=== PATIENT | male | born 1970 | race Two or more races ===

== ENCOUNTER 2018-01-30 04:41 | Inpatient (IN) | payer OTHER ==
[~2018-01-30] VITALS: Ht 170.2 cm; Wt 77.1 kg
[~2018-01-30 04:41] MED LIST: AMLO5TAB7 PO; ATOR20TA PO; CARV12.52 PO; CYAN100T3 PO; DARB100V IJ; INSU100I19 SQ; LACT10SO PO; LANC-346 MC; LEVO500C3 PO; LISI-603 PO; METR500T PO; PANT40TA2 PO; SEVE800T7 PO; SUB--70 MC
[2018-01-30 05:35] LABS: EOSINOPHILS % (AUTO) 0.1 % (0.0-6.0); HEMATOCRIT 28 % (39-51); HEMOGLOBIN 9.5 g/dL (13.5-17.5); LYMPHOCYTES # (AUTO) 1.5 /CMM (0.8-4.8); LYMPHOCYTES % (AUTO) 8.2 % (20.0-44.0); MEAN CORPUSCULAR HGB CONC 34 g/dl (31.0-36.0); MEAN CORPUSCULAR VOLUME 91 fL (80-96); MONOCYTES # (AUTO) 2.1 /CMM (0.1-1.30); MONOCYTES % (AUTO) 11.5 % (2.0-12.0); NEUTROPHILS # (AUTO) 14.9 /CMM (1.8-8.9); NEUTROPHILS % (AUTO) 80.2 % (43.0-81.0); PLATELET COUNT (AUTO) 232 /CMM (150-450); RDW COEFFICIENT OF VARIATION 16.3 (11.5-15.0); RED BLOOD CELL COUNT(AUTO) 3.06 MIL/uL (4.5-6.0); WHITE BLOOD COUNT (AUTO) 18.6 K/uL (4.3-11.0)
[2018-01-30] MEDS ORDERED: CEPH-570 PO (05:36)
[2018-01-30] MEDS ORDERED: HYDR-552 PO (05:36)
[2018-01-30] MEDS ORDERED: CARV25TA2 PO (05:36)
[2018-01-30] MEDS ORDERED: AMLO10TA6 PO (05:36)
[2018-01-30] MEDS ORDERED: CHOL100040 PO (05:36)
[2018-01-30] MEDS ORDERED: HYDR-4075 PO (05:36)
[2018-01-30 05:46] LABS: INR 1.3 (0.87-1.13)
[2018-01-30 05:49] LABS: TROPONIN I 0.033 ng/mL (0.00-0.056)
[2018-01-30 05:53] LABS: ALANINE AMINOTRANSFERASE 27 U/L (12-78); ALBUMIN 2.8 g/dL (3.4-5.0); ALKALINE PHOSPHATASE 205 U/L (46-116); ASPARTATE AMINOTRANSFERASE 35 U/L (15-37); BILIRUBIN,DIRECT 0.6 mg/dL (0.0-0.2); BILIRUBIN,TOTAL 1.6 mg/dL (0.2-1.0); CALCIUM, SERUM 8.8 mg/dL (8.5-10.1); CARBON DIOXIDE 24 mmol/L (21-32); CHLORIDE 92 mmol/L (98-107); GLUCOSE 146 mg/dL (74-106); POTASSIUM 5.3 mmol/L (3.5-5.1); SODIUM SERUM 133 mmol/L (136-145); TOTAL PROTEIN, SERUM 8.4 g/dL (6.4-8.2)
[2018-01-30 05:56] LABS: CREATININE 10.6 mg/dL (0.6-1.3); UREA NITROGEN, BLOOD 92 mg/dL (7-18)
[2018-01-30 05:57] LABS: MAGNESIUM 2.3 mg/dL (1.8-2.4); PHOSPHORUS 4.7 mg/dL (2.5-4.9)
[2018-01-30] MEDS ORDERED: VANCOMYCIN 1 GM VIAL ONE (05:59)
[2018-01-30] MEDS ORDERED: VANCOMYCIN 1 GM in IV D5W 250 ML IV ONE (06:00)
[2018-01-30] MEDS ORDERED: PIPERACILLIN /TAZOBACTAM 2.25 G in IV D5W 50 ML IV ONE (06:00)
[2018-01-30] MEDS ORDERED: SODIUM POLYSTYRENE SULFONATE 15 G/60 ML BOTTLE PO ONE (06:00)
[2018-01-30] MEDS ORDERED: PIPERACILLIN /TAZOBACTAM 2.25 G VIAL IV ONE (06:05)
[2018-01-30] MEDS ORDERED: SODIUM POLYSTYRENE SULFONATE 15 G/60 ML BOTTLE ONE (06:14)
[2018-01-30] MEDS ORDERED: MAGNESIUM HYDROXIDE 30 ML UDC PO PRN (06:30)
[2018-01-30] MEDS ORDERED: ZOLPIDEM TARTRATE 5 MG TABLET PO PRN (06:30)
[2018-01-30] MEDS ORDERED: ONDANSETRON HCL/PF 4 MG/2 ML VIAL IVP PRN (06:30)
[2018-01-30] MEDS ORDERED: MAG HYDROX/AL HYDROX/SIMETH 30 ML UDC PO PRN (06:30)
[2018-01-30] MEDS ORDERED: Z GUARD REMEDY 2 OZ OINT TP PRN (06:30)
[2018-01-30 07:48] LABS: CHOLESTEROL 84 mg/dL (<200); HDL CHOLESTEROL 19 mg/dL (40-60); LDL 21 mg/dL (0-99); TRIGLYCERIDES 167 mg/dL (30-150)
[2018-01-30] MEDS ORDERED: FEE PK DOSING 1 MIN EA MC ONE (07:55)
[2018-01-30 08:00] VITALS: BP 131/84
[2018-01-30] MEDS ORDERED: VANCOMYCIN 500 MG in IV D5W 100 ML IV PRN (08:00)
[2018-01-30] MEDS: PANTOPRAZOLE 40 MG TABLET.DR PO SCH (08:11)
[2018-01-30] MEDS ORDERED: ATOR40TA PO (08:13)
[2018-01-30] MEDS ORDERED: ERGO500014 PO (08:13)
[2018-01-30] MEDS ORDERED: FOLI0.8T23 PO (08:13)
[2018-01-30] MEDS: ACETAMINOPHEN 325 MG TABLET PO PRN ×2 (08:23→20:23)
[2018-01-30] MEDS ORDERED: DEXTROSE 50%-WATER 50 ML DISP.SYRIN IV PRN (10:30)
[2018-01-30 12:00] VITALS: BP 123/68
[2018-01-30] MEDS: BLOOD SUGAR DIAGNOSTIC 1 EACH STRIP IN SCH ×3 (12:16→21:06)
[2018-01-30] MEDS: PIPERACILLIN /TAZOBACTAM 2.25 G in IV D5W 50 ML IV SCH ×2 (12:24→20:22)
[2018-01-30] MEDS: INSULIN REGULAR, HUMAN 100 UNIT/ML 3 ML VIAL SQ PRN ×4 (12:41→21:09)
[2018-01-30] MEDS ORDERED: HYDROCODONE/APAP 5/325MG 1 EACH TABLET PO PRN (14:00)
[2018-01-30] MEDS: ERGOCALCIFEROL (VITAMIN D 2) 50,000 UNIT CAPSULE PO SCH (14:37)
[2018-01-30 16:00] VITALS: BP 138/74
[2018-01-30] MEDS: SEVELAMER CARBONATE 800 MG TABLET PO SCH (18:17)
[2018-01-30 20:00] VITALS: BP 108/63
[2018-01-30] MEDS: HYDROCODONE/APAP 5/325MG 1 EACH TABLET PO PRN (20:23)
[2018-01-30] MEDS: CARVEDILOL 12.5 MG TABLET PO SCH (20:23)
[2018-01-30 21:00] VITALS: BP 108/63
[2018-01-31] VITALS: BP_SYST 108; BP_SYST 115; BP_DIAS 51; BP_DIAS 63
[2018-01-31] MEDS: ACETAMINOPHEN 325 MG TABLET PO PRN ×4 (02:44→20:07)
[2018-01-31 04:00] VITALS: BP 119/59
[2018-01-31] MEDS: PIPERACILLIN /TAZOBACTAM 2.25 G in IV D5W 50 ML IV SCH ×3 (04:15→21:46)
[2018-01-31 06:41] LABS: CALCIUM, SERUM 8.1 mg/dL (8.5-10.1); MAGNESIUM 2.1 mg/dL (1.8-2.4); PHOSPHORUS 4.5 mg/dL (2.5-4.9); POTASSIUM 4.4 mmol/L (3.5-5.1)
[2018-01-31 06:45] LABS: CREATININE 8.2 mg/dL (0.6-1.3); EOSINOPHILS % (AUTO) 0.3 % (0.0-6.0); HEMATOCRIT 24 % (39-51); HEMOGLOBIN 7.9 g/dL (13.5-17.5); LYMPHOCYTES # (AUTO) 1.5 /CMM (0.8-4.8); MEAN CORPUSCULAR HGB CONC 34 g/dl (31.0-36.0); MEAN CORPUSCULAR VOLUME 92 fL (80-96); MONOCYTES # (AUTO) 1.5 /CMM (0.1-1.30); MONOCYTES % (AUTO) 11.2 % (2.0-12.0); NEUTROPHILS # (AUTO) 10.4 /CMM (1.8-8.9); NEUTROPHILS % (AUTO) 77.5 % (43.0-81.0); PLATELET COUNT (AUTO) 184 /CMM (150-450); RED BLOOD CELL COUNT(AUTO) 2.59 MIL/uL (4.5-6.0); WHITE BLOOD COUNT (AUTO) 13.4 K/uL (4.3-11.0)
[2018-01-31] MEDS ORDERED: PANTOPRAZOLE 40 MG TABLET.DR PO SCH (07:30)
[2018-01-31 08:00] VITALS: BP 115/61
[2018-01-31] MEDS: BLOOD SUGAR DIAGNOSTIC 1 EACH STRIP IN SCH ×4 (08:05→21:54)
[2018-01-31] MEDS: INSULIN REGULAR, HUMAN 100 UNIT/ML 3 ML VIAL SQ PRN ×3 (08:37→21:55)
[2018-01-31] MEDS: FOLIC ACID 1 MG TABLET PO SCH (08:48)
[2018-01-31] MEDS: VITAMIN B COMP W-C 1 TAB TABLET PO SCH (08:48)
[2018-01-31] MEDS: SEVELAMER CARBONATE 800 MG TABLET PO SCH ×3 (08:49→17:08)
[2018-01-31] MEDS: PANTOPRAZOLE 40 MG TABLET.DR PO SCH (08:49)
[2018-01-31] MEDS: ATORVASTATIN 40 MG TABLET PO SCH (08:49)
[2018-01-31] MEDS: AMLODIPINE BESYLATE 10 MG TABLET PO SCH (08:50)
[2018-01-31] MEDS: CARVEDILOL 12.5 MG TABLET PO SCH ×2 (08:50→21:47)
[2018-01-31] MEDS: hydrALAZINE HCL 10 MG TABLET PO SCH (08:51)
[2018-01-31] MEDS: LISINOPRIL (20MG) 20 MG TABLET PO SCH (08:51)
[2018-01-31 12:00] VITALS: BP 104/50
[2018-01-31] MEDS: HYDROCODONE/APAP 5/325MG 1 EACH TABLET PO PRN (14:45)
[2018-01-31 16:00] VITALS: BP_SYST 104; BP_SYST 109; BP_DIAS 50; BP_DIAS 54
[2018-01-31] MEDS: LACTOBACILLUS RHAMNOSUS GG 1 EACH CAP.SPRINK PO SCH (17:08)
[2018-01-31 20:00] VITALS: BP 119/57
[2018-02-01] VITALS (7 sets, daily range): BP systolic 77–108; BP diastolic 37–55
[2018-02-01] MEDS ORDERED: DEXAMETHASONE SOD PHOSPHATE 10 MG/ML VIAL ONE (04:29)
[2018-02-01] MEDS: PIPERACILLIN /TAZOBACTAM 2.25 G in IV D5W 50 ML IV SCH ×2 (04:57→14:11)
[2018-02-01] MEDS: ACETAMINOPHEN 325 MG TABLET PO PRN ×3 (05:37→20:13)
[2018-02-01] MEDS: PANTOPRAZOLE 40 MG TABLET.DR PO SCH (07:30)
[2018-02-01 07:45] LABS: EOSINOPHILS % (AUTO) 0.4 % (0.0-6.0); LYMPHOCYTES # (AUTO) 0.9 /CMM (0.8-4.8); LYMPHOCYTES % (AUTO) 5.6 % (20.0-44.0); MEAN CORPUSCULAR HGB CONC 34 g/dl (31.0-36.0); MEAN CORPUSCULAR VOLUME 91 fL (80-96); MONOCYTES # (AUTO) 1.5 /CMM (0.1-1.30); NEUTROPHILS # (AUTO) 13.9 /CMM (1.8-8.9); PLATELET COUNT (AUTO) 196 /CMM (150-450); RDW COEFFICIENT OF VARIATION 16.4 (11.5-15.0); RED BLOOD CELL COUNT(AUTO) 2.22 MIL/uL (4.5-6.0); WHITE BLOOD COUNT (AUTO) 16.4 K/uL (4.3-11.0)
[2018-02-01 07:47] LABS: CALCIUM, SERUM 7.9 mg/dL (8.5-10.1); MAGNESIUM 2.3 mg/dL (1.8-2.4); PHOSPHORUS 4.5 mg/dL (2.5-4.9); POTASSIUM 4.3 mmol/L (3.5-5.1)
[2018-02-01 07:48] LABS: HEMOGLOBIN 6.8 g/dL (13.5-17.5)
[2018-02-01 07:49] LABS: HEMATOCRIT 20 % (39-51)
[2018-02-01] MEDS: AMLODIPINE BESYLATE 10 MG TABLET PO SCH (09:00)
[2018-02-01] MEDS: hydrALAZINE HCL 10 MG TABLET PO SCH (09:00)
[2018-02-01] MEDS ORDERED: LIDOCAINE 1% INJ 50 ML MDV IJ ONE (09:00)
[2018-02-01] MEDS: LISINOPRIL (20MG) 20 MG TABLET PO SCH (09:00)
[2018-02-01] MEDS: CARVEDILOL 12.5 MG TABLET PO SCH ×2 (09:00→20:59)
[2018-02-01] MEDS: BLOOD SUGAR DIAGNOSTIC 1 EACH STRIP IN SCH ×4 (09:02→22:35)
[2018-02-01] MEDS: SEVELAMER CARBONATE 800 MG TABLET PO SCH ×3 (09:11→17:25)
[2018-02-01] MEDS: LACTOBACILLUS RHAMNOSUS GG 1 EACH CAP.SPRINK PO SCH ×2 (09:11→17:25)
[2018-02-01] MEDS: VITAMIN B COMP W-C 1 TAB TABLET PO SCH (09:11)
[2018-02-01] MEDS: FOLIC ACID 1 MG TABLET PO SCH (09:11)
[2018-02-01] MEDS: ATORVASTATIN 40 MG TABLET PO SCH (09:12)
[2018-02-01 09:49] LABS: BAND % (MANUAL) 1 % (0.0-5.0); EOSINOPHILS % (MANUAL) 1 % (0-4); LYMPHOCYTES % (MANUAL) 8 % (16-48); MONOCYTES % (MANUAL) 8 % (0-11.0); NEUTROPHILS % (MANUAL) 82 (42-76)
[2018-02-01] MEDS ORDERED: VANCOMYCIN 1 GM in IV D5W 250 ML IV ONE (15:00)
[2018-02-01] MEDS: RIFAMPIN 300 MG CAPSULE PO SCH (17:38)
[2018-02-01] MEDS: INSULIN REGULAR, HUMAN 100 UNIT/ML 3 ML VIAL SQ PRN (17:48)
[2018-02-02 04:00] VITALS: BP 102/49
[2018-02-02 06:33] LABS: BASOPHILS % (AUTO) 0.2 % (0.0-2.0); EOSINOPHILS % (AUTO) 0.4 % (0.0-6.0); HEMATOCRIT 23 % (39-51); HEMOGLOBIN 7.7 g/dL (13.5-17.5); LYMPHOCYTES # (AUTO) 1.3 /CMM (0.8-4.8); LYMPHOCYTES % (AUTO) 8.9 % (20.0-44.0); MEAN CORPUSCULAR HGB CONC 34 g/dl (31.0-36.0); MEAN CORPUSCULAR VOLUME 91 fL (80-96); MONOCYTES # (AUTO) 1.2 /CMM (0.1-1.30); MONOCYTES % (AUTO) 8.1 % (2.0-12.0); NEUTROPHILS # (AUTO) 12.3 /CMM (1.8-8.9); NEUTROPHILS % (AUTO) 82.4 % (43.0-81.0); PLATELET COUNT (AUTO) 235 /CMM (150-450); RED BLOOD CELL COUNT(AUTO) 2.51 MIL/uL (4.5-6.0)
[2018-02-02 06:53] LABS: CALCIUM, SERUM 8.3 mg/dL (8.5-10.1); POTASSIUM 4.5 mmol/L (3.5-5.1)
[2018-02-02 07:09] LABS: CREATININE 7.9 mg/dL (0.6-1.3)
[2018-02-02 08:00] VITALS: BP 125/47
[2018-02-02] MEDS: ACETAMINOPHEN 325 MG TABLET PO PRN ×3 (08:09→22:56)
[2018-02-02] MEDS: ATORVASTATIN 40 MG TABLET PO SCH (08:10)
[2018-02-02] MEDS: FOLIC ACID 1 MG TABLET PO SCH (08:11)
[2018-02-02] MEDS: LACTOBACILLUS RHAMNOSUS GG 1 EACH CAP.SPRINK PO SCH ×2 (08:14→16:57)
[2018-02-02] MEDS: VITAMIN B COMP W-C 1 TAB TABLET PO SCH (08:14)
[2018-02-02] MEDS: PANTOPRAZOLE 40 MG TABLET.DR PO SCH (08:17)
[2018-02-02] MEDS: RIFAMPIN 300 MG CAPSULE PO SCH (08:18)
[2018-02-02] MEDS: SEVELAMER CARBONATE 800 MG TABLET PO SCH ×3 (08:18→17:00)
[2018-02-02] MEDS: BLOOD SUGAR DIAGNOSTIC 1 EACH STRIP IN SCH ×4 (08:33→21:35)
[2018-02-02] MEDS: hydrALAZINE HCL 10 MG TABLET PO SCH (08:33)
[2018-02-02] MEDS: AMLODIPINE BESYLATE 10 MG TABLET PO SCH (08:34)
[2018-02-02] MEDS: LISINOPRIL (20MG) 20 MG TABLET PO SCH (08:34)
[2018-02-02] MEDS: CARVEDILOL 12.5 MG TABLET PO SCH ×2 (08:34→20:28)
[2018-02-02] MEDS: INSULIN REGULAR, HUMAN 100 UNIT/ML 3 ML VIAL SQ PRN ×3 (13:20→21:36)
[2018-02-02 16:00] VITALS: BP 122/45
[2018-02-02 20:15] VITALS: BP 97/67
[2018-02-03 04:00] VITALS: BP 136/56
[2018-02-03 07:00] LABS: BASOPHILS # (AUTO) 0.2 /CMM (0.0-0.2); BASOPHILS % (AUTO) 1.6 % (0.0-2.0); EOSINOPHILS % (AUTO) 0.4 % (0.0-6.0); HEMATOCRIT 23 % (39-51); LYMPHOCYTES # (AUTO) 1.2 /CMM (0.8-4.8); LYMPHOCYTES % (AUTO) 8.3 % (20.0-44.0); MEAN CORPUSCULAR HGB CONC 34 g/dl (31.0-36.0); MEAN CORPUSCULAR VOLUME 91 fL (80-96); MONOCYTES # (AUTO) 1.1 /CMM (0.1-1.30); MONOCYTES % (AUTO) 7.7 % (2.0-12.0); NEUTROPHILS # (AUTO) 11.5 /CMM (1.8-8.9); PLATELET COUNT (AUTO) 298 /CMM (150-450); RDW COEFFICIENT OF VARIATION 16.6 (11.5-15.0); RED BLOOD CELL COUNT(AUTO) 2.59 MIL/uL (4.5-6.0)
[2018-02-03] MEDS: PANTOPRAZOLE 40 MG TABLET.DR PO SCH (07:30)
[2018-02-03 07:40] LABS: CALCIUM, SERUM 8.4 mg/dL (8.5-10.1); POTASSIUM 4.9 mmol/L (3.5-5.1)
[2018-02-03 07:41] LABS: CREATININE 9.8 mg/dL (0.6-1.3)
[2018-02-03 08:00] VITALS: BP 126/58
[2018-02-03] MEDS: SEVELAMER CARBONATE 800 MG TABLET PO SCH ×3 (08:00→17:03)
[2018-02-03] MEDS: hydrALAZINE HCL 10 MG TABLET PO SCH (09:00)
[2018-02-03] MEDS: RIFAMPIN 300 MG CAPSULE PO SCH (09:00)
[2018-02-03] MEDS: LISINOPRIL (20MG) 20 MG TABLET PO SCH (09:00)
[2018-02-03] MEDS: CARVEDILOL 12.5 MG TABLET PO SCH ×2 (09:00→21:00)
[2018-02-03] MEDS: AMLODIPINE BESYLATE 10 MG TABLET PO SCH (09:00)
[2018-02-03] MEDS: LACTOBACILLUS RHAMNOSUS GG 1 EACH CAP.SPRINK PO SCH ×2 (09:00→17:03)
[2018-02-03] MEDS: VITAMIN B COMP W-C 1 TAB TABLET PO SCH (09:00)
[2018-02-03] MEDS: FOLIC ACID 1 MG TABLET PO SCH (09:00)
[2018-02-03] MEDS: ATORVASTATIN 40 MG TABLET PO SCH (09:00)
[2018-02-03] MEDS ORDERED: EPOETIN ALFA (10,000 UNIT) 10,000 UNIT/ML VIAL SQ ONE (09:00)
[2018-02-03] MEDS: BLOOD SUGAR DIAGNOSTIC 1 EACH STRIP IN SCH ×4 (10:05→21:35)
[2018-02-03] MEDS ORDERED: BUPIVACAINE 0.25% 75 MG/30 ML VIAL ONE (12:02)
[2018-02-03] MEDS ORDERED: MIDAZOLAM HCL 2 MG/2ML VIAL ONE (12:03)
[2018-02-03] MEDS ORDERED: FENTANYL PF 100MCG/2ML AMPUL ONE (12:03)
[2018-02-03 12:05] VITALS: BP 139/64
[2018-02-03] MEDS: INSULIN REGULAR, HUMAN 100 UNIT/ML 3 ML VIAL SQ PRN ×3 (14:16→21:53)
[2018-02-03 16:00] VITALS: BP 146/68
[2018-02-03] MEDS: ACETAMINOPHEN 325 MG TABLET PO PRN (19:50)
[2018-02-03 20:00] VITALS: BP 119/54
[2018-02-04] VITALS: BP_SYST 110; BP_SYST 119; BP_DIAS 54; BP_DIAS 62
[2018-02-04 04:00] VITALS: BP 123/59
[2018-02-04 07:18] LABS: CALCIUM, SERUM 8.4 mg/dL (8.5-10.1); POTASSIUM 4.8 mmol/L (3.5-5.1)
[2018-02-04 07:33] LABS: CREATININE 9.7 mg/dL (0.6-1.3)
[2018-02-04 08:00] VITALS: BP 127/61
[2018-02-04] MEDS: SEVELAMER CARBONATE 800 MG TABLET PO SCH ×3 (08:29→17:23)
[2018-02-04] MEDS: PANTOPRAZOLE 40 MG TABLET.DR PO SCH (08:29)
[2018-02-04] MEDS: BLOOD SUGAR DIAGNOSTIC 1 EACH STRIP IN SCH ×4 (08:29→21:41)
[2018-02-04] MEDS: INSULIN REGULAR, HUMAN 100 UNIT/ML 3 ML VIAL SQ PRN ×3 (08:52→17:32)
[2018-02-04] MEDS: ATORVASTATIN 40 MG TABLET PO SCH (08:53)
[2018-02-04] MEDS: RIFAMPIN 300 MG CAPSULE PO SCH (08:53)
[2018-02-04] MEDS: LACTOBACILLUS RHAMNOSUS GG 1 EACH CAP.SPRINK PO SCH ×2 (08:53→17:23)
[2018-02-04] MEDS: VITAMIN B COMP W-C 1 TAB TABLET PO SCH (08:53)
[2018-02-04] MEDS: FOLIC ACID 1 MG TABLET PO SCH (08:53)
[2018-02-04] MEDS: CARVEDILOL 12.5 MG TABLET PO SCH ×2 (08:53→21:40)
[2018-02-04] MEDS: AMLODIPINE BESYLATE 10 MG TABLET PO SCH (08:54)
[2018-02-04] MEDS: hydrALAZINE HCL 10 MG TABLET PO SCH (08:54)
[2018-02-04] MEDS: LISINOPRIL (20MG) 20 MG TABLET PO SCH (08:54)
[2018-02-04] MEDS: DOCUSATE SODIUM 100 MG CAPSULE PO SCH ×3 (11:21→17:23)
[2018-02-04 13:31] LABS: BASOPHILS % (AUTO) 0.2 % (0.0-2.0); EOSINOPHILS % (AUTO) 1.3 % (0.0-6.0); HEMATOCRIT 23 % (39-51); HEMOGLOBIN 7.7 g/dL (13.5-17.5); LYMPHOCYTES # (AUTO) 1.6 /CMM (0.8-4.8); LYMPHOCYTES % (AUTO) 12.3 % (20.0-44.0); MEAN CORPUSCULAR HGB CONC 34 g/dl (31.0-36.0); MEAN CORPUSCULAR VOLUME 90 fL (80-96); MONOCYTES # (AUTO) 1.6 /CMM (0.1-1.30); NEUTROPHILS # (AUTO) 9.8 /CMM (1.8-8.9); NEUTROPHILS % (AUTO) 74.2 % (43.0-81.0); PLATELET COUNT (AUTO) 331 /CMM (150-450); RDW COEFFICIENT OF VARIATION 16.9 (11.5-15.0); RED BLOOD CELL COUNT(AUTO) 2.49 MIL/uL (4.5-6.0); WHITE BLOOD COUNT (AUTO) 13.3 K/uL (4.3-11.0)
[2018-02-04 16:00] VITALS: BP 140/65
[2018-02-04 20:00] VITALS: BP 145/68
[2018-02-04] MEDS: SENNOSIDES 8.6 MG TABLET PO SCH (21:39)
[2018-02-05 04:00] VITALS: BP 144/69
[2018-02-05 06:48] LABS: CALCIUM, SERUM 8.2 mg/dL (8.5-10.1); POTASSIUM 4.8 mmol/L (3.5-5.1)
[2018-02-05 07:37] LABS: CREATININE 11.2 mg/dL (0.6-1.3)
[2018-02-05 08:00] VITALS: BP 134/65
[2018-02-05 08:12] VITALS: BP 134/65
[2018-02-05] MEDS: BLOOD SUGAR DIAGNOSTIC 1 EACH STRIP IN SCH ×4 (08:29→21:44)
[2018-02-05] MEDS: PANTOPRAZOLE 40 MG TABLET.DR PO SCH (08:29)
[2018-02-05] MEDS: SEVELAMER CARBONATE 800 MG TABLET PO SCH ×3 (08:29→17:39)
[2018-02-05] MEDS: RIFAMPIN 300 MG CAPSULE PO SCH (08:34)
[2018-02-05] MEDS: DOCUSATE SODIUM 100 MG CAPSULE PO SCH ×3 (08:34→17:39)
[2018-02-05] MEDS: VITAMIN B COMP W-C 1 TAB TABLET PO SCH (08:35)
[2018-02-05] MEDS: hydrALAZINE HCL 10 MG TABLET PO SCH (08:35)
[2018-02-05] MEDS: LACTOBACILLUS RHAMNOSUS GG 1 EACH CAP.SPRINK PO SCH ×2 (08:35→17:39)
[2018-02-05] MEDS: FOLIC ACID 1 MG TABLET PO SCH (08:35)
[2018-02-05] MEDS: CARVEDILOL 12.5 MG TABLET PO SCH ×2 (08:36→21:00)
[2018-02-05] MEDS: LISINOPRIL (20MG) 20 MG TABLET PO SCH (08:37)
[2018-02-05] MEDS: ATORVASTATIN 40 MG TABLET PO SCH (08:37)
[2018-02-05] MEDS: AMLODIPINE BESYLATE 10 MG TABLET PO SCH (08:37)
[2018-02-05] MEDS: INSULIN REGULAR, HUMAN 100 UNIT/ML 3 ML VIAL SQ PRN ×2 (11:29→17:53)
[2018-02-05 16:00] VITALS: BP 167/85
[2018-02-05] MEDS ORDERED: TRAMADOL HCL 50 MG TABLET PO PRN (16:00)
[2018-02-05 20:00] VITALS: BP 138/72
[2018-02-05 20:03] VITALS: BP 138/72
[2018-02-05] MEDS: SENNOSIDES 8.6 MG TABLET PO SCH (21:39)
[2018-02-05] MEDS: HYDROCODONE/APAP 5/325MG 1 EACH TABLET PO PRN (21:49)
[2018-02-06 04:00] VITALS: BP 138/72
[2018-02-06 07:50] LABS: BASOPHILS % (AUTO) 0.1 % (0.0-2.0); EOSINOPHILS % (AUTO) 2.4 % (0.0-6.0); HEMATOCRIT 23 % (39-51); HEMOGLOBIN 7.9 g/dL (13.5-17.5); LYMPHOCYTES # (AUTO) 1.3 /CMM (0.8-4.8); LYMPHOCYTES % (AUTO) 11.6 % (20.0-44.0); MEAN CORPUSCULAR HGB CONC 34 g/dl (31.0-36.0); MEAN CORPUSCULAR VOLUME 90 fL (80-96); MONOCYTES # (AUTO) 1.5 /CMM (0.1-1.30); MONOCYTES % (AUTO) 13.5 % (2.0-12.0); NEUTROPHILS # (AUTO) 7.9 /CMM (1.8-8.9); NEUTROPHILS % (AUTO) 72.4 % (43.0-81.0); PLATELET COUNT (AUTO) 419 /CMM (150-450); RDW COEFFICIENT OF VARIATION 16.2 (11.5-15.0); RED BLOOD CELL COUNT(AUTO) 2.59 MIL/uL (4.5-6.0); WHITE BLOOD COUNT (AUTO) 10.9 K/uL (4.3-11.0)
[2018-02-06 08:00] VITALS: BP 150/70
[2018-02-06 08:01] LABS: CALCIUM, SERUM 8.3 mg/dL (8.5-10.1); POTASSIUM 4.5 mmol/L (3.5-5.1)
[2018-02-06 08:02] LABS: CREATININE 8.6 mg/dL (0.6-1.3)
[2018-02-06] MEDS: BLOOD SUGAR DIAGNOSTIC 1 EACH STRIP IN SCH ×4 (08:24→21:05)
[2018-02-06] MEDS: FOLIC ACID 1 MG TABLET PO SCH (08:25)
[2018-02-06] MEDS: DOCUSATE SODIUM 100 MG CAPSULE PO SCH ×3 (08:25→16:58)
[2018-02-06] MEDS: LACTOBACILLUS RHAMNOSUS GG 1 EACH CAP.SPRINK PO SCH ×2 (08:25→16:58)
[2018-02-06] MEDS: SEVELAMER CARBONATE 800 MG TABLET PO SCH ×3 (08:26→17:00)
[2018-02-06] MEDS: RIFAMPIN 300 MG CAPSULE PO SCH (08:26)
[2018-02-06] MEDS: VITAMIN B COMP W-C 1 TAB TABLET PO SCH (08:27)
[2018-02-06] MEDS: ATORVASTATIN 40 MG TABLET PO SCH (08:27)
[2018-02-06] MEDS: PANTOPRAZOLE 40 MG TABLET.DR PO SCH (08:27)
[2018-02-06] MEDS: LISINOPRIL (20MG) 20 MG TABLET PO SCH (08:29)
[2018-02-06] MEDS: hydrALAZINE HCL 10 MG TABLET PO SCH (08:35)
[2018-02-06] MEDS: CARVEDILOL 12.5 MG TABLET PO SCH ×2 (08:35→20:09)
[2018-02-06] MEDS: AMLODIPINE BESYLATE 10 MG TABLET PO SCH (08:36)
[2018-02-06] MEDS: LIDOCAINE 5% (PATCH) 1 EA PATCH TP SCH (08:41)
[2018-02-06] MEDS: INSULIN REGULAR, HUMAN 100 UNIT/ML 3 ML VIAL SQ PRN ×4 (08:42→21:07)
[2018-02-06] MEDS ORDERED: KEY,NONCONTROL,TO KEEP IN PYXI 1 EA MC ONE (11:56)
[2018-02-06 13:00] VITALS: BP 133/75
[2018-02-06] MEDS: ERGOCALCIFEROL (VITAMIN D 2) 50,000 UNIT CAPSULE PO SCH (13:06)
[2018-02-06] MEDS ORDERED: FEE PK DOSING 1 MIN EA MC ONE (15:21)
[2018-02-06 16:00] VITALS: BP 157/79
[2018-02-06 20:00] VITALS: BP 167/79
[2018-02-06] MEDS: SENNOSIDES 8.6 MG TABLET PO SCH (21:06)
[2018-02-07 04:00] VITALS: BP_SYST 141; BP_SYST 146; BP_DIAS 73; BP_DIAS 99
[2018-02-07 08:00] VITALS: BP 140/64
[2018-02-07] MEDS: BLOOD SUGAR DIAGNOSTIC 1 EACH STRIP IN SCH ×3 (08:06→17:26)
[2018-02-07] MEDS: ATORVASTATIN 40 MG TABLET PO SCH (08:13)
[2018-02-07] MEDS: RIFAMPIN 300 MG CAPSULE PO SCH (08:13)
[2018-02-07] MEDS: SEVELAMER CARBONATE 800 MG TABLET PO SCH ×4 (08:13→17:13)
[2018-02-07] MEDS: LACTOBACILLUS RHAMNOSUS GG 1 EACH CAP.SPRINK PO SCH ×2 (08:13→16:48)
[2018-02-07] MEDS: PANTOPRAZOLE 40 MG TABLET.DR PO SCH (08:13)
[2018-02-07] MEDS: DOCUSATE SODIUM 100 MG CAPSULE PO SCH ×3 (08:13→16:45)
[2018-02-07] MEDS: FOLIC ACID 1 MG TABLET PO SCH (08:13)
[2018-02-07] MEDS: VITAMIN B COMP W-C 1 TAB TABLET PO SCH (08:13)
[2018-02-07] MEDS: LIDOCAINE 5% (PATCH) 1 EA PATCH TP SCH (08:14)
[2018-02-07] MEDS: INSULIN REGULAR, HUMAN 100 UNIT/ML 3 ML VIAL SQ PRN ×3 (08:16→17:33)
[2018-02-07] MEDS ORDERED: EPOETIN ALFA (10,000 UNIT) 10,000 UNIT/ML VIAL IV SCH (08:30)
[2018-02-07] MEDS: AMLODIPINE BESYLATE 10 MG TABLET PO SCH (09:00)
[2018-02-07] MEDS: CARVEDILOL 12.5 MG TABLET PO SCH (09:00)
[2018-02-07] MEDS: LISINOPRIL (20MG) 20 MG TABLET PO SCH (09:00)
[2018-02-07] MEDS: hydrALAZINE HCL 10 MG TABLET PO SCH (09:00)
[2018-02-07 16:00] VITALS: BP 146/65
[2018-05-23] MEDS ORDERED: LACT10SO PO (11:23)
== END 2018-02-07 20:13 | disposition home or self-care (01) | DRG 720 ==
LOC: ER 04:44 → TELE1 05:48 → MEDSG1 02-01 11:33
PROVIDERS: ADMIT Hospitalist; ATTEND Hospitalist
PROC: 5A1D70Z Performance of Urinary Filtration, Intermittent, Less than 6 Hours Per Day (ICD-10-PCS; 2018-01-30)
PROC: 06PYX3Z Removal of Infusion Device from Lower Vein, External Approach (ICD-10-PCS; principal; 2018-02-01)
PROC: 30233N1 Transfusion of Nonautologous Red Blood Cells into Peripheral Vein, Percutaneous Approach (ICD-10-PCS; principal; 2018-02-01)
PROC: 5A1D70Z Performance of Urinary Filtration, Intermittent, Less than 6 Hours Per Day (ICD-10-PCS; principal; 2018-02-01)
PROC: 5A1D70Z Performance of Urinary Filtration, Intermittent, Less than 6 Hours Per Day (ICD-10-PCS; 2018-02-03)
PROC: 0Y9N3ZZ Drainage of Left Foot, Percutaneous Approach (ICD-10-PCS; 2018-02-03)
PROC: 5A1D70Z Performance of Urinary Filtration, Intermittent, Less than 6 Hours Per Day (ICD-10-PCS; 2018-02-05)
PROC: 5A1D70Z Performance of Urinary Filtration, Intermittent, Less than 6 Hours Per Day (ICD-10-PCS; 2018-02-07)
DX: A41.9 Sepsis, unspecified organism (principal); E11.22 Type 2 diabetes mellitus with diabetic chronic kidney disease; N18.6 End stage renal disease; I12.0 Hypertensive chronic kidney disease with stage 5 chronic kidney disease or end stage renal disease; S22.31XA Fracture of one rib, right side, initial encounter for closed fracture; S90.02XA Contusion of left ankle, initial encounter; L02.416 Cutaneous abscess of left lower limb; E11.42 Type 2 diabetes mellitus with diabetic polyneuropathy; E87.5 Hyperkalemia; Z99.2 Dependence on renal dialysis; D63.1 Anemia in chronic kidney disease; M14.672 Charcot's joint, left ankle and foot; E78.5 Hyperlipidemia, unspecified; K74.60 Unspecified cirrhosis of liver; K52.9 Noninfective gastroenteritis and colitis, unspecified; Y93.9 Activity, unspecified; Y92.009 Unspecified place in unspecified non-institutional (private) residence as the place of occurrence of the external cause; E11.69 Type 2 diabetes mellitus with other specified complication; M86.8X7 Other osteomyelitis, ankle and foot; Z90.81 Acquired absence of spleen; G89.4 Chronic pain syndrome; B95.62 Methicillin resistant Staphylococcus aureus infection as the cause of diseases classified elsewhere
CPT/HCPCS: 36415; 71045-TC; 71250-TC; 73600-TC; 73721-TC; 80048-TC; 80061-TC; 80076-TC; 80202-TC; 82962-TC; 83605-TC; 83735-TC; 84100-TC; 84484-TC; 85025-TC; 85730-TC; 86850-TC; 86921-TC; 87040-TC; 87070-TC; 87075-TC; 87081-TC; 90935-TC; 93307-TC; A4606; A6253; A6402; A6407; J0885; J1100; J1815; J2250; J2405; J2543; J3010; J3370; J3490; J7030; J7050; J7060; P9016-BL; Z7610

== ENCOUNTER 2018-05-20 08:13 | Inpatient (IN) | payer OTHER ==
[~2018-05-20] VITALS: Ht 175.3 cm; Wt 77.1 kg
[~2018-05-20 08:13] MED LIST changes: +AMLO10TA6 PO; -AMLO5TAB7 PO; -ATOR20TA PO; +ATOR40TA PO; -CARV12.52 PO; +CARV25TA2 PO; -CYAN100T3 PO; -DARB100V IJ; +ERGO500014 PO; +FOLI0.8T23 PO; +HYDR-4075 PO; +HYDR-552 PO; -INSU100I19 SQ; -LACT10SO PO; -LANC-346 MC; -LEVO500C3 PO; -METR500T PO; -SUB--70 MC
--- NOTE | 2018-05-20 08:25 | NUR ---
BIB [facility] C/O ALTERED DURING TREATMENT. UPON ARRIVAL, PATIENT IS A/XO 2, BREATHING EVEN AND UNLABORED. ABLE TO STATE HE TOOK A SLEEPING PILL LAST NIGHT. NO SOB, NAD, VITALS STABLE. SAFETY AND COMFORT MEASURES IN PLACE. NEW IV STARTED ON RIGHT FA, 18G. BLOOD DRAWN AND SENT TO LAB. WILL CONTINUE TO MONITOR.
--- NOTE | 2018-05-20 08:45 | NUR ---
PATIENT TAKEN TO RADIOLOGY VIA STRETCHER.
[2018-05-20 08:52] LABS: HEMOGLOBIN 11.7 g/dL (13.5-17.5); RED BLOOD CELL COUNT(AUTO) 4.02 MIL/uL (4.5-6.0); WHITE BLOOD COUNT (AUTO) 6.9 K/uL (4.3-11.0)
[2018-05-20 08:53] LABS: EOSINOPHILS % (AUTO) 3.8 % (0.0-6.0); HEMATOCRIT 35 % (39-51); LYMPHOCYTES % (AUTO) 26.3 % (20.0-44.0); MEAN CORPUSCULAR HEMOGLOBIN 29 PG (26.0-33.0); MEAN CORPUSCULAR HGB CONC 34 g/dl (31.0-36.0); MEAN CORPUSCULAR VOLUME 86 fL (80-96); MONOCYTES % (AUTO) 17.7 % (2.0-12.0); NEUTROPHILS % (AUTO) 51.2 % (43.0-81.0); PLATELET COUNT (AUTO) 183 /CMM (150-450); RDW COEFFICIENT OF VARIATION 18.3 (11.5-15.0)
[2018-05-20 08:55] LABS: CALCIUM, SERUM 8.9 mg/dL (8.5-10.1); CARBON DIOXIDE 26 mmol/L (21-32); CHLORIDE 100 mmol/L (98-107); CREATININE 5.5 mg/dL (0.6-1.3); GLUCOSE 119 mg/dL (74-106); POTASSIUM 3.4 mmol/L (3.5-5.1); SERUM AMMONIA 129 umol/L (11-32); SODIUM SERUM 138 mmol/L (136-145); UREA NITROGEN, BLOOD 24 mg/dL (7-18)
--- NOTE | 2018-05-20 08:55 | NUR ---
PATIENT RETURNED FROM RADIOLOGY IN STABLE CONDITION.
--- NOTE | 2018-05-20 08:59 | NUR ---
UNABLE TO OBTAIN URINE FROM PATIENT. PATIENT NO LONGER PRODUCES URINE D/T HD
[2018-05-20 09:02] LABS: ALANINE AMINOTRANSFERASE 19 U/L (12-78); ALCOHOL, BLOOD < 3 mg/dL (0-0); ALKALINE PHOSPHATASE 291 U/L (46-116); ASPARTATE AMINOTRANSFERASE 33 U/L (15-37); BILIRUBIN,DIRECT 0.4 mg/dL (0.0-0.2); TOTAL PROTEIN, SERUM 8.3 g/dL (6.4-8.2)
[2018-05-20 09:12] LABS: INR 1.17 (0.87-1.13)
[2018-05-20 09:27] LABS: TROPONIN I 0.033 ng/mL (0.00-0.056)
[2018-05-20] MEDS ORDERED: LACTULOSE 10 G/15 ML UDC (PYXIS) ONE (09:28)
[2018-05-20] MEDS ORDERED: LACTULOSE 10 G/15 ML UDC (PYXIS) PO ONE (09:30)
[2018-05-20 09:42] LABS: THYROID STIMULATING HORMONE 5.349 uIU/mL (0.358-3.74)
--- NOTE | 2018-05-20 09:54 | NUR ---
PAGED DR. GREGG FOR ADMISSION
[2018-05-20 10:27] LABS: EOSINOPHILS % (MANUAL) 3 % (0-4); LYMPHOCYTES % (MANUAL) 21 % (16-48); MONOCYTES % (MANUAL) 15 % (0-11.0); NEUTROPHILS % (MANUAL) 61 (42-76)
--- NOTE | 2018-05-20 10:29 | NUR ---
DR. GREGG PAGED SECOND TIME.
--- NOTE | 2018-05-20 10:37 | NUR ---
IQRA CHRISTIANSEN PAGED FOR ADMISSION.
--- NOTE | 2018-05-20 11:11 | NUR ---
REPORT GIVEN TO AGA SALGADO FOR BO UPON ADMISSION.
--- NOTE | 2018-05-20 11:31 | NUR ---
PATIENT TRANSPORTED TO [facility] VIA ACLS PROTOCOL. RNAGA TO PROVIDE BO.
[2018-05-20 11:41] VITALS: BP 179/90
--- NOTE | 2018-05-20 12:00 | NUR ---
SAILING INSTRUCTOR NOTE RECEIVED PATIENT FROM ER WITH DX HEPATIC ENCEPHALOPATHY, ALERT ,ORIENTED X3 , PLACED ON TELE MONITOR SR , ON 2L NC ,NO SOB NOTED , ON TELE MONITOR HR SR 74 , RT FA KYLAH 18 HL INTACT , ADMITTED UNDER CARE IQRA SALGADO ORACLE FINANCIALS CONSULTANT , PLAN OF CARE DISCUSSED WITH PATIENT , BED IN LOWEST AND LOCKED POSITION , CALL LIGHT WITHIN REACH , HOSPITAL,ORIENTATION DONE ,VS TAKEN BODY CHECK DONE
[2018-05-20] MEDS ORDERED: LACTULOSE 10 G/15 ML UDC (PYXIS) PO PRN (12:30)
[2018-05-20 12:40] LABS: MAGNESIUM 2.4 mg/dL (1.8-2.4)
--- NOTE | 2018-05-20 13:07 | NUR ---
QUALITY CONTROL DIRECTOR NOTE CALLED TO IQRA CHRISTIANSEN RN N P NOTIFIED THAT WE NEED ADMISSION ORDERS , STATED THAT WILL DO SOON, WILL F\U Addendum: 05/20/18 at 1701 by AGA SZYMANSKI RN SPOKE WITH [facility] SALGADO FIELD HAULER NOTIFIED THAT MED RECON NEED TO BE DONE STATED THAT WILL DO SOON
[2018-05-20] MEDS ORDERED: ONDANSETRON HCL/PF 4 MG/2 ML VIAL IVP PRN (13:30)
[2018-05-20] MEDS ORDERED: MAGNESIUM HYDROXIDE 30 ML UDC PO PRN (13:30)
[2018-05-20] MEDS ORDERED: Z GUARD REMEDY 2 OZ OINT TP PRN (13:30)
[2018-05-20] MEDS ORDERED: ZOLPIDEM TARTRATE 5 MG TABLET PO PRN (13:30)
[2018-05-20] MEDS: LACTULOSE 10 G/15 ML UDC (PYXIS) PO SCH ×2 (14:30→18:51)
[2018-05-20] MEDS ORDERED: hydrALAZINE HCL IV 20 MG VIAL IV STA (14:38)
--- NOTE | 2018-05-20 14:39 | NUR ---
SCIENCE AND OPERATIONS OFFICER NOTE CALLED TO IQRA SALGADO WILDERNESS GUIDE NOTIFIED THAT BP ,ORDERED [id number] 10 MG IVP NOW , SHEELA CARRIED OUT
--- NOTE | 2018-05-20 15:15 | NUR ---
DIRECTOR SUPPLY NOTES DIALYSIS NURSE, MEGAN, WILL NOT DO DIALYSIS TODAY PT ALREADY HAD 2 HOURS OF DIALYSIS TODAY AT [facility].
--- NOTE | 2018-05-20 15:51 | NUR ---
TELE RNNNOTE PATIENT LOOK LETHARGIC CALLED [facility]RA SALGADO FORWARDER OPERATOR WITH ORDER ABG , RT AT BEDSIDE DOING ABG ,WILL F\U
[2018-05-20 16:00] VITALS: BP 150/75
[2018-05-20 16:01] LABS: ABG BASE EXCESS 3.4 mmol/L; ABG OXYGEN SATURATION 96.8 % (92.0-98.5); ABG PCO2 31.6 mmHg (35.0-45.0); ABG PH 7.528 (7.350-7.450); ABG PO2 93.3 mmHg (75.0-100.0); AaDO2 69.1 mmHg; MetHb 0.4 % (0.0-1.5); O2Hb 96.4 % (94.0-97.0); SITE, ABG Right Radial; VENT MODE, BG NASAL CANNULA
--- NOTE | 2018-05-20 16:40 | NUR ---
TELE RNNNOTE ABG RESULT REPORTED TO IQRA RIZZO NO NEW ORDER GIVEN AT THSI TIME WILL F\U ALL NEEDS ATTENDED
[2018-05-20] MEDS ORDERED: DEXTROSE 50%-WATER 50 ML DISP.SYRIN IV PRN (18:30)
--- NOTE | 2018-05-20 18:30 | NUR ---
BOX OFFICE ATTENDANT NOTES NOTIFIED MELI ESCALONA THAT PT HAS HX OF DM. ORDERED ACCUCHECK/SLIDING SCALE PER ORDER.
--- NOTE | 2018-05-20 18:51 | NUR ---
CABLE CUTTER AND SWAGER NOTE ALL NEEDS ATTENDED, ABLE TO FEED SELF , NO SOB NOTED , CALL LIGHT WITHIN REACH
[2018-05-20 20:00] VITALS: BP 173/80
--- NOTE | 2018-05-20 20:53 | NUR ---
RN NOTE BP OF 173/80 NOTED, NOTIFIED DR KIRA BROWNLEE, NEW ORDER IS GIVEN AND CARRIED OUT, WILL CONTINUE TO MONITOR PATIENT
[2018-05-20] MEDS: hydrALAZINE HCL IV 20 MG VIAL IV PRN (21:06)
[2018-05-20] MEDS: HEPARIN SODIUM, PORCINE 5000 UNITS/1 ML VIAL SQ SCH (21:07)
[2018-05-20] MEDS: BLOOD SUGAR DIAGNOSTIC 1 EACH STRIP IN SCH (21:14)
[2018-05-20] MEDS: INSULIN REGULAR, HUMAN 100 UNIT/ML 3 ML VIAL SQ PRN (21:15)
[2018-05-20] MEDS: ACETAMINOPHEN 325 MG TABLET PO PRN (22:19)
[2018-05-21] VITALS (9 sets, daily range): BP systolic 99–169; BP diastolic 61–90
[2018-05-21] MEDS: LACTULOSE 10 G/15 ML UDC (PYXIS) PO SCH ×4 (02:16→19:54)
[2018-05-21] MEDS ORDERED: VITAMINS A AND D 56.7 GM TUBE TP PRN (06:30)
--- NOTE | 2018-05-21 06:56 | NUR ---
RN NOTE PATIENT RESTED WELL AT NIGHT, NO DISTRESS NOTED, ALL SAFETY MEASURES TAKEN, WILL ENDORSE TO AM SHIFT TO CONTINUE CARE
[2018-05-21 07:35] LABS: BASOPHILS # (AUTO) 0.1 /CMM (0.0-0.2); EOSINOPHILS % (AUTO) 5.7 % (0.0-6.0); HEMATOCRIT 36 % (39-51); HEMOGLOBIN 11.9 g/dL (13.5-17.5); LYMPHOCYTES # (AUTO) 2.5 /CMM (0.8-4.8); LYMPHOCYTES % (AUTO) 40.8 % (20.0-44.0); MEAN CORPUSCULAR HEMOGLOBIN 29 PG (26.0-33.0); MEAN CORPUSCULAR HGB CONC 33 g/dl (31.0-36.0); MEAN CORPUSCULAR VOLUME 88 fL (80-96); MONOCYTES # (AUTO) 1.1 /CMM (0.1-1.30); MONOCYTES % (AUTO) 18.1 % (2.0-12.0); NEUTROPHILS # (AUTO) 2.1 /CMM (1.8-8.9); NEUTROPHILS % (AUTO) 34.4 % (43.0-81.0); PLATELET COUNT (AUTO) 198 /CMM (150-450); RED BLOOD CELL COUNT(AUTO) 4.07 MIL/uL (4.5-6.0); WHITE BLOOD COUNT (AUTO) 6.2 K/uL (4.3-11.0)
[2018-05-21 07:38] LABS: CALCIUM, SERUM 9.1 mg/dL (8.5-10.1); CREATININE 7.2 mg/dL (0.6-1.3); MAGNESIUM 2.5 mg/dL (1.8-2.4); PHOSPHORUS 5.2 mg/dL (2.5-4.9); POTASSIUM 3.8 mmol/L (3.5-5.1)
[2018-05-21] MEDS: INSULIN REGULAR, HUMAN 100 UNIT/ML 3 ML VIAL SQ PRN ×2 (07:46→12:09)
[2018-05-21] MEDS: BLOOD SUGAR DIAGNOSTIC 1 EACH STRIP IN SCH ×4 (08:01→21:19)
[2018-05-21] MEDS: HEPARIN SODIUM, PORCINE 5000 UNITS/1 ML VIAL SQ SCH ×2 (08:01→21:19)
--- NOTE | 2018-05-21 11:16 | NUR ---
WOUND CARE CONSULT WOUND CARE RECEIVED CONSULT FOR RT LOWER LEG WOUND. WOUND CARE WILL DEFER CONSULT AND TREATMENT PLAN TO DPM AT THIS TIME. PATIENT WITH ETELVINA AT 16. ALL PRESSURE ULCER PREVENTION MEASURES NOTED TO BE IN PLACE. WILL PRN.
[2018-05-21] MEDS: ACETAMINOPHEN 325 MG TABLET PO PRN ×2 (12:07→18:10)
[2018-05-21] MEDS: hydrALAZINE HCL IV 20 MG VIAL IV PRN (18:11)
--- NOTE | 2018-05-21 18:51 | NUR ---
RN NOTE: PATIENT REMAINS ALERT AWAKE ORIENTED X 4. ON ROOM AIR, NO BREATHING DIFFICULTY NOTED. DENIES CHEST PAIN/DISCOMFORT. C/O HEADACHE. TYLENOL GIVEN PRN, NOTED EFFECTIVE. HD DONE TODAY. 2L OUTPUT. SBP REMAINS >160. HYDRALAZINE IV GIVEN. EFFECTIVE. NOTED C/O CONSTIPATION, LACTOLOSE 20MG GIVEN PRN PER PATIENT REQUEST. NO FALL INJURY NOTED. ENCOURAGE TO USE CALL LIGHT FOR ASSISTANCE. CONTINUE WITH PLAN OF CARE.
--- NOTE | 2018-05-21 19:30 | NUR ---
RN NOTES RECEIVED PATIENT IN BED AWAKE. AO X 3, ABLE TO MAKE NEEDS KNOWN. NO ACUTE DISTRESS NOTED. DENIES ANY PAIN AT THIS TIME. NO SYMPTOMS OF HYPER/HYPOGLYCEMIA. IV SITE PATENT, INTACT; FLUSHED. SAFETY REMINDERS GIVEN. ON LOW BED WITH BILATERAL UPPER SIDE RAILS UP. CALL NOBLES WITHIN EASY REACH. WILL CONTINUE TO MONITOR.
[2018-05-22] MEDS: LACTULOSE 10 G/15 ML UDC (PYXIS) PO SCH ×5 (00:31→21:11)
[2018-05-22] MEDS: hydrALAZINE HCL IV 20 MG VIAL IV PRN ×3 (00:33→18:39)
--- NOTE | 2018-05-22 00:40 | NUR ---
RN NOTES PATIENT REFUSED MEDICINE. PATIENT HAD A VERY LARGE BM. EDUCATION GIVEN. WILL CONTINUE TO MONITOR.
[2018-05-22 04:00] VITALS: BP 148/71
--- NOTE | 2018-05-22 06:12 | NUR ---
RN NOTES PATIENT ASLEEP, EASILY AROUSABLE. RESPIRATIONS EVEN. NO SIGNS OF PAIN NOTED. DUE MEDS GIVEN WITH NO ASE NOTED. NEEDS ATTENDED. PATIENT KEPT CLEAN, DRY, AND COMFORTABLE. SAFETY PRECAUTIONS AND COMFORT MEASURES IN PLACE. WILL GIVE REPORT TO DAY SHIFT FOR CONTINUITY OF CARE.
[2018-05-22 06:21] LABS: BASOPHILS # (AUTO) 0.1 /CMM (0.0-0.2); EOSINOPHILS % (AUTO) 4.7 % (0.0-6.0); HEMATOCRIT 37 % (39-51); HEMOGLOBIN 11.8 g/dL (13.5-17.5); LYMPHOCYTES # (AUTO) 2.4 /CMM (0.8-4.8); MEAN CORPUSCULAR HEMOGLOBIN 29 PG (26.0-33.0); MEAN CORPUSCULAR HGB CONC 32 g/dl (31.0-36.0); MEAN CORPUSCULAR VOLUME 90 fL (80-96); MONOCYTES # (AUTO) 1.1 /CMM (0.1-1.30); MONOCYTES % (AUTO) 18.8 % (2.0-12.0); NEUTROPHILS # (AUTO) 2.1 /CMM (1.8-8.9); NEUTROPHILS % (AUTO) 35.5 % (43.0-81.0); PLATELET COUNT (AUTO) 202 /CMM (150-450); RDW COEFFICIENT OF VARIATION 19.7 (11.5-15.0); RED BLOOD CELL COUNT(AUTO) 4.11 MIL/uL (4.5-6.0); WHITE BLOOD COUNT (AUTO) 5.9 K/uL (4.3-11.0)
[2018-05-22 06:24] LABS: CALCIUM, SERUM 8.9 mg/dL (8.5-10.1); CREATININE 6.5 mg/dL (0.6-1.3); MAGNESIUM 2.6 mg/dL (1.8-2.4); PHOSPHORUS 4.4 mg/dL (2.5-4.9); POTASSIUM 3.9 mmol/L (3.5-5.1)
--- NOTE | 2018-05-22 07:30 | NUR ---
PT RECEIVED RESTING COMFORTABLY IN BED . NO S/S OR C/O PAIN OR DISTRESS NOTED. SIDE RAILS UP X2, CALL LIGHT LEFT WITHIN REACH. WILL CONTINUE PLAN OF CARE.
[2018-05-22] MEDS: HEPARIN SODIUM, PORCINE 5000 UNITS/1 ML VIAL SQ SCH ×2 (09:00→21:15)
[2018-05-22 09:01] LABS: EOSINOPHILS % (MANUAL) 5 % (0-4); LYMPHOCYTES % (MANUAL) 47 % (16-48); MONOCYTES % (MANUAL) 16 % (0-11.0); NEUTROPHILS % (MANUAL) 32 (42-76)
[2018-05-22] MEDS: BLOOD SUGAR DIAGNOSTIC 1 EACH STRIP IN SCH ×4 (09:01→21:12)
[2018-05-22] MEDS: INSULIN REGULAR, HUMAN 100 UNIT/ML 3 ML VIAL SQ PRN ×2 (09:06→17:37)
[2018-05-22] MEDS: ACETAMINOPHEN 325 MG TABLET PO PRN (09:12)
[2018-05-22 10:00] VITALS: BP 186/84
--- NOTE | 2018-05-22 12:00 | NUR ---
PT REFUSED MED INSULIN. PT TEACHING PERFORMED TO INFORM OF THE RISKS OF REFUSING BUT PATIENT CONTINUES TO REFUSE. WILL CONTINUE TO MONITOR.
[2018-05-22] MEDS: CARVEDILOL 12.5 MG TABLET PO SCH ×2 (15:09→21:14)
[2018-05-22] MEDS: SEVELAMER CARBONATE 800 MG TABLET PO SCH ×2 (15:09→17:31)
[2018-05-22] MEDS ORDERED: ERGOCALCIFEROL (VITAMIN D 2) 50,000 UNIT CAPSULE PO SCH (17:00)
[2018-05-22 18:00] VITALS: BP 178/89
--- NOTE | 2018-05-22 18:47 | NUR ---
CHANGE OF SHIFT REPORT PT RESTING COMFORTABLY IN BED. NO S/S OR C/O PAIN OR DISTRESS NOTED. SIDE RAILS UP X2, CALL LIGHT LEFT WITHIN REACH. PT KEPT CLEAN, DRY, AND COMFORTABLE. NO SIGNIFICANT CHANGES SINCE PREVIOUS SHIFT. WILL GIVE REPORT TO HOLLIS SALGADO.
--- NOTE | 2018-05-22 19:47 | NUR ---
RN MS INITIAL NOTES RECEIVED PATIENT IN BED AWAKE. AO X 3, ABLE TO MAKE NEEDS KNOWN. ON R/A O2 SAT 96%, NO ACUTE DISTRESS NOTED. DENIES ANY PAIN AT THIS TIME. IV SITE PATENT, INTACT; FLUSHED. SAFETY REMINDERS GIVEN. ON LOW BED WITH BILATERAL UPPER SIDE RAILS UP. CALL NOBLES WITHIN EASY REACH. WILL CONTINUE TO MONITOR.
[2018-05-22 20:00] VITALS: BP 144/68
[2018-05-22 22:00] VITALS: BP 144/68
--- NOTE | 2018-05-23 01:30 | NUR ---
LACTULOSE DOSE 15ML NOT GIVEN PT [id number], REFUSED NEXT DOSE, AOX3 RISK AND BENEFIT EXPLAINED.
[2018-05-23] MEDS: LACTULOSE 10 G/15 ML UDC (PYXIS) PO SCH ×2 (02:20→07:30)
--- NOTE | 2018-05-23 06:00 | NUR ---
RN MS CLOSING NOTES ENDORSED PATIENT IN BED AWAKE. AO X 3, ABLE TO MAKE NEEDS KNOWN. ON R/A O2 SAT 100%, NO ACUTE DISTRESS NOTED. DENIES ANY PAIN AT THIS TIME. IV SITE PATENT, INTACT; FLUSHED. LACTULOSE ORDER GIVEN, EFFECTIVE, W/BMX5, PT REFUSED 0130 DOSE BECAUSE OF FREQUENT BM, NEXT AMONIA LEVEL AT ORDERED 0730AM. PT FOR POSSIBLE D/C TODAY. SAFETY REMINDERS GIVEN. ON LOW BED WITH BILATERAL UPPER SIDE RAILS UP. CALL NOBLES WITHIN EASY REACH. WILL CONTINUE TO MONITOR.
[2018-05-23 06:14] VITALS: BP 163/82
--- NOTE | 2018-05-23 07:15 | NUR ---
RN MS OPENING NOTES REPORT RECEIVED FROM PM NURSE.PATIENT IN BED.ONGOING HD.PATIENT SLEEPING.EASILY AROUSABLE.DONT WANT TO TAKE MEDICATIONS NOW.WANT TO TAKE MEDS AFTER HD. AXO X 4. ABLE TO MAKE NEEDS KNOWN. ON R/A . NO ACUTE DISTRESS NOTED. DENIES ANY PAIN AT THIS TIME. IV SITE PATENT, INTACT; FLUSHED. PT REQUESTING D/C HOME TODAY. ON LOW BED WITH BILATERAL UPPER SIDE RAILS UP. CALL NOBLES WITHIN EASY REACH.BED IS IN LOCKED POSITION. WILL CONTINUE TO MONITOR.
[2018-05-23] MEDS ORDERED: PANTOPRAZOLE 40 MG TABLET.DR PO SCH (07:30)
[2018-05-23] MEDS: BLOOD SUGAR DIAGNOSTIC 1 EACH STRIP IN SCH ×2 (07:49→12:00)
[2018-05-23 08:00] VITALS: BP 143/62
[2018-05-23] MEDS ORDERED: ATORVASTATIN 40 MG TABLET PO SCH (09:00)
[2018-05-23] MEDS ORDERED: AMLODIPINE BESYLATE 10 MG TABLET PO SCH (09:00)
[2018-05-23] MEDS ORDERED: hydrALAZINE HCL 10 MG TABLET PO SCH ×2 (09:00)
[2018-05-23] MEDS ORDERED: LISINOPRIL (20MG) 20 MG TABLET PO SCH (09:00)
[2018-05-23] MEDS ORDERED: VIT B CMPLX 3/FA/VIT C/BIOTIN 1 TAB TABLET PO SCH (09:00)
[2018-05-23] MEDS: SEVELAMER CARBONATE 800 MG TABLET PO SCH (09:07)
[2018-05-23] MEDS: CARVEDILOL 12.5 MG TABLET PO SCH (09:08)
[2018-05-23] MEDS: HEPARIN SODIUM, PORCINE 5000 UNITS/1 ML VIAL SQ SCH (09:16)
--- NOTE | 2018-05-23 11:00 | NUR ---
RN NOTES MELI ESCALONA MADE AWARE ABOUT PATIENT REQUEST TO D/C HOME BEFORE 1300.
--- NOTE | 2018-05-23 11:00 | NUR ---
RN NOTE DIALYSIS DONE,2L FLUID TAKEN OUT
[2018-05-23] MEDS ORDERED: LACT10SO PO (11:23)
[2018-05-23] MEDS: hydrALAZINE HCL IV 20 MG VIAL IV PRN (11:39)
[2018-05-23 12:00] VITALS: BP 150/76
--- NOTE | 2018-05-23 12:30 | NUR ---
CUTTER GAS NOTE SEEN BY MELI ESCALONA.PATIENT D/C HOME IN STABLE CONDITION.AXOX4.NO SOB NO DISTRESS NOTED AT THIS TIME.DENIED CHEST PAIN.DISCHARGE INSTRUCTIONS GIVEN TO THE PATIENT.SIGNED ALL THE PAPER WORK.EXIT CARE GIVEN.VERBALIZE UNDERSTANDING.PRESCRIPTION GIVEN.TOOK ALL THE BELONGINGS.LEFT WITH BROTHER HARSHAL .OFFERED HELP FOR DISCHARGE ,HE TOLD THAT HE HAS HIS OWN WHEEL CHAIR.NO NEED ANY HELP.BROTHER IS HELPING.DISCHARGE PAPER WORK GIVEN TO THE PATIENT.REFUSED INSULIN.RECHECKED BP AFTER PRN MEDS,136/76.
== END 2018-05-23 12:30 | disposition home or self-care (01) | DRG 279 ==
LOC: ER 08:15 → TELE1 10:47 → MEDSG1 05-21 11:02
PROVIDERS: ADMIT Nurse Practitioner Acute Care; ATTEND Nurse Practitioner Acute Care
PROC: 5A1D70Z Performance of Urinary Filtration, Intermittent, Less than 6 Hours Per Day (ICD-10-PCS; principal; 2018-05-21)
PROC: 5A1D70Z Performance of Urinary Filtration, Intermittent, Less than 6 Hours Per Day (ICD-10-PCS; 2018-05-23)
DX: K72.90 Hepatic failure, unspecified without coma (principal); I13.2 Hypertensive heart and chronic kidney disease with heart failure and with stage 5 chronic kidney disease, or end stage renal disease; E72.20 Disorder of urea cycle metabolism, unspecified; E11.22 Type 2 diabetes mellitus with diabetic chronic kidney disease; E11.42 Type 2 diabetes mellitus with diabetic polyneuropathy; N18.6 End stage renal disease; K74.60 Unspecified cirrhosis of liver; K21.9 Gastro-esophageal reflux disease without esophagitis; Z99.2 Dependence on renal dialysis; I16.9 Hypertensive crisis, unspecified; Z89.519 Acquired absence of unspecified leg below knee; Z90.81 Acquired absence of spleen; E03.9 Hypothyroidism, unspecified; D63.1 Anemia in chronic kidney disease; M89.9 Disorder of bone, unspecified; I50.32 Chronic diastolic (congestive) heart failure; Z89.512 Acquired absence of left leg below knee
CPT/HCPCS: 36415; 36600; 70450-TC; 71045-TC; 80048-TC; 80061-TC; 80076-TC; 82140-TC; 82803-TC; 82962-TC; 83735-TC; 84100-TC; 84439-TC; 84443-TC; 84484-TC; 85025-TC; 85730-TC; 87081-TC; 90935-TC; 97110-TC; 97116-TC; 97530-TC; A4606; G0480; J0360; J1644; J1815; J2405; Z7610

== ENCOUNTER 2018-05-27 04:05 | Inpatient (IN) | payer OTHER ==
[~2018-05-27] VITALS: Ht 170.2 cm; Wt 80.7 kg
[~2018-05-27 04:05] MED LIST changes: +LACT10SO PO
--- NOTE | 2018-05-27 04:07 | NUR ---
TO ER BED 7 C/C OF ABNORMAL LABS. "I CAN'T REMEMBER THINGS." NO S/S SOB. SKIN PINK, WARM, DRY. AMBULATES AND TRANSFERS VIA WHEELCHAIR AND CRUTCH. HYPERTENSIVE SBP 209. HX OF DIALYSIS. ALL OTHER VSS. NAD. STABLE CONDITION. WILL CONTINUE TO MONITOR.
[2018-05-27 04:34] LABS: HEMATOCRIT 41 % (39-51); HEMOGLOBIN 13.3 g/dL (13.5-17.5); MEAN CORPUSCULAR HGB CONC 33 g/dl (31.0-36.0); MEAN CORPUSCULAR VOLUME 87 fL (80-96); PLATELET COUNT (AUTO) 185 /CMM (150-450); RDW COEFFICIENT OF VARIATION 17.3 (11.5-15.0); RED BLOOD CELL COUNT(AUTO) 4.68 MIL/uL (4.5-6.0)
[2018-05-27 04:51] LABS: CALCIUM, SERUM 9.2 mg/dL (8.5-10.1); POTASSIUM 4.9 mmol/L (3.5-5.1)
[2018-05-27 04:56] LABS: NEUTROPHILS % (MANUAL) 52 (42-76)
[2018-05-27 04:57] LABS: ALBUMIN 3.1 g/dL (3.4-5.0); BILIRUBIN,DIRECT 0.3 mg/dL (0.0-0.2); BILIRUBIN,TOTAL 0.8 mg/dL (0.2-1.0); EOSINOPHILS % (MANUAL) 4 % (0-4); TOTAL PROTEIN, SERUM 8.7 g/dL (6.4-8.2)
[2018-05-27 04:58] LABS: LYMPHOCYTES % (MANUAL) 34 % (16-48); MONOCYTES % (MANUAL) 10 % (0-11.0)
[2018-05-27 05:00] LABS: CREATININE 10.9 mg/dL (0.6-1.3)
[2018-05-27] MEDS ORDERED: LACTULOSE 10 G/15 ML UDC (PYXIS) ONE (05:15)
[2018-05-27] MEDS ORDERED: LACTULOSE 10 G/15 ML UDC (PYXIS) PO ONE (05:30)
--- NOTE | 2018-05-27 06:00 | NUR ---
RN OPENING NOTES PT ARRIVED ON TO THE UNIT VIA WHEELCHAIR, NO REPORT GIVEN PRIOR TO PATIENT ARRIVING TO THE UNIT. UPON ARRIVAL PT NOTED TO HAVE FOUL ODER. VITAL SIGNS: BP:210/110 HR:81 O2:97 R:18. PT HAS LEFT UPPER ARM AV SHUNT, RIGHT HAND #18 IV. PT HAS MULTIPLE BRUISES, PT HAS LEFT BKA. 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 PER PT WAS IN THE HOSPITAL X3 DAYS AGO. THE PATIENT'S SPEECH IS SLOW AND PATIENT IS CONFUSED. UNABLE TO STATED WHERE HE IS AND DATE OF . PATIENT'S SHIRT AND SHORTS HAVE BEEN SOILED WITH FECES AND PATIENT REQUESTED FOR THEM TO BE THROWN OUT. ALL PATIENT BELONGINGS ACCOUNTED FOR AND DOCUMENTED. ALL WOUNDS DOCUMENTED AND PICTURES ARE IN THE PATIENTS CHART. SAFETY PRECAUTIONS IN PLACE, BED IN LOWEST LOCKED, POSITION, X2 SIDE RAILS UP, AND CALL LIGHT WITHIN REACH.
--- NOTE | 2018-05-27 06:04 | NUR ---
REPORT GIVEN TO KEITH DOMINGUEZ FOR BO.
--- NOTE | 2018-05-27 06:08 | NUR ---
PT TRANSPORTED TO M/S UNIT STABLE CONDITION. NAD.
--- NOTE | 2018-05-27 06:20 | NUR ---
RN NOTES PER HOV IN ER, ER MD AWARE OF INCREASED BLOOD PRESSURE PER MD NO NEW ORDERS. PAGED DR MALONE TO INFORM OF ADMISSION AND INCREASED BLOOD PRESSURE.
--- NOTE | 2018-05-27 06:55 | NUR ---
RN NOTES DR MALONE RETURNED PHONE CALL. PER DR MALONE PATIENT SHOULD BE TRANSFERRED TO TELE UNIT TO ADDRESS INCREASED BLOOD PRESSURE.
[2018-05-27] MEDS ORDERED: HYDROCODONE/APAP 5/325MG 1 EACH TABLET PO PRN (07:00)
--- NOTE | 2018-05-27 07:00 | NUR ---
RN NOTES CALLED CHARGE NURSE LAURYN ON , PATIENT WILL BE TRANSFERRED TO [facility].
--- NOTE | 2018-05-27 07:15 | NUR ---
RN NOTES ATTEMPTED TO GIVE REPORT, WAS TOLD ACCEPTING NURSE IN REPORT ALREADY. WILL GATHER ALL PATIENT BELONGINGS AND TRANSFER PATIENT.
--- NOTE | 2018-05-27 07:25 | NUR ---
RN NOTES PT TRANSFERRED VIA BED TO [facility]. REPORT GIVEN AT BEDSIDE TO NAOMI CARMEN FOR CONTINUITY OF CARE.
[2018-05-27] MEDS ORDERED: ONDANSETRON HCL/PF 4 MG/2 ML VIAL IVP PRN (07:30)
[2018-05-27] MEDS ORDERED: PANTOPRAZOLE 40 MG TABLET.DR PO SCH (07:30)
[2018-05-27] MEDS ORDERED: ALBUTEROL FS 2.5 MG/3 ML VIAL.NEB NEB PRN (07:30)
--- NOTE | 2018-05-27 07:35 | NUR ---
MS RN RECEIVED A NEW ADMISSION, A 48 YEAR OLD PATIENT,AWAKE,ALERT,ORIENTED X2,NOT IN ANY FORM OF DISTRESS, RESPIRATIONS EVEN AND UNLABORED,NO SOB NOTED,LUNGS ARE HAVE RONCHIS,ABDOMEN SOFT,POSITIVE BOWEL SOUNDS, DENIES PAIN AT THIS TIME, WILL MONITOR PATIENT'S CONDITION.WILL MONITOR PATIENT'S CONDITION.
[2018-05-27 08:00] VITALS: BP 160/86
--- NOTE | 2018-05-27 09:00 | NUR ---
MS SALGADO BREAKFAST SERVED,DUE MEDS GIVEN,TOLERATED WELL.
[2018-05-27] MEDS: RIFAXIMIN 550 MG TABLET PO SCH ×2 (09:08→18:16)
[2018-05-27] MEDS: VIT B CMPLX 3/FA/VIT C/BIOTIN 1 TAB TABLET PO SCH (09:08)
[2018-05-27] MEDS: LACTULOSE 10 G/15 ML UDC (PYXIS) PO SCH ×3 (09:08→18:16)
[2018-05-27] MEDS: CARVEDILOL 12.5 MG TABLET PO SCH ×2 (09:09→21:11)
[2018-05-27] MEDS: AMLODIPINE BESYLATE 10 MG TABLET PO SCH (09:09)
[2018-05-27] MEDS: LISINOPRIL (20MG) 20 MG TABLET PO SCH (09:10)
[2018-05-27] MEDS: SEVELAMER CARBONATE 800 MG TABLET PO SCH ×3 (09:15→18:16)
[2018-05-27] MEDS: PANTOPRAZOLE 40 MG TABLET.DR PO SCH (09:15)
[2018-05-27] MEDS: hydrALAZINE HCL 50 MG TABLET PO SCH ×3 (09:15→23:35)
[2018-05-27 16:00] VITALS: BP 144/78
--- NOTE | 2018-05-27 19:00 | NUR ---
ms maggie hd done w/1.5 liters taken.tolerated well.
--- NOTE | 2018-05-27 19:30 | NUR ---
RN NOTES RECEIVED PT AWAKE, ALERT AND ORIENTED X3, PT MORE ALERT AND VERBAL. NO SIGNS OF DISTRESS AND DISCOMFORT NOTED AT THIS TIME. HOB ELEVATED, ON ROOM AIR AND TOLERATED WELL. TELE MONITOR READS SINUS RHYTHM WITH HEART RATE AT68. IV ACCESS ON RIGHT INDEX FINGER PATENT AND INTACT. PLAN OF CARE DISCUSSED WITH THE PT AND VERBALIZED UNDERSTANDING. KEPT CLEAN AND DRY. SAFETY MEASURES AND FALL PRECAUTION OBSERVED. WILL CONTINUE TO MONITOR PT.
[2018-05-27 20:00] VITALS: BP 148/78
[2018-05-27 22:00] VITALS: BP 168/76
[2018-05-28 00:04] VITALS: BP 142/74
[2018-05-28 04:00] VITALS: BP 128/67
[2018-05-28] MEDS: hydrALAZINE HCL 50 MG TABLET PO SCH ×2 (06:16→14:13)
--- NOTE | 2018-05-28 06:35 | NUR ---
RN NOTES PT SLEPT WELL OVERNIGHT, VITAL SIGNS STABLE, AFEBRILE. PT IS MORE ALERT AND VERBAL. NO SIGNS OF DISTRESS AND DISCOMFORT NOTED. DENIES PAIN AND DISCOMFORT. TELE MONITOR READS SINUS RHYTHM WITH HEART RATE AT 66. SAFETY MEASURES AND FALL PRECAUTION OBSERVED. ALL NEEDS MET. KEPT CLEAN AND DRY. WILL ENDORSE TO MORNING RN FOR CONTINUITY OF CARE.
[2018-05-28 06:42] LABS: EOSINOPHILS % (AUTO) 4.3 % (0.0-6.0); HEMATOCRIT 37 % (39-51); LYMPHOCYTES # (AUTO) 1.7 /CMM (0.8-4.8); LYMPHOCYTES % (AUTO) 37.7 % (20.0-44.0); MEAN CORPUSCULAR HGB CONC 32 g/dl (31.0-36.0); MEAN CORPUSCULAR VOLUME 89 fL (80-96); MONOCYTES # (AUTO) 0.8 /CMM (0.1-1.30); MONOCYTES % (AUTO) 16.9 % (2.0-12.0); NEUTROPHILS # (AUTO) 1.9 /CMM (1.8-8.9); NEUTROPHILS % (AUTO) 41.1 % (43.0-81.0); PLATELET COUNT (AUTO) 153 /CMM (150-450); RDW COEFFICIENT OF VARIATION 19.3 (11.5-15.0); RED BLOOD CELL COUNT(AUTO) 4.15 MIL/uL (4.5-6.0); WHITE BLOOD COUNT (AUTO) 4.6 K/uL (4.3-11.0)
[2018-05-28 06:53] LABS: TROPONIN I 0.037 ng/mL (0.00-0.056)
[2018-05-28 07:02] LABS: ALBUMIN 2.5 g/dL (3.4-5.0); BILIRUBIN,TOTAL 0.8 mg/dL (0.2-1.0); CALCIUM, SERUM 8.4 mg/dL (8.5-10.1); MAGNESIUM 2.5 mg/dL (1.8-2.4); PHOSPHORUS 5.4 mg/dL (2.5-4.9); POTASSIUM 4.4 mmol/L (3.5-5.1); TOTAL PROTEIN, SERUM 7.2 g/dL (6.4-8.2)
[2018-05-28 07:03] LABS: CREATININE 9.2 mg/dL (0.6-1.3)
[2018-05-28 07:04] LABS: THYROID STIMULATING HORMONE 5.103 uIU/mL (0.358-3.74)
[2018-05-28 08:00] VITALS: BP 145/68
--- NOTE | 2018-05-28 08:05 | NUR ---
RN OPENING NOTES RECEIVED PATIENT AWAKE ALERT AND VERBALLY RESPONSIVE, DANISH SPEAKING, ABLE TO MAKE NEEDS KNOWN. RESPIRATIONS EVEN AND UNLABORED, DENIES ANY PAIN OR DISCOMFORT AT THIS TIME. IV ACCESS TO RIGHT INDEX FINGER PATENT AND INTACT, NO REDNESS OR INFILTRATION NOTED. REMAINS AFEBRILE, SAFETY MEASURES IN PLACE, KEPT CLEAN DRY AND COMFORTABLE, CALL LIGHT WITHIN EASY REACH, WILL CONTINUE TO MONITOR
[2018-05-28] MEDS: AMLODIPINE BESYLATE 10 MG TABLET PO SCH (08:34)
[2018-05-28] MEDS: RIFAXIMIN 550 MG TABLET PO SCH (08:34)
[2018-05-28] MEDS: PANTOPRAZOLE 40 MG TABLET.DR PO SCH (08:34)
[2018-05-28] MEDS: SEVELAMER CARBONATE 800 MG TABLET PO SCH ×2 (08:34→12:48)
[2018-05-28] MEDS: LACTULOSE 10 G/15 ML UDC (PYXIS) PO SCH ×2 (08:34→12:48)
[2018-05-28] MEDS: LISINOPRIL (20MG) 20 MG TABLET PO SCH (08:35)
[2018-05-28] MEDS: CARVEDILOL 12.5 MG TABLET PO SCH (09:43)
[2018-05-28] MEDS: VIT B CMPLX 3/FA/VIT C/BIOTIN 1 TAB TABLET PO SCH (09:47)
[2018-05-28] MEDS ORDERED: RIFA550T PO (11:41)
[2018-05-28] MEDS ORDERED: LACT10SO6 PO (11:41)
[2018-05-28 14:13] VITALS: BP 141/72
--- NOTE | 2018-05-28 17:11 | NUR ---
RN CLOSING NOTES PATIENT AWAKE ALERT AND VERBALLY RESPONSIVE, DANISH SPEAKING, ABLE TO MAKE NEEDS KNOWN. RESPIRATIONS EVEN AND UNLABORED, DENIES ANY PAIN OR DISCOMFORT AT THIS TIME. IV ACCESS TO RIGHT INDEX FINGER AND ID BAND REMOVED WITH NO ASE NOTED. REMAINS AFEBRILE, PT WITH DISCHARGE ORDERS TO THE [facility], REPORT GIVEN TO DANNY AND DISCHARGE INSTRUCTIONS EXPLAINED TO NURSE AND PT WITH NOTED VERBAL UNDERSTANDING. ALL BELONGINGS ACCOUNTED FOR. PT REFUSED TAKING PICTURES OF SKIN NURSING EDUCATION PROVIDED SKIN WITH NO CHANGES FROM PICTURES ON 05/27/18, REPORT GIVEN TO EMT FOR CONTINUITY OF CARE
[2018-05-29] MEDS ORDERED: ERGOCALCIFEROL (VITAMIN D 2) 50,000 UNIT CAPSULE PO SCH (07:00)
== END 2018-05-28 17:15 | DRG 279 ==
LOC: ER 04:08 → MEDSG2 05:48 → MED 07:40 → TELE 14:57 → MED 05-28 15:21
PROVIDERS: ADMIT Internal Medicine; ATTEND Internal Medicine
PROC: 5A1D70Z Performance of Urinary Filtration, Intermittent, Less than 6 Hours Per Day (ICD-10-PCS; principal; 2018-05-27)
DX: K72.00 Acute and subacute hepatic failure without coma (principal); E11.22 Type 2 diabetes mellitus with diabetic chronic kidney disease; I12.0 Hypertensive chronic kidney disease with stage 5 chronic kidney disease or end stage renal disease; N18.6 End stage renal disease; K76.6 Portal hypertension; K72.10 Chronic hepatic failure without coma; Z99.2 Dependence on renal dialysis; E55.9 Vitamin D deficiency, unspecified; N25.81 Secondary hyperparathyroidism of renal origin; M19.90 Unspecified osteoarthritis, unspecified site; I16.0 Hypertensive urgency; K21.9 Gastro-esophageal reflux disease without esophagitis; E03.9 Hypothyroidism, unspecified; D63.8 Anemia in other chronic diseases classified elsewhere; K74.60 Unspecified cirrhosis of liver; Z89.519 Acquired absence of unspecified leg below knee; Q78.9 Osteochondrodysplasia, unspecified
CPT/HCPCS: 36415; 71045-TC; 80048-TC; 80053-TC; 80061-TC; 80076-TC; 82140-TC; 83540-TC; 83735-TC; 84100-TC; 84443-TC; 84484-TC; 85025-TC; 87081-TC; 90935-TC; A4606; Z7610

== ENCOUNTER 2018-09-16 06:51 | Inpatient (IN) | payer OTHER ==
[~2018-09-16] VITALS: Ht 170.2 cm; Wt 77.1 kg
[~2018-09-16 06:51] MED LIST changes: -AMLO10TA6 PO; +AMLO10TA7 PO; -ATOR40TA PO; +ATOR80TA PO; +CLOP75TA15 PO; +DIPH1TAB PO; -HYDR-4075 PO; +HYDR-4384 PO; -HYDR-552 PO; +IRON100V6 IV; -LACT10SO PO; +LACT10SO6 PO; +PARI1CAP PO; +RIFA550T PO
--- NOTE | 2018-09-16 07:05 | NUR ---
PT MARIANA FROM DIALYSIS CLINIC. PER RA, "PT LOOKED WEAK AND SLUGGISH BEFORE DIALYSIS AND RECEIEVED AN HOUR AND A HALF OF DIALYSIS." PT IS AAOX4. APPEARS UNCOMFORTABLE. PT STATES "I FEEL VERY WEAK AND FEEL TINGLING SENSATION IN BOTH OF MY ARMS". PT PLACED IN GOWN AND ON CONTINUOUS DIPLOMA PHARMACY TECHNICIAN, WILL CONTINUE TO MONITOR.
--- NOTE | 2018-09-16 07:07 | NUR ---
MD AT BEDSIDE FOR EVALUATION
--- NOTE | 2018-09-16 07:20 | NUR ---
IV INITIATED RIGHT AC 20G. LABS DRAWN FROM SITE. SUBSORTER AT BEDSIDE FOR COLLECTION. IV INTACT AND PATENT, PLACED ON SALINE LOCK.
[2018-09-16 07:30] LABS: BASOPHILS # (AUTO) 0.1 /CMM (0.0-0.2); BASOPHILS % (AUTO) 1.1 % (0.0-2.0); EOSINOPHILS % (AUTO) 3.7 % (0.0-6.0); HEMATOCRIT 36 % (39-51); HEMOGLOBIN 12.1 g/dL (13.5-17.5); LYMPHOCYTES # (AUTO) 1.8 /CMM (0.8-4.8); LYMPHOCYTES % (AUTO) 27.3 % (20.0-44.0); MEAN CORPUSCULAR HGB CONC 34 g/dl (31.0-36.0); MEAN CORPUSCULAR VOLUME 93 fL (80-96); MONOCYTES # (AUTO) 0.9 /CMM (0.1-1.30); MONOCYTES % (AUTO) 12.8 % (2.0-12.0); NEUTROPHILS # (AUTO) 3.7 /CMM (1.8-8.9); NEUTROPHILS % (AUTO) 55.1 % (43.0-81.0); PLATELET COUNT (AUTO) 160 /CMM (150-450); RED BLOOD CELL COUNT(AUTO) 3.85 MIL/uL (4.5-6.0); WHITE BLOOD COUNT (AUTO) 6.6 K/uL (4.3-11.0)
[2018-09-16] MEDS ORDERED: IV NS 0.9% 1,000 ML BAG IV ONE (07:30)
--- NOTE | 2018-09-16 07:32 | NUR ---
GAVE REPORT TO CELSO SALGADO FOR BO
[2018-09-16 07:38] LABS: CALCIUM, SERUM 9.3 mg/dL (8.5-10.1); CARBON DIOXIDE 25 mmol/L (21-32); CHLORIDE 100 mmol/L (98-107); CREATININE 7.1 mg/dL (0.6-1.3); GLUCOSE 99 mg/dL (74-106); POTASSIUM 4.1 mmol/L (3.5-5.1); SODIUM SERUM 137 mmol/L (136-145); UREA NITROGEN, BLOOD 37 mg/dL (7-18)
[2018-09-16 07:39] LABS: SERUM AMMONIA 98 umol/L (11-32)
[2018-09-16 07:44] LABS: ALANINE AMINOTRANSFERASE 23 U/L (12-78); ALBUMIN 3.6 g/dL (3.4-5.0); ALCOHOL, BLOOD < 3 mg/dL (0-0); ALKALINE PHOSPHATASE 203 U/L (46-116); ASPARTATE AMINOTRANSFERASE 29 U/L (15-37); BILIRUBIN,DIRECT 0.3 mg/dL (0.0-0.2); BILIRUBIN,TOTAL 1.1 mg/dL (0.2-1.0); TOTAL PROTEIN, SERUM 7.8 g/dL (6.4-8.2)
--- NOTE | 2018-09-16 07:54 | NUR ---
PATIENT CAME BACK FROM CT.
--- NOTE | 2018-09-16 07:55 | NUR ---
PT NOT ABLE TO URINATE AND PROVIDE SAMPLE. MADE AWARE
[2018-09-16] MEDS ORDERED: LABETALOL 20 MG/4 ML VIAL IV ONE ×2 (08:00→09:30)
[2018-09-16] MEDS ORDERED: LABETALOL 20 MG/4 ML VIAL ONE ×2 (08:03→09:02)
--- NOTE | 2018-09-16 08:11 | NUR ---
CALLED [facility] [phone] ITS PASTORA
[2018-09-16] MEDS ORDERED: LACTULOSE 10 G/15 ML UDC (PYXIS) ONE (08:24)
[2018-09-16] MEDS ORDERED: LACTULOSE 10 G/15 ML UDC (PYXIS) PO ONE (08:30)
--- NOTE | 2018-09-16 08:31 | NUR ---
CALLED [facility] SECOND TIME [phone] ITS PASTORA
--- NOTE | 2018-09-16 08:48 | NUR ---
BP 208/107, MADE AWARE
[2018-09-16] MEDS ORDERED: ASPI-1169 PO (08:51)
[2018-09-16] MEDS ORDERED: TERA2CAP4 PO (08:51)
[2018-09-16] MEDS ORDERED: DOCU100C36 PO (08:51)
[2018-09-16] MEDS ORDERED: PARI5VIA IV (08:51)
--- NOTE | 2018-09-16 09:01 | NUR ---
BP 204/99, MADE MD AWARE, RECEIVED VERBAL ORDER OF LABETALOL 40MG IV
--- NOTE | 2018-09-16 09:22 | NUR ---
CALLED [facility] ITS EMILYAHMANDIAN
--- NOTE | 2018-09-16 09:25 | NUR ---
[facility] PAGED ITS ANDONIAN
--- NOTE | 2018-09-16 10:00 | NUR ---
CALLED [facility] ANDONIAN X 2
--- NOTE | 2018-09-16 10:18 | NUR ---
CALLED FOR BED TELE
--- NOTE | 2018-09-16 10:45 | NUR ---
GOT BED 114-2
--- NOTE | 2018-09-16 10:57 | NUR ---
REPORT GIVEN TO LINDSEY SALGADO OF TELEMETRY UNIT
[2018-09-16 11:26] VITALS: BP 179/96
[2018-09-16] MEDS ORDERED: DIPHENOXYLATE HCL/ATROP SULF 1 UDTAB TABLET PO PRN (11:30)
[2018-09-16] MEDS ORDERED: Z GUARD REMEDY 2 OZ OINT TP PRN (11:30)
[2018-09-16] MEDS ORDERED: ONDANSETRON HCL/PF 4 MG/2 ML VIAL IVP PRN (11:30)
[2018-09-16] MEDS ORDERED: MAG HYDROX/AL HYDROX/SIMETH 30 ML UDC PO PRN (11:30)
[2018-09-16] MEDS ORDERED: HYDROCODONE/APAP 5/325MG 1 EACH TABLET PO PRN (11:30)
[2018-09-16] MEDS ORDERED: ZOLPIDEM TARTRATE 5 MG TABLET PO PRN (11:30)
[2018-09-16] MEDS ORDERED: MAGNESIUM HYDROXIDE 30 ML UDC PO PRN (11:30)
[2018-09-16] MEDS ORDERED: ACETAMINOPHEN 325 MG TABLET PO PRN (11:30)
--- NOTE | 2018-09-16 11:41 | NUR ---
LUCIA RN NOTE RECEIVED PT FROM ER WITH A DX ALTERED MENTAL STATUS AND WEAKNESS. UNDER CARE DR. GARCIA. PT MORE AWAKE AND ALERT NOW ABLE TO ANSWER SIMPLE QUESTION. PT ON ROOM AIR WITH 100% O2 SAT. PLACES ON TELE MONITOR. SR HR 76. RIGHT AC HEPLOCK INTACT. NO SIGNS OF INFECTION. LEFT UPPER ARM AV SHUNT WITH BLEEDING NOTED. WILL REINFORCE DRESSING. HOSPITAL ORIENTATION DONE. VS TAKEN. BELONGINGS WILL BE CHECKED. PLAN OF CARE DISCUSSED WITH THE PT. WILL CALL DR. GARCIA FOR ADMISSION ORDERS. BED IN LOWEST POSITION. WILL CONTINUE TO MONITOR CLOSELY.
[2018-09-16 12:00] VITALS: BP 179/96
[2018-09-16] MEDS: SEVELAMER CARBONATE 800 MG TABLET PO SCH ×2 (12:31→17:47)
[2018-09-16] MEDS: CARVEDILOL 12.5 MG TABLET PO SCH ×2 (12:33→20:35)
--- NOTE | 2018-09-16 15:22 | NUR ---
CERNER ANALYST NOTE PER DR JOSE WORLEY TO STARRT LACTULOSE, WILL F\U
[2018-09-16 16:00] VITALS: BP_SYST 160; BP_SYST 180; BP_DIAS 63
[2018-09-16] MEDS: DOCUSATE SODIUM 100 MG CAPSULE PO SCH (16:04)
--- NOTE | 2018-09-16 17:28 | NUR ---
IRONWORKER APPRENTICE SHOP NOTE STARTED ON HD ORDERED, WILL F\U
--- NOTE | 2018-09-16 17:50 | NUR ---
OCEAN EXPORT COORDINATOR NOTE PT ON HD. HOLD PO MEDS AT THIS TIME.
--- NOTE | 2018-09-16 18:22 | NUR ---
CERTIFIED MIDWIFE NOTE PT ON HEMODIALYSIS. NOT IN DISTRESS. MADE BOWEL MOVEMENT. KEPT CLEAN AND DRY.
--- NOTE | 2018-09-16 19:10 | NUR ---
JUKE BOX MECHANIC NOTE PT BP 179/96. SPOKE WITH DR. GARCIA ABOUT TO GIVE BP PRN. STATED PT DOES NOT NEED IT RIGHT NOW. COREG AT 2100.
[2018-09-16] MEDS ORDERED: DEXTROSE 50%-WATER 50 ML DISP.SYRIN IV PRN (19:30)
--- NOTE | 2018-09-16 19:30 | NUR ---
RN NOTE S/P HD DIALYSIS, TOLERATED WELL, 2500ML OUT
[2018-09-16 20:00] VITALS: BP 171/89
[2018-09-16] MEDS: LACTULOSE 10 G/15 ML UDC (PYXIS) PO SCH (20:35)
[2018-09-16 21:00] VITALS: BP 160/59
[2018-09-16] MEDS: ATORVASTATIN 40 MG TABLET PO SCH (21:12)
[2018-09-16] MEDS: TERAZOSIN HCL 1 MG CAPSULE PO SCH (21:12)
[2018-09-16] MEDS: BLOOD SUGAR DIAGNOSTIC 1 EACH STRIP IN SCH (21:21)
[2018-09-16] MEDS: INSULIN REGULAR, HUMAN 100 UNIT/ML 3 ML VIAL SQ PRN (21:22)
--- NOTE | 2018-09-16 22:25 | NUR ---
RN NOTE PATIENT IS ALERT/AWAKE, ORIENTED X 3, DX AMS, STATED THAT HE NEEDS HIGHER DOSE OF LACTULOSE TO REMOVE AMMONIA LEVEL, NOTIFIED ALBINA GRAY, PER ALBINA GRAY CONTINUE THE SAME TREATMENT, NO NEW ORDERS AT THIS TIME, EXPLAINED TO THE PATIENT, CHARGE NURSE ADIEL IS AWARE
[2018-09-17] VITALS: BP 153/80
--- NOTE | 2018-09-17 01:51 | NUR ---
RN NOTE PATIENT HAD LARGE BOWEL MOVEMENTS X 2, NORMAL CONSISTENCY
[2018-09-17 04:00] VITALS: BP 149/74
--- NOTE | 2018-09-17 07:05 | NUR ---
RN NOTE PATIENT HAD 5 LARGE BOWEL MOVEMENTS DURING MY SHIFT, AWAKE, ALERT/ORIENTED X 3, WILL ENDORSE TO AM SHIFT TO CONTINUE CARE
[2018-09-17 07:48] LABS: BASOPHILS # (AUTO) 0.1 /CMM (0.0-0.2); BASOPHILS % (AUTO) 1.1 % (0.0-2.0); EOSINOPHILS % (AUTO) 5.1 % (0.0-6.0); HEMATOCRIT 33 % (39-51); HEMOGLOBIN 11.1 g/dL (13.5-17.5); LYMPHOCYTES # (AUTO) 2.3 /CMM (0.8-4.8); LYMPHOCYTES % (AUTO) 38.5 % (20.0-44.0); MEAN CORPUSCULAR HGB CONC 34 g/dl (31.0-36.0); MEAN CORPUSCULAR VOLUME 94 fL (80-96); MONOCYTES % (AUTO) 17.2 % (2.0-12.0); NEUTROPHILS # (AUTO) 2.2 /CMM (1.8-8.9); NEUTROPHILS % (AUTO) 38.1 % (43.0-81.0); PLATELET COUNT (AUTO) 130 /CMM (150-450); RED BLOOD CELL COUNT(AUTO) 3.47 MIL/uL (4.5-6.0); WHITE BLOOD COUNT (AUTO) 5.9 K/uL (4.3-11.0)
[2018-09-17 08:00] VITALS: BP 134/64
[2018-09-17 08:01] LABS: CALCIUM, SERUM 9.3 mg/dL (8.5-10.1); CREATININE 6.9 mg/dL (0.6-1.3); MAGNESIUM 2.8 mg/dL (1.8-2.4); PHOSPHORUS 4.9 mg/dL (2.5-4.9); POTASSIUM 4.1 mmol/L (3.5-5.1)
[2018-09-17] MEDS: ASPIRIN 81 MG TAB.CHEW PO SCH (08:58)
[2018-09-17] MEDS: VITAMIN B COMP W-C 1 TAB TABLET PO SCH (08:58)
[2018-09-17] MEDS: BLOOD SUGAR DIAGNOSTIC 1 EACH STRIP IN SCH ×4 (08:58→21:26)
[2018-09-17] MEDS: CLOPIDOGREL BISULFATE 75 MG TABLET PO SCH (08:59)
[2018-09-17] MEDS: LACTULOSE 10 G/15 ML UDC (PYXIS) PO SCH ×3 (08:59→21:16)
[2018-09-17] MEDS: SEVELAMER CARBONATE 800 MG TABLET PO SCH ×3 (08:59→17:13)
[2018-09-17] MEDS: DOCUSATE SODIUM 100 MG CAPSULE PO SCH ×2 (09:00→17:00)
[2018-09-17] MEDS: CARVEDILOL 12.5 MG TABLET PO SCH ×2 (09:00→21:17)
[2018-09-17] MEDS: LISINOPRIL (20MG) 20 MG TABLET PO SCH (09:11)
[2018-09-17] MEDS: AMLODIPINE BESYLATE 10 MG TABLET PO SCH (09:11)
[2018-09-17 12:00] VITALS: BP 166/79
[2018-09-17 16:00] VITALS: BP 150/68
--- NOTE | 2018-09-17 19:10 | NUR ---
TELE/RN INITIAL NOTES RECEIVED PT IN BED, A/OX3. SR ON TELEMONITOR. DENIES PAIN AT THIS TIME. ON ROOM AIR, NO SOB NOTED. WITH INTACT AND PATENT (R) AC G20 HEPLOCK. (L)ARM ARM AV SHUNT C/D/I. HOB ELEVATED. SAFETY MEASURES IN PLACED. CALL LIGHT WITHIN EASY REACH. WILL CONT TO MONITOR
[2018-09-17 20:00] VITALS: BP 167/80
[2018-09-17] MEDS: ATORVASTATIN 40 MG TABLET PO SCH (21:16)
[2018-09-17] MEDS: TERAZOSIN HCL 1 MG CAPSULE PO SCH (21:16)
[2018-09-17] MEDS: MUPIROCIN OINT 2% 22 GM TUBE SCH (21:26)
[2018-09-18] VITALS: BP 155/70
[2018-09-18 04:00] VITALS: BP 152/75
--- NOTE | 2018-09-18 05:31 | NUR ---
RN NOTES REPORT GIVEN TO NAOMI GARCIA FOR BO
[2018-09-18 06:05] VITALS: BP 135/62
--- NOTE | 2018-09-18 06:05 | NUR ---
TELE/RN NOTES RECEIVED PT. FROM [facility] VIA WHEELCHAIR FOLLOWING ACLS PROTOCOL IN STABLE CONDITION. PT. IS AWAKE, ALERT AND ORIENTED X, BREATHING EVEN AND UNLABORED ON ROOM AIR. NO SOB, RESPIRATORY DISTRESS OR COMPLAINTS OF PAIN NOTED AT THIS TIME. PT. WITH RIGHT AC 20 GAUGE IV SALINE LOCK PRESENT, PATENT AND INTACT. PT. WITH LEFT UPPER ARM AV FISTULA PRESENT AND INTACT. ORIENTED PT. TO ROOM. PLACED EXTERNAL SCIENCE JOB TITLES ON PT. CURRENT RHYTHM = SINUS RHYTHM HR 68. PER DAYSHIFT NURSE PT. IS FOR DIALYSIS TODAY. BED LOCKED AND IN LOWEST POSITION, SIDE RAILS UP X2, BED ALARM ON, CALL LIGHT WITHIN REACH, WILL ENDORSE TO DAYSHIFT NURSE FOR CONTINUITY OF CARE.
--- NOTE | 2018-09-18 06:09 | NUR ---
RN NOTES PT TRANSFERRED TO ROOM 317 IN STABLE CONDITION
[2018-09-18 06:29] LABS: CALCIUM, SERUM 8.5 mg/dL (8.5-10.1); POTASSIUM 4.3 mmol/L (3.5-5.1)
[2018-09-18 06:34] LABS: CREATININE 8.3 mg/dL (0.6-1.3)
[2018-09-18 06:44] LABS: HEMATOCRIT 33 % (39-51); HEMOGLOBIN 10.8 g/dL (13.5-17.5); MEAN CORPUSCULAR HGB CONC 33 g/dl (31.0-36.0); MEAN CORPUSCULAR VOLUME 94 fL (80-96); PLATELET COUNT (AUTO) 136 /CMM (150-450); RED BLOOD CELL COUNT(AUTO) 3.46 MIL/uL (4.5-6.0); WHITE BLOOD COUNT (AUTO) 6.6 K/uL (4.3-11.0)
[2018-09-18] MEDS: BLOOD SUGAR DIAGNOSTIC 1 EACH STRIP IN SCH ×3 (06:49→17:27)
[2018-09-18 07:15] LABS: EOSINOPHILS % (MANUAL) 7 % (0-4); LYMPHOCYTES % (MANUAL) 31 % (16-48); MONOCYTES % (MANUAL) 14 % (0-11.0); NEUTROPHILS % (MANUAL) 48 (42-76)
--- NOTE | 2018-09-18 07:30 | NUR ---
RN OPENING NOTES RECEIVED PT. IN BED AWAKE, A&OX4. BREATHING ON ROOM AIR WITH NO SOB. NO S/S OF ACUTE DISTRESS. PT. IS PLANNED TO HAVE HEMODIALYSIS TODAY. BED IS IN LOWEST, AND LOCKED POSITION. WHEELCHAIR IS WITHIN REACH. 2 SIDE RAILS UP, AND INSTRUCTED PT.T O USE CALL LIGHT FOR ASSISTANCE. ALL NEEDS MET. WILL CONTINUE TO ASSESS AND MONITOR.
[2018-09-18 08:00] VITALS: BP 144/72
[2018-09-18] MEDS: SEVELAMER CARBONATE 800 MG TABLET PO SCH ×3 (08:33→17:31)
[2018-09-18] MEDS: DOCUSATE SODIUM 100 MG CAPSULE PO SCH ×2 (09:00→16:12)
[2018-09-18] MEDS: LACTULOSE 10 G/15 ML UDC (PYXIS) PO SCH ×2 (09:00→12:58)
[2018-09-18] MEDS: AMLODIPINE BESYLATE 10 MG TABLET PO SCH (09:00)
[2018-09-18] MEDS: CARVEDILOL 12.5 MG TABLET PO SCH (09:00)
[2018-09-18] MEDS: ASPIRIN 81 MG TAB.CHEW PO SCH (10:23)
[2018-09-18] MEDS: CLOPIDOGREL BISULFATE 75 MG TABLET PO SCH (10:23)
[2018-09-18] MEDS: MUPIROCIN OINT 2% 22 GM TUBE SCH (10:24)
[2018-09-18] MEDS: LISINOPRIL (20MG) 20 MG TABLET PO SCH (10:27)
[2018-09-18] MEDS: VITAMIN B COMP W-C 1 TAB TABLET PO SCH (10:35)
[2018-09-18] MEDS: INSULIN REGULAR, HUMAN 100 UNIT/ML 3 ML VIAL SQ PRN (12:57)
[2018-09-18 16:00] VITALS: BP 163/81
--- NOTE | 2018-09-18 18:26 | NUR ---
CUSTOMER ADVISOR PT. WAS DISCHARGED IN STABLE MEDICAL CONDITION, A&OX4. DISCHARGE INSTRUCTIONS WITH EDUCATION WAS GIVEN AT BEDSIDE, PT. VERBALIZED UNDERSTANDING AND SIGNED DISCHARGE PAPERS. ID BAND, AND IV WAS REMOVED WITHOUT COMPLICATIONS. PT. LEFT WITH BELONGINGS INCLUDING WHEELCHAIR, CRUTCH, AND DISCHARGE PACKET. PT. LEFT BY TRANSPORTATION SERVICES ORDERED BY DATA MODELING ARCHITECT. ALL QUESTIONS ANSWERED. LAST MANUAL BP READING 140/62, PULSE 69.
== END 2018-09-18 18:30 | disposition home health service (06) | DRG 279 ==
LOC: ER 06:55 → TELE1 11:04 → TELE 09-18 05:47
PROVIDERS: ADMIT Family Medicine; ATTEND Family Medicine
PROC: 5A1D70Z Performance of Urinary Filtration, Intermittent, Less than 6 Hours Per Day (ICD-10-PCS; principal; 2018-09-16)
PROC: 5A1D70Z Performance of Urinary Filtration, Intermittent, Less than 6 Hours Per Day (ICD-10-PCS; 2018-09-18)
DX: K72.00 Acute and subacute hepatic failure without coma (principal); I21.A1 Myocardial infarction type 2; E11.22 Type 2 diabetes mellitus with diabetic chronic kidney disease; E11.610 Type 2 diabetes mellitus with diabetic neuropathic arthropathy; I12.0 Hypertensive chronic kidney disease with stage 5 chronic kidney disease or end stage renal disease; G93.41 Metabolic encephalopathy; K74.60 Unspecified cirrhosis of liver; N18.6 End stage renal disease; Z87.11 Personal history of peptic ulcer disease; Z89.512 Acquired absence of left leg below knee; D63.8 Anemia in other chronic diseases classified elsewhere; N25.81 Secondary hyperparathyroidism of renal origin; Z99.2 Dependence on renal dialysis; E78.5 Hyperlipidemia, unspecified; Z98.890 Other specified postprocedural states
CPT/HCPCS: 36415; 70450-TC; 71045-TC; 80048-TC; 80061-TC; 80076-TC; 82140-TC; 82962-TC; 83735-TC; 84100-TC; 84484-TC; 85025-TC; 85730-TC; 87081-TC; 90935-TC; A6402; G0378; G0480; J1815; J3490

== ENCOUNTER 2018-12-25 05:30 | Inpatient (IN) | payer OTHER ==
[~2018-12-25] VITALS: Ht 172.7 cm; Wt 76.7 kg
[~2018-12-25 05:30] MED LIST changes: +ASPI-1169 PO; +DOCU100C36 PO; -ERGO500014 PO; -IRON100V6 IV; -LACT10SO6 PO; -PANT40TA2 PO; -PARI1CAP PO; +PARI5VIA IV; -RIFA550T PO; +TERA2CAP4 PO
[2018-12-25 06:00] LABS: BASOPHILS # (AUTO) 0.1 /CMM (0.0-0.2); HEMOGLOBIN 12.9 g/dL (13.5-17.5); LYMPHOCYTES % (AUTO) 39.9 % (20.0-44.0); MEAN CORPUSCULAR VOLUME 95 fL (80-96)
[2018-12-25 06:04] LABS: BASOPHILS % (AUTO) 1.5 % (0.0-2.0); HEMATOCRIT 38 % (39-51); LYMPHOCYTES # (AUTO) 2.8 /CMM (0.8-4.8); MEAN CORPUSCULAR HGB CONC 34 g/dl (31.0-36.0); MONOCYTES # (AUTO) 1.1 /CMM (0.1-1.30); MONOCYTES % (AUTO) 15.7 % (2.0-12.0); NEUTROPHILS # (AUTO) 2.5 /CMM (1.8-8.9); NEUTROPHILS % (AUTO) 36.9 % (43.0-81.0); PLATELET COUNT (AUTO) 198 /CMM (150-450); RED BLOOD CELL COUNT(AUTO) 3.97 MIL/uL (4.5-6.0); WHITE BLOOD COUNT (AUTO) 6.9 K/uL (4.3-11.0)
[2018-12-25 06:11] LABS: CALCIUM, SERUM 9.4 mg/dL (8.5-10.1); POTASSIUM 4.6 mmol/L (3.5-5.1)
[2018-12-25 06:12] LABS: CREATININE 7.8 mg/dL (0.6-1.3)
[2018-12-25 06:25] LABS: ALBUMIN 3.5 g/dL (3.4-5.0); BILIRUBIN,DIRECT 0.2 mg/dL (0.0-0.2); BILIRUBIN,TOTAL 0.6 mg/dL (0.2-1.0); TOTAL PROTEIN, SERUM 7.8 g/dL (6.4-8.2)
[2018-12-25] MEDS ORDERED: AMLODIPINE BESYLATE 5 MG TABLET ONE (06:54)
[2018-12-25] MEDS ORDERED: LISINOPRIL (20MG) 20 MG TABLET PO SCH (07:00)
[2018-12-25] MEDS ORDERED: AMLODIPINE BESYLATE 5 MG TABLET PO ONE (07:00)
[2018-12-25] MEDS ORDERED: LACTULOSE 10 G/15 ML UDC (PYXIS) ONE (07:59)
[2018-12-25] MEDS ORDERED: LACTULOSE 10 G/15 ML UDC (PYXIS) PO ONE (08:00)
[2018-12-25] MEDS ORDERED: ENALAPRILAT DIHYD. (2.5MG/ML) 1.25 MG/ML VIAL IV ONE (08:30)
[2018-12-25] MEDS ORDERED: ENALAPRILAT INJ (1.25 MG/ML) 1.25 MG/ML VIAL IV ONE (08:30)
[2018-12-25 12:00] VITALS: BP 155/76
[2018-12-25] MEDS ORDERED: HYDROCODONE/APAP 5/325MG 1 EACH TABLET PO PRN ×2 (12:00)
[2018-12-25] MEDS ORDERED: Z GUARD REMEDY 2 OZ OINT TP PRN (12:00)
[2018-12-25] MEDS ORDERED: ZOLPIDEM TARTRATE 5 MG TABLET PO PRN (12:00)
[2018-12-25] MEDS ORDERED: ONDANSETRON HCL/PF 4 MG/2 ML VIAL IVP PRN (12:00)
[2018-12-25] MEDS ORDERED: MAG HYDROX/AL HYDROX/SIMETH 30 ML UDC PO PRN (12:00)
[2018-12-25] MEDS ORDERED: ACETAMINOPHEN 325 MG TABLET PO PRN (12:00)
[2018-12-25] MEDS ORDERED: MAGNESIUM HYDROXIDE 30 ML UDC PO PRN (12:00)
[2018-12-25] MEDS: LACTULOSE 10 G/15 ML UDC (PYXIS) PO SCH ×2 (12:22→17:14)
[2018-12-25] MEDS: SEVELAMER CARBONATE 800 MG TABLET PO SCH ×2 (12:22→17:14)
[2018-12-25 16:00] VITALS: BP 164/80
[2018-12-25] MEDS: DOCUSATE SODIUM 100 MG CAPSULE PO SCH (17:14)
[2018-12-25] MEDS: hydrALAZINE HCL 25 MG TABLET PO PRN ×2 (18:07→21:18)
[2018-12-25 21:00] VITALS: BP 187/89
[2018-12-25] MEDS: CARVEDILOL 12.5 MG TABLET PO SCH (21:18)
[2018-12-25] MEDS: ATORVASTATIN 40 MG TABLET PO SCH (21:18)
[2018-12-25] MEDS: TERAZOSIN HCL 1 MG CAPSULE PO SCH (21:18)
[2018-12-26] VITALS (7 sets, daily range): BP systolic 99–167; BP diastolic 47–72
[2018-12-26] MEDS: LACTULOSE 10 G/15 ML UDC (PYXIS) PO SCH ×5 (05:33→23:32)
[2018-12-26 06:59] LABS: BASOPHILS # (AUTO) 0.1 /CMM (0.0-0.2); BASOPHILS % (AUTO) 1.3 % (0.0-2.0); EOSINOPHILS % (AUTO) 6.2 % (0.0-6.0); HEMATOCRIT 32 % (39-51); HEMOGLOBIN 10.8 g/dL (13.5-17.5); LYMPHOCYTES # (AUTO) 2.2 /CMM (0.8-4.8); LYMPHOCYTES % (AUTO) 35.8 % (20.0-44.0); MEAN CORPUSCULAR HGB CONC 34 g/dl (31.0-36.0); MEAN CORPUSCULAR VOLUME 95 fL (80-96); MONOCYTES # (AUTO) 0.9 /CMM (0.1-1.30); MONOCYTES % (AUTO) 15.4 % (2.0-12.0); NEUTROPHILS # (AUTO) 2.5 /CMM (1.8-8.9); NEUTROPHILS % (AUTO) 41.3 % (43.0-81.0); PLATELET COUNT (AUTO) 186 /CMM (150-450); RED BLOOD CELL COUNT(AUTO) 3.35 MIL/uL (4.5-6.0); WHITE BLOOD COUNT (AUTO) 6.1 K/uL (4.3-11.0)
[2018-12-26 07:25] LABS: CALCIUM, SERUM 8.9 mg/dL (8.5-10.1); MAGNESIUM 3.3 mg/dL (1.8-2.4); POTASSIUM 4.7 mmol/L (3.5-5.1)
[2018-12-26 07:26] LABS: CREATININE 9.4 mg/dL (0.6-1.3)
[2018-12-26 07:34] LABS: THYROID STIMULATING HORMONE 4.346 uIU/mL (0.358-3.74)
[2018-12-26] MEDS: SEVELAMER CARBONATE 800 MG TABLET PO SCH ×3 (08:00→17:50)
[2018-12-26] MEDS: VIT B CMPLX 3/FA/VIT C/BIOTIN 1 TAB TABLET PO SCH (08:16)
[2018-12-26] MEDS: DOCUSATE SODIUM 100 MG CAPSULE PO SCH ×2 (08:16→17:50)
[2018-12-26] MEDS: CARVEDILOL 12.5 MG TABLET PO SCH ×2 (08:16→21:24)
[2018-12-26] MEDS: ASPIRIN 81 MG TAB.CHEW PO SCH (08:16)
[2018-12-26] MEDS: CLOPIDOGREL BISULFATE 75 MG TABLET PO SCH (08:17)
[2018-12-26] MEDS: AMLODIPINE BESYLATE 10 MG TABLET PO SCH (08:17)
[2018-12-26] MEDS: LISINOPRIL (20MG) 20 MG TABLET PO SCH (08:18)
[2018-12-26] MEDS ORDERED: SODIUM POLYSTYRENE SULFONATE 15 G/60 ML BOTTLE PO ONE (11:00)
[2018-12-26] MEDS: MUPIROCIN OINT 2% 22 GM TUBE SCH (21:22)
[2018-12-26] MEDS: TERAZOSIN HCL 1 MG CAPSULE PO SCH (21:22)
[2018-12-26] MEDS: ATORVASTATIN 40 MG TABLET PO SCH (21:24)
[2018-12-27] VITALS: BP 155/75
[2018-12-27 04:00] VITALS: BP 140/73
[2018-12-27] MEDS: LACTULOSE 10 G/15 ML UDC (PYXIS) PO SCH ×4 (06:00→23:39)
[2018-12-27 06:26] LABS: BASOPHILS # (AUTO) 0.1 /CMM (0.0-0.2); BASOPHILS % (AUTO) 1.2 % (0.0-2.0); EOSINOPHILS % (AUTO) 4.7 % (0.0-6.0); HEMATOCRIT 31 % (39-51); HEMOGLOBIN 10.4 g/dL (13.5-17.5); LYMPHOCYTES # (AUTO) 2.3 /CMM (0.8-4.8); MEAN CORPUSCULAR HGB CONC 34 g/dl (31.0-36.0); MEAN CORPUSCULAR VOLUME 95 fL (80-96); MONOCYTES # (AUTO) 1.1 /CMM (0.1-1.30); MONOCYTES % (AUTO) 14.9 % (2.0-12.0); NEUTROPHILS # (AUTO) 3.5 /CMM (1.8-8.9); NEUTROPHILS % (AUTO) 48.2 % (43.0-81.0); PLATELET COUNT (AUTO) 190 /CMM (150-450); RED BLOOD CELL COUNT(AUTO) 3.21 MIL/uL (4.5-6.0); WHITE BLOOD COUNT (AUTO) 7.3 K/uL (4.3-11.0)
[2018-12-27 06:49] LABS: CALCIUM, SERUM 8.5 mg/dL (8.5-10.1); MAGNESIUM 2.8 mg/dL (1.8-2.4); PHOSPHORUS 5.7 mg/dL (2.5-4.9); POTASSIUM 4.1 mmol/L (3.5-5.1)
[2018-12-27 06:58] LABS: CREATININE 7.5 mg/dL (0.6-1.3)
[2018-12-27 08:00] VITALS: BP 143/75
[2018-12-27] MEDS: DOCUSATE SODIUM 100 MG CAPSULE PO SCH ×2 (08:38→16:10)
[2018-12-27] MEDS: SEVELAMER CARBONATE 800 MG TABLET PO SCH ×3 (08:38→17:11)
[2018-12-27] MEDS: CLOPIDOGREL BISULFATE 75 MG TABLET PO SCH (08:38)
[2018-12-27] MEDS: VIT B CMPLX 3/FA/VIT C/BIOTIN 1 TAB TABLET PO SCH (08:38)
[2018-12-27] MEDS: CARVEDILOL 12.5 MG TABLET PO SCH ×2 (08:39→21:16)
[2018-12-27] MEDS: ASPIRIN 81 MG TAB.CHEW PO SCH (08:39)
[2018-12-27] MEDS: MUPIROCIN OINT 2% 22 GM TUBE SCH ×2 (08:43→21:17)
[2018-12-27] MEDS: AMLODIPINE BESYLATE 10 MG TABLET PO SCH (08:48)
[2018-12-27] MEDS: LISINOPRIL (20MG) 20 MG TABLET PO SCH (08:48)
[2018-12-27] MEDS: LEVOTHYROXINE SODIUM 50 MCG TABLET PO SCH (10:52)
[2018-12-27 16:00] VITALS: BP 147/71
[2018-12-27 20:00] VITALS: BP 155/73
[2018-12-27] MEDS: ATORVASTATIN 40 MG TABLET PO SCH (21:15)
[2018-12-27] MEDS: TERAZOSIN HCL 1 MG CAPSULE PO SCH (21:15)
[2018-12-28 04:00] VITALS: BP 129/67
[2018-12-28] MEDS: LACTULOSE 10 G/15 ML UDC (PYXIS) PO SCH ×3 (06:00→17:07)
[2018-12-28 08:00] VITALS: BP 118/60
[2018-12-28] MEDS: DOCUSATE SODIUM 100 MG CAPSULE PO SCH ×2 (08:08→16:25)
[2018-12-28] MEDS: SEVELAMER CARBONATE 800 MG TABLET PO SCH ×3 (08:45→17:07)
[2018-12-28] MEDS: CLOPIDOGREL BISULFATE 75 MG TABLET PO SCH (08:45)
[2018-12-28] MEDS: VIT B CMPLX 3/FA/VIT C/BIOTIN 1 TAB TABLET PO SCH (08:45)
[2018-12-28] MEDS: AMLODIPINE BESYLATE 10 MG TABLET PO SCH (08:45)
[2018-12-28] MEDS: LEVOTHYROXINE SODIUM 50 MCG TABLET PO SCH (08:46)
[2018-12-28] MEDS: CARVEDILOL 12.5 MG TABLET PO SCH ×3 (08:46→20:12)
[2018-12-28] MEDS: LISINOPRIL (20MG) 20 MG TABLET PO SCH ×2 (08:46→08:57)
[2018-12-28] MEDS: ASPIRIN 81 MG TAB.CHEW PO SCH (08:46)
[2018-12-28] MEDS: MUPIROCIN OINT 2% 22 GM TUBE SCH ×2 (08:49→20:12)
[2018-12-28] MEDS ORDERED: FEE PK DOSING 1 MIN EA MC ONE (10:45)
[2018-12-28] MEDS ORDERED: VANCOMYCIN 1 GM in IV D5W 250 ML IV ONE (11:00)
[2018-12-28 16:00] VITALS: BP 140/71
[2018-12-28 20:00] VITALS: BP 136/71
[2018-12-28 20:47] VITALS: BP 136/71
[2018-12-28] MEDS: TERAZOSIN HCL 1 MG CAPSULE PO SCH (21:00)
[2018-12-28] MEDS: ATORVASTATIN 40 MG TABLET PO SCH (21:01)
[2018-12-29] VITALS: BP 146/90
[2018-12-29] MEDS: LACTULOSE 10 G/15 ML UDC (PYXIS) PO SCH ×3 (00:15→12:00)
[2018-12-29 01:36] VITALS: BP 122/64
[2018-12-29 04:00] VITALS: BP 135/80
[2018-12-29 04:25] VITALS: BP 135/80
[2018-12-29] MEDS ORDERED: VANCOMYCIN 500 MG in IV D5W 100 ML IV PRN (07:00)
[2018-12-29 07:43] LABS: BASOPHILS # (AUTO) 0.1 /CMM (0.0-0.2); BASOPHILS % (AUTO) 1.1 % (0.0-2.0); HEMATOCRIT 33 % (39-51); HEMOGLOBIN 11.1 g/dL (13.5-17.5); LYMPHOCYTES # (AUTO) 2.9 /CMM (0.8-4.8); LYMPHOCYTES % (AUTO) 37.8 % (20.0-44.0); MEAN CORPUSCULAR HGB CONC 34 g/dl (31.0-36.0); MEAN CORPUSCULAR VOLUME 96 fL (80-96); MONOCYTES # (AUTO) 1.3 /CMM (0.1-1.30); MONOCYTES % (AUTO) 17.5 % (2.0-12.0); NEUTROPHILS # (AUTO) 2.8 /CMM (1.8-8.9); NEUTROPHILS % (AUTO) 36.6 % (43.0-81.0); PLATELET COUNT (AUTO) 198 /CMM (150-450); RED BLOOD CELL COUNT(AUTO) 3.43 MIL/uL (4.5-6.0); WHITE BLOOD COUNT (AUTO) 7.7 K/uL (4.3-11.0)
[2018-12-29 07:56] LABS: CALCIUM, SERUM 8.6 mg/dL (8.5-10.1); MAGNESIUM 2.9 mg/dL (1.8-2.4); PHOSPHORUS 6.3 mg/dL (2.5-4.9); POTASSIUM 4.2 mmol/L (3.5-5.1)
[2018-12-29 07:57] LABS: CREATININE 8.9 mg/dL (0.6-1.3)
[2018-12-29 08:00] VITALS: BP 137/67
[2018-12-29] MEDS: SEVELAMER CARBONATE 800 MG TABLET PO SCH ×2 (08:49→12:52)
[2018-12-29] MEDS: LEVOTHYROXINE SODIUM 50 MCG TABLET PO SCH (08:52)
[2018-12-29] MEDS: DOCUSATE SODIUM 100 MG CAPSULE PO SCH (08:52)
[2018-12-29] MEDS: LISINOPRIL (20MG) 20 MG TABLET PO SCH (08:52)
[2018-12-29] MEDS: AMLODIPINE BESYLATE 10 MG TABLET PO SCH (08:52)
[2018-12-29] MEDS: CLOPIDOGREL BISULFATE 75 MG TABLET PO SCH (08:53)
[2018-12-29] MEDS: CARVEDILOL 12.5 MG TABLET PO SCH (08:53)
[2018-12-29] MEDS: VIT B CMPLX 3/FA/VIT C/BIOTIN 1 TAB TABLET PO SCH (08:53)
[2018-12-29] MEDS: ASPIRIN 81 MG TAB.CHEW PO SCH (08:53)
[2018-12-29] MEDS: MUPIROCIN OINT 2% 22 GM TUBE SCH (08:54)
[2018-12-29] MEDS ORDERED: DAKINS QUARTER STRENGTH (0.125%) 480 ML BOTTLE TOP SCH (11:00)
[2018-12-29] MEDS ORDERED: CLIN300C11 PO (12:13)
[2018-12-29] MEDS ORDERED: LEVO50TA PO (12:17)
[2018-12-29] MEDS ORDERED: LACT10SO6 PO (12:21)
[2018-12-29 16:00] VITALS: BP 144/70
== END 2018-12-29 15:50 | disposition home or self-care (01) | DRG 466 ==
LOC: ER 05:30 → TELE1 08:40 → MEDSG1 12-27 09:51 → TELE1 12-28 21:16 → MEDSG1 12-29 06:56
PROVIDERS: ADMIT Student in an Organized Health Care Education/Training Program; ATTEND Student in an Organized Health Care Education/Training Program
PROC: 5A1D70Z Performance of Urinary Filtration, Intermittent, Less than 6 Hours Per Day (ICD-10-PCS; principal; 2018-12-26)
PROC: 0JBP0ZZ Excision of Left Lower Leg Subcutaneous Tissue and Fascia, Open Approach (ICD-10-PCS; principal; 2018-12-26)
PROC: 5A1D70Z Performance of Urinary Filtration, Intermittent, Less than 6 Hours Per Day (ICD-10-PCS; 2018-12-27)
DX: T82.510A Breakdown (mechanical) of surgically created arteriovenous fistula, initial encounter (principal); N18.6 End stage renal disease; I21.A1 Myocardial infarction type 2; G93.41 Metabolic encephalopathy; I13.2 Hypertensive heart and chronic kidney disease with heart failure and with stage 5 chronic kidney disease, or end stage renal disease; E72.4 Disorders of ornithine metabolism; E11.22 Type 2 diabetes mellitus with diabetic chronic kidney disease; E83.39 Other disorders of phosphorus metabolism; D63.8 Anemia in other chronic diseases classified elsewhere; S90.222A Contusion of left lesser toe(s) with damage to nail, initial encounter; Y84.8 Other medical procedures as the cause of abnormal reaction of the patient, or of later complication, without mention of misadventure at the time of the procedure; Y92.009 Unspecified place in unspecified non-institutional (private) residence as the place of occurrence of the external cause; T87.89 Other complications of amputation stump; Y83.8 Other surgical procedures as the cause of abnormal reaction of the patient, or of later complication, without mention of misadventure at the time of the procedure; E03.9 Hypothyroidism, unspecified; K74.60 Unspecified cirrhosis of liver; Z87.11 Personal history of peptic ulcer disease; Z99.2 Dependence on renal dialysis; E83.41 Hypermagnesemia; X58.XXXA Exposure to other specified factors, initial encounter; Y93.9 Activity, unspecified; B95.62 Methicillin resistant Staphylococcus aureus infection as the cause of diseases classified elsewhere; Z79.82 Long term (current) use of aspirin; E11.621 Type 2 diabetes mellitus with foot ulcer; L97.528 Non-pressure chronic ulcer of other part of left foot with other specified severity
CPT/HCPCS: 36415; 71045-TC; 80048-TC; 80061-TC; 80076-TC; 82140-TC; 83540-TC; 83735-TC; 83880; 84100-TC; 84439-TC; 84443-TC; 84484-TC; 85025-TC; 85610-TC; 85730-TC; 86850-TC; 87070-TC; 87081-TC; 90935-TC; G0378; J3370; J3490; J7050; J7060

== ENCOUNTER 2019-06-27 07:51 | Inpatient (IN) | payer OTHER ==
[~2019-06-27] VITALS: Ht 175.3 cm; Wt 68.0 kg
[~2019-06-27 07:51] MED LIST changes: +CLIN300C11 PO; +LACT10SO6 PO; +LEVO50TA PO; -PARI5VIA IV
[2019-06-27 08:26] LABS: BASOPHILS % (AUTO) 0.3 % (0.0-2.0); EOSINOPHILS % (AUTO) 1.6 % (0.0-6.0); HEMATOCRIT 32 % (39-51); HEMOGLOBIN 10.5 g/dL (13.5-17.5); LYMPHOCYTES # (AUTO) 0.8 /CMM (0.8-4.8); LYMPHOCYTES % (AUTO) 7.2 % (20.0-44.0); MEAN CORPUSCULAR HGB CONC 33 g/dl (31.0-36.0); MEAN CORPUSCULAR VOLUME 98 fL (80-96); MONOCYTES # (AUTO) 0.5 /CMM (0.1-1.30); MONOCYTES % (AUTO) 4.3 % (2.0-12.0); NEUTROPHILS # (AUTO) 9.8 /CMM (1.8-8.9); NEUTROPHILS % (AUTO) 86.6 % (43.0-81.0); RED BLOOD CELL COUNT(AUTO) 3.26 MIL/uL (4.5-6.0); WHITE BLOOD COUNT (AUTO) 11.3 K/uL (4.3-11.0)
[2019-06-27 08:30] LABS: CALCIUM, SERUM 9.2 mg/dL (8.5-10.1); CARBON DIOXIDE 23 mmol/L (21-32); CHLORIDE 104 mmol/L (98-107); CREATININE 5.7 mg/dL (0.6-1.3); GLUCOSE 152 mg/dL (74-106); PLATELET COUNT (AUTO) 28 /CMM (150-450); SODIUM SERUM 138 mmol/L (136-145); UREA NITROGEN, BLOOD 26 mg/dL (7-18)
[2019-06-27 08:36] LABS: ALANINE AMINOTRANSFERASE 15 U/L (12-78); ALKALINE PHOSPHATASE 153 U/L (46-116); ASPARTATE AMINOTRANSFERASE 24 U/L (15-37); BILIRUBIN,DIRECT 0.2 mg/dL (0.0-0.2); BILIRUBIN,TOTAL 0.6 mg/dL (0.2-1.0); LIPASE < 10 U/L (73-393); TOTAL PROTEIN, SERUM 7.3 g/dL (6.4-8.2)
[2019-06-27 08:52] LABS: ALBUMIN 0.6 g/dL (3.4-5.0)
[2019-06-27] MEDS ORDERED: TRAZ-252 PO (09:26)
[2019-06-27 09:31] LABS: LYMPHOCYTES % (MANUAL) 9 % (16-48); MONOCYTES % (MANUAL) 2 % (0-11.0); NEUTROPHILS % (MANUAL) 89 (42-76)
[2019-06-27 10:40] VITALS: BP 173/92
[2019-06-27 11:00] VITALS: BP 173/92
[2019-06-27] MEDS ORDERED: HYDROCODONE/APAP 5/325MG 1 EACH TABLET PO PRN (11:30)
[2019-06-27] MEDS ORDERED: DOCUSATE SODIUM 100 MG CAPSULE PO PRN (11:30)
[2019-06-27] MEDS ORDERED: TRAZODONE 50 MG TABLET PO PRN (11:30)
[2019-06-27] MEDS ORDERED: Z GUARD REMEDY 2 OZ OINT TP PRN (12:00)
[2019-06-27] MEDS ORDERED: ONDANSETRON HCL/PF 4 MG/2 ML VIAL IVP PRN (12:00)
[2019-06-27] MEDS: SEVELAMER CARBONATE 800 MG TABLET PO SCH ×2 (12:20→17:23)
[2019-06-27] MEDS: METRONIDAZOLE 500 MG TABLET PO SCH ×2 (12:20→20:52)
[2019-06-27] MEDS: LEVOFLOXACIN (500MG) 500 MG TABLET PO SCH (12:20)
[2019-06-27] MEDS: PROSOURCE / PROSTAT (PYXIS) 30 ML UDC PO SCH ×2 (13:08→17:47)
[2019-06-27 16:00] VITALS: BP 150/53
[2019-06-27] MEDS: RIFAXIMIN 550 MG TABLET PO SCH (17:23)
[2019-06-27] MEDS ORDERED: hydrALAZINE HCL 25 MG TABLET PO PRN (18:00)
[2019-06-27 20:00] VITALS: BP 145/79
[2019-06-27 20:14] VITALS: BP 145/79
[2019-06-27] MEDS ORDERED: HEPARIN SODIUM, PORCINE 5000 UNITS/1 ML VIAL SQ SCH ×2 (21:00)
[2019-06-27] MEDS: TERAZOSIN HCL 1 MG CAPSULE PO SCH (22:22)
[2019-06-27] MEDS: ACETAMINOPHEN 325 MG TABLET PO PRN (23:01)
[2019-06-28] VITALS (7 sets, daily range): BP systolic 107–130; BP diastolic 58–92
[2019-06-28] MEDS: METRONIDAZOLE 500 MG TABLET PO SCH ×3 (05:17→21:59)
[2019-06-28 06:39] LABS: BASOPHILS % (AUTO) 0.7 % (0.0-2.0); EOSINOPHILS % (AUTO) 0.2 % (0.0-6.0); HEMATOCRIT 29 % (39-51); HEMOGLOBIN 9.9 g/dL (13.5-17.5); LYMPHOCYTES # (AUTO) 1.3 /CMM (0.8-4.8); LYMPHOCYTES % (AUTO) 20.8 % (20.0-44.0); MEAN CORPUSCULAR HGB CONC 34 g/dl (31.0-36.0); MEAN CORPUSCULAR VOLUME 96 fL (80-96); MONOCYTES # (AUTO) 1.1 /CMM (0.1-1.30); MONOCYTES % (AUTO) 16.9 % (2.0-12.0); NEUTROPHILS # (AUTO) 3.9 /CMM (1.8-8.9); NEUTROPHILS % (AUTO) 61.4 % (43.0-81.0); PLATELET COUNT (AUTO) 182 /CMM (150-450); RED BLOOD CELL COUNT(AUTO) 3.06 MIL/uL (4.5-6.0); WHITE BLOOD COUNT (AUTO) 6.3 K/uL (4.3-11.0)
[2019-06-28 06:43] LABS: ALBUMIN 2.8 g/dL (3.4-5.0); BILIRUBIN,TOTAL 0.6 mg/dL (0.2-1.0); CALCIUM, SERUM 8.6 mg/dL (8.5-10.1); MAGNESIUM 2.2 mg/dL (1.8-2.4); PHOSPHORUS 4.2 mg/dL (2.5-4.9); POTASSIUM 4.2 mmol/L (3.5-5.1); TOTAL PROTEIN, SERUM 6.7 g/dL (6.4-8.2)
[2019-06-28 06:47] LABS: CREATININE 8.4 mg/dL (0.6-1.3)
[2019-06-28] MEDS: PROSOURCE / PROSTAT (PYXIS) 30 ML UDC PO SCH ×3 (09:00→17:49)
[2019-06-28] MEDS: VIT B CMPLX 3/FA/VIT C/BIOTIN 1 TAB TABLET PO SCH (09:00)
[2019-06-28] MEDS: SEVELAMER CARBONATE 800 MG TABLET PO SCH ×3 (09:00→17:44)
[2019-06-28] MEDS ORDERED: ASPIRIN 81 MG TAB.CHEW PO SCH (09:00)
[2019-06-28] MEDS: LISINOPRIL (20MG) 20 MG TABLET PO SCH (09:00)
[2019-06-28] MEDS: RIFAXIMIN 550 MG TABLET PO SCH ×2 (09:00→17:44)
[2019-06-28 09:01] LABS: LYMPHOCYTES % (MANUAL) 22 % (16-48); MONOCYTES % (MANUAL) 16 % (0-11.0); NEUTROPHILS % (MANUAL) 62 (42-76)
[2019-06-28] MEDS: AMLODIPINE BESYLATE 10 MG TABLET PO SCH (09:01)
[2019-06-28] MEDS: TERAZOSIN HCL 1 MG CAPSULE PO SCH (21:59)
[2019-06-29 00:01] VITALS: BP 150/78
[2019-06-29] MEDS: ACETAMINOPHEN 325 MG TABLET PO PRN (01:36)
[2019-06-29 04:00] VITALS: BP 153/74
[2019-06-29 04:03] VITALS: BP 153/74
[2019-06-29] MEDS: METRONIDAZOLE 500 MG TABLET PO SCH ×3 (05:00→21:07)
[2019-06-29 07:10] LABS: BASOPHILS % (AUTO) 0.9 % (0.0-2.0); EOSINOPHILS % (AUTO) 2.6 % (0.0-6.0); HEMATOCRIT 28 % (39-51); HEMOGLOBIN 9.4 g/dL (13.5-17.5); LYMPHOCYTES % (AUTO) 38.2 % (20.0-44.0); MEAN CORPUSCULAR HGB CONC 33 g/dl (31.0-36.0); MEAN CORPUSCULAR VOLUME 96 fL (80-96); MONOCYTES # (AUTO) 1.2 /CMM (0.1-1.30); MONOCYTES % (AUTO) 23.1 % (2.0-12.0); NEUTROPHILS # (AUTO) 1.9 /CMM (1.8-8.9); NEUTROPHILS % (AUTO) 35.2 % (43.0-81.0); PLATELET COUNT (AUTO) 170 /CMM (150-450); RED BLOOD CELL COUNT(AUTO) 2.94 MIL/uL (4.5-6.0); WHITE BLOOD COUNT (AUTO) 5.3 K/uL (4.3-11.0)
[2019-06-29 07:17] LABS: CALCIUM, SERUM 8.5 mg/dL (8.5-10.1); MAGNESIUM 2.4 mg/dL (1.8-2.4); PHOSPHORUS 4.9 mg/dL (2.5-4.9); POTASSIUM 3.8 mmol/L (3.5-5.1)
[2019-06-29 07:24] LABS: CREATININE 10.5 mg/dL (0.6-1.3)
[2019-06-29 08:00] VITALS: BP 144/69
[2019-06-29] MEDS: RIFAXIMIN 550 MG TABLET PO SCH ×2 (08:29→16:48)
[2019-06-29] MEDS: AMLODIPINE BESYLATE 10 MG TABLET PO SCH (08:29)
[2019-06-29] MEDS: VIT B CMPLX 3/FA/VIT C/BIOTIN 1 TAB TABLET PO SCH (08:29)
[2019-06-29] MEDS: LISINOPRIL (20MG) 20 MG TABLET PO SCH (08:29)
[2019-06-29] MEDS: SEVELAMER CARBONATE 800 MG TABLET PO SCH ×3 (08:30→18:24)
[2019-06-29] MEDS: PROSOURCE / PROSTAT (PYXIS) 30 ML UDC PO SCH ×2 (08:30→16:48)
[2019-06-29] MEDS: DIPHENOXYLATE HCL/ATROP SULF 1 UDTAB TABLET PO PRN ×3 (11:14→18:24)
[2019-06-29] MEDS: LEVOFLOXACIN (500MG) 500 MG TABLET PO SCH (11:14)
[2019-06-29 16:00] VITALS: BP 155/75
[2019-06-29] MEDS: TERAZOSIN HCL 1 MG CAPSULE PO SCH (21:23)
[2019-06-29 23:34] VITALS: BP 171/96
[2019-06-30] VITALS: BP 153/79
[2019-06-30] MEDS: ACETAMINOPHEN 325 MG TABLET PO PRN (00:24)
[2019-06-30] MEDS: DIPHENOXYLATE HCL/ATROP SULF 1 UDTAB TABLET PO PRN ×3 (00:24→17:37)
[2019-06-30 04:47] VITALS: BP 147/75
[2019-06-30] MEDS: METRONIDAZOLE 500 MG TABLET PO SCH ×3 (05:01→22:19)
[2019-06-30 07:09] LABS: *SPE A/G RATIO 1.2 (0.7-1.7); *SPE ALBUMIN 3.8 g/dL (2.9-4.4); *SPE ALPHA-1-GLOBULIN 0.2 g/dL (0.0-0.4); *SPE ALPHA-2-GLOBULIN 0.6 g/dL (0.4-1.0); *SPE BETA GLOBULIN 0.9 g/dL (0.7-1.3); *SPE GLOBULIN, TOTAL 3.1 g/dL (2.2-3.9); *SPE M-SPIKE Not Observed g/dL (Not Observed); *SPEGAMMA GLOBULIN 1.4 g/dL (0.4-1.8)
[2019-06-30 07:43] LABS: BASOPHILS % (AUTO) 0.7 % (0.0-2.0); EOSINOPHILS % (AUTO) 3.6 % (0.0-6.0); HEMATOCRIT 30 % (39-51); LYMPHOCYTES # (AUTO) 2.4 /CMM (0.8-4.8); LYMPHOCYTES % (AUTO) 35.6 % (20.0-44.0); MEAN CORPUSCULAR HGB CONC 33 g/dl (31.0-36.0); MEAN CORPUSCULAR VOLUME 97 fL (80-96); MONOCYTES # (AUTO) 1.1 /CMM (0.1-1.30); MONOCYTES % (AUTO) 16.2 % (2.0-12.0); NEUTROPHILS # (AUTO) 2.9 /CMM (1.8-8.9); NEUTROPHILS % (AUTO) 43.9 % (43.0-81.0); PLATELET COUNT (AUTO) 179 /CMM (150-450); RED BLOOD CELL COUNT(AUTO) 3.11 MIL/uL (4.5-6.0); WHITE BLOOD COUNT (AUTO) 6.6 K/uL (4.3-11.0)
[2019-06-30 07:59] LABS: CALCIUM, SERUM 8.6 mg/dL (8.5-10.1); MAGNESIUM 2.5 mg/dL (1.8-2.4); POTASSIUM 4.4 mmol/L (3.5-5.1)
[2019-06-30 08:00] VITALS: BP_SYST 137; BP_SYST 157; BP_DIAS 80
[2019-06-30 08:01] LABS: CREATININE 12.5 mg/dL (0.6-1.3)
[2019-06-30] MEDS: RIFAXIMIN 550 MG TABLET PO SCH ×2 (08:43→17:30)
[2019-06-30] MEDS: SEVELAMER CARBONATE 800 MG TABLET PO SCH ×3 (08:43→17:30)
[2019-06-30] MEDS: VIT B CMPLX 3/FA/VIT C/BIOTIN 1 TAB TABLET PO SCH (08:49)
[2019-06-30] MEDS: PROSOURCE / PROSTAT (PYXIS) 30 ML UDC PO SCH ×3 (09:00→17:30)
[2019-06-30 11:11] LABS: *ANCANTIMYELOPEROXIDASE (MPO) <9.0 U/mL (0.0-9.0); *ANCANTIPROTEINASE 3 (PR-3) AB <3.5 U/mL (0.0-3.5)
[2019-06-30] MEDS: LISINOPRIL (20MG) 20 MG TABLET PO SCH (11:22)
[2019-06-30] MEDS: AMLODIPINE BESYLATE 10 MG TABLET PO SCH (11:22)
[2019-06-30 15:06] LABS: *ANCA ATYPICAL p-ANCA <1:20 titer (Neg:<1:20); *ANCA CYTOPLASMIC (C-ANCA) <1:20 titer (Neg:<1:20); *ANCA PERINUCLEAR (P-ANCA) <1:20 titer (Neg:<1:20)
[2019-06-30 16:00] VITALS: BP 170/83
[2019-06-30 17:06] LABS: *ANA ANTI-CENTROMERE B AB <0.2 AI (0.0-0.9); *ANA ANTI-DNA(DS) AB, QN 1 IU/mL (0-9); *ANA ANTI-JO-1 <0.2 AI (0.0-0.9); *ANA ANTICHROMATIN ANTIBODY <0.2 AI (0.0-0.9); *ANA RNP ANTIBODIES <0.2 AI (0.0-0.9); *ANA SJOGREN'S ANTI-SS-A <0.2 AI (0.0-0.9); *ANA SJOGREN'S ANTI-SS-B <0.2 AI (0.0-0.9); *ANAANTI-SCLERODERMA-70 AB <0.2 AI (0.0-0.9); *ANASMITH AB <0.2 AI (0.0-0.9)
[2019-06-30 20:00] VITALS: BP 144/71
[2019-06-30] MEDS: TERAZOSIN HCL 1 MG CAPSULE PO SCH (22:20)
[2019-07-01] VITALS: BP 137/73
[2019-07-01 04:00] VITALS: BP 134/69
[2019-07-01] MEDS: METRONIDAZOLE 500 MG TABLET PO SCH ×2 (05:24→13:25)
[2019-07-01 07:29] LABS: BASOPHILS % (AUTO) 0.5 % (0.0-2.0); EOSINOPHILS % (AUTO) 4.7 % (0.0-6.0); HEMATOCRIT 30 % (39-51); LYMPHOCYTES # (AUTO) 2.4 /CMM (0.8-4.8); LYMPHOCYTES % (AUTO) 43.1 % (20.0-44.0); MEAN CORPUSCULAR HGB CONC 34 g/dl (31.0-36.0); MEAN CORPUSCULAR VOLUME 96 fL (80-96); MONOCYTES # (AUTO) 0.9 /CMM (0.1-1.30); MONOCYTES % (AUTO) 16.3 % (2.0-12.0); NEUTROPHILS % (AUTO) 35.4 % (43.0-81.0); PLATELET COUNT (AUTO) 160 /CMM (150-450); RED BLOOD CELL COUNT(AUTO) 3.09 MIL/uL (4.5-6.0); WHITE BLOOD COUNT (AUTO) 5.5 K/uL (4.3-11.0)
[2019-07-01 07:58] LABS: CALCIUM, SERUM 8.3 mg/dL (8.5-10.1); MAGNESIUM 2.3 mg/dL (1.8-2.4); PHOSPHORUS 4.2 mg/dL (2.5-4.9); POTASSIUM 4.1 mmol/L (3.5-5.1)
[2019-07-01 08:00] VITALS: BP 153/70
[2019-07-01 08:00] LABS: CREATININE 8.9 mg/dL (0.6-1.3)
[2019-07-01] MEDS: PROSOURCE / PROSTAT (PYXIS) 30 ML UDC PO SCH ×2 (09:00→17:00)
[2019-07-01] MEDS: SEVELAMER CARBONATE 800 MG TABLET PO SCH ×3 (09:31→17:22)
[2019-07-01] MEDS: AMLODIPINE BESYLATE 10 MG TABLET PO SCH (09:31)
[2019-07-01] MEDS: RIFAXIMIN 550 MG TABLET PO SCH ×2 (09:31→17:22)
[2019-07-01] MEDS: VIT B CMPLX 3/FA/VIT C/BIOTIN 1 TAB TABLET PO SCH (09:31)
[2019-07-01 09:32] VITALS: BP 153/70
[2019-07-01] MEDS: LISINOPRIL (20MG) 20 MG TABLET PO SCH (09:32)
[2019-07-01] MEDS: LEVOFLOXACIN (500MG) 500 MG TABLET PO SCH (11:04)
[2019-07-01] MEDS: ACETAMINOPHEN 325 MG TABLET PO PRN (11:04)
[2019-07-01] MEDS ORDERED: LEVO500T2 PO (11:57)
[2019-07-01] MEDS ORDERED: RIFA550T PO (11:57)
[2019-07-01] MEDS ORDERED: METR500T PO (11:57)
[2019-07-01] MEDS ORDERED: Prosource PO (11:57)
[2019-07-01] MEDS ORDERED: LACT10SO PO (11:57)
== END 2019-07-01 18:07 | disposition home or self-care (01) | DRG 422 ==
LOC: ER 07:54 → TELE 10:23
PROVIDERS: ADMIT Nurse Practitioner Acute Care; ATTEND Registered Nurse
PROC: 5A1D70Z Performance of Urinary Filtration, Intermittent, Less than 6 Hours Per Day (ICD-10-PCS; principal; 2019-06-30)
DX: E86.0 Dehydration (principal); E11.22 Type 2 diabetes mellitus with diabetic chronic kidney disease; D69.6 Thrombocytopenia, unspecified; I12.0 Hypertensive chronic kidney disease with stage 5 chronic kidney disease or end stage renal disease; N18.6 End stage renal disease; E88.09 Other disorders of plasma-protein metabolism, not elsewhere classified; E83.9 Disorder of mineral metabolism, unspecified; K72.10 Chronic hepatic failure without coma; Z99.2 Dependence on renal dialysis; D72.829 Elevated white blood cell count, unspecified; R53.1 Weakness; Z89.512 Acquired absence of left leg below knee; D64.9 Anemia, unspecified
CPT/HCPCS: 36415; 76705-TC; 80048-TC; 80053-TC; 80061-TC; 80076-TC; 82140-TC; 82962-TC; 83520; 83690-TC; 83735-TC; 84100-TC; 84155; 84165; 85025-TC; 85385-TC; 85652-TC; 86022; 86225; 86235; 86256; 87045-TC; 87081-TC; 87340; 89055; 90935-TC; G0378

== ENCOUNTER 2019-12-05 00:40 | Inpatient (IN) | payer OTHER ==
[~2019-12-05] VITALS: Ht 175.3 cm; Wt 77.1 kg
[~2019-12-05 00:40] MED LIST changes: -ATOR80TA PO; -CARV25TA2 PO; -CLIN300C11 PO; -CLOP75TA15 PO; +LACT10SO PO; -LACT10SO6 PO; +LEVO500T2 PO; -LEVO50TA PO; +METR500T PO; +Prosource PO; +RIFA550T PO; +TRAZ-252 PO
--- NOTE | 2019-12-05 00:40 | NUR ---
PT BIB SELF C/O "I FEEL DISORIENTED", DIARRHEA WITH N/V, GEN WEAKNESS X COUPLE OF HOURS, PT IS AAOX4, NOT IN RESPIRATORY DISTRESS, HOOKED TO MONITOR, KEPT RESTED AND COMFORTABLE, WILL CONTINUE TO MONITOR.
--- NOTE | 2019-12-05 01:00 | NUR ---
IV LINE ESTABLISHED, BLOOD DRAWN AND SENT TO LAB.
--- NOTE | 2019-12-05 01:09 | NUR ---
AT BEDSIDE FOR EVAL.
[2019-12-05 01:26] LABS: BASOPHILS # (AUTO) 0.1 /CMM (0.0-0.2); BASOPHILS % (AUTO) 1.3 % (0.0-2.0); EOSINOPHILS % (AUTO) 5.8 % (0.0-6.0); HEMATOCRIT 34 % (39-51); HEMOGLOBIN 11.3 g/dL (13.5-17.5); LYMPHOCYTES # (AUTO) 1.6 /CMM (0.8-4.8); LYMPHOCYTES % (AUTO) 23.1 % (20.0-44.0); MEAN CORPUSCULAR HGB CONC 33 g/dl (31.0-36.0); MEAN CORPUSCULAR VOLUME 94 fL (80-96); MONOCYTES # (AUTO) 1.3 /CMM (0.1-1.30); MONOCYTES % (AUTO) 17.8 % (2.0-12.0); NEUTROPHILS # (AUTO) 3.7 /CMM (1.8-8.9); PLATELET COUNT (AUTO) 200 /CMM (150-450); RED BLOOD CELL COUNT(AUTO) 3.59 MIL/uL (4.5-6.0); WHITE BLOOD COUNT (AUTO) 7.1 K/uL (4.3-11.0)
[2019-12-05 01:43] LABS: CALCIUM, SERUM 9.5 mg/dL (8.5-10.1); POTASSIUM 5.1 mmol/L (3.5-5.1)
[2019-12-05 01:44] LABS: CREATININE 8.8 mg/dL (0.6-1.3)
[2019-12-05 01:46] LABS: ALBUMIN 3.4 g/dL (3.4-5.0); BILIRUBIN,DIRECT 0.2 mg/dL (0.0-0.2); BILIRUBIN,TOTAL 0.6 mg/dL (0.2-1.0); TOTAL PROTEIN, SERUM 7.5 g/dL (6.4-8.2)
[2019-12-05] MEDS ORDERED: IV NS 0.9% 500 ML BAG IV ONE (02:30)
[2019-12-05] MEDS ORDERED: IV NS 0.9% 1,000 ML IV PRN (03:45)
--- NOTE | 2019-12-05 03:48 | NUR ---
REPORT GIVEN TO NAOMI VILLEDA FOR BO.
[2019-12-05 04:00] VITALS: BP 160/89
[2019-12-05] MEDS ORDERED: ONDANSETRON HCL/PF 4 MG/2 ML VIAL IVP PRN (04:00)
[2019-12-05] MEDS ORDERED: Z GUARD REMEDY 2 OZ OINT TP PRN (04:00)
--- NOTE | 2019-12-05 04:00 | NUR ---
COLD MEAT COOK ADMITTING NOTES RECEIVED PT FROM ER VIA KEVIN. PT A/O X3 AND ABLE TO MAKE NEEDS KNOWN. RESPIRATIONS EVEN AND UNLABORED WITH NO S/S OF ACUTE DISTRESS OR SOB NOTED. NO COMPLAINTS OF PAIN AT THIS TIME. PT NOTED WITH RFA #20G PATENT AND INTACT AND SL. ORIENTED PT TO ROOM AND STAFF. SAFETY MEASURES IN PLACE WITH BED IN LOWEST LOCKED POSITION WITH SIDE RAILS UP X2. CALL LIGHT WITHIN REACH. WILL CONTINUE TO MONITOR.
[2019-12-05] MEDS: LACTULOSE 10 G/15 ML UDC (PYXIS) PO SCH ×7 (04:30→21:11)
--- NOTE | 2019-12-05 04:30 | NUR ---
AUTOPSY PATHOLOGIST NOTES PT REFUSED IV FLUIDS AT THIS TIME. WILL CONTINUE TO MONITOR.
--- NOTE | 2019-12-05 07:07 | NUR ---
E COMMERCE PROJECT MANAGER NOTES PT IN BED AND AWAKE. PT A/O X3 AND ABLE TO MAKE NEEDS KNOWN. RESPIRATIONS EVEN AND UNLABORED WITH NO S/S OF ACUTE DISTRESS OR SOB NOTED THROUGHOUT SHIFT. NO COMPLAINTS OF PAIN AT THIS TIME. PT NOTED WITH RFA #20G PATENT AND INTACT AND SL. PT KEPT CLEAN, DRY, AND COMFORTABLE.. SAFETY MEASURES IN PLACE WITH BED IN LOWEST LOCKED POSITION WITH SIDE RAILS UP X2. CALL LIGHT WITHIN REACH. WILL ENDORSE TO ONCOMING NURSE FOR BO.
--- NOTE | 2019-12-05 07:32 | NUR ---
SHOULDER BONER OPENING NOTE RECEIVED PATIENT IN BED SLEEPING COMFORTABLY. PATIENT IN NO ACUTE DISTRESS. NO SOB NOTED. PATIENT BREATHING IS EVEN AND UNLABORED. PATIENT ON CARDIAC MONITORING READING SINUS RHYTHM HR 70. PATIENT BED IS LOCKED AND IN LOWEST POSITION. CALL LIGHT WITHIN REACH. SAFETY PRECAUTIONS IN PLACE. WILL CONTINUE TO MONITOR.
[2019-12-05] MEDS ORDERED: HYDR-4077 PO (07:50)
[2019-12-05 08:00] VITALS: BP 146/76
--- NOTE | 2019-12-05 14:54 | NUR ---
MAINTENANCE REPAIRER NOTE PATIENT IS ALERT AND ORIENTED AND STATES REFUSAL TO HISTORY OF DIABETES. CHECKED WITH [employer] TO VERIFY AND PATIENT STATED HE DOES NOT HAVE DIABETES AND DOES NOT PERFORM BLOOD SUGAR CHECKS AT HOME.
[2019-12-05 16:00] VITALS: BP 150/82
[2019-12-05] MEDS ORDERED: hydrALAZINE HCL 50 MG TABLET PO PRN (16:30)
[2019-12-05] MEDS ORDERED: DIPHENOXYLATE HCL/ATROP SULF 1 UDTAB TABLET PO PRN (16:30)
[2019-12-05] MEDS: SEVELAMER CARBONATE 800 MG TABLET PO SCH (17:07)
--- NOTE | 2019-12-05 17:35 | NUR ---
BABY FORMULA WORKER NOTE PATIENT TOLERATING CLEAR LIQUID DIET WELL. PATIENT REQUESTING TO UPGRADE DIET. SPOKE WITH DR. BOOTH AND PER MD HOOD TO UPGRADE DIET TO SOFT DIET. WILL FOLLOW THROUGH WITH NEW ORDER.
--- NOTE | 2019-12-05 18:14 | NUR ---
SUPERVISOR WINDING DEPARTMENT CLOSING NOTE PATIENT IN BED RESTING COMFORTABLY. PATIENT IN NO ACUTE DISTRESS. NO SOB NOTED. PATIENT BREATHING IS EVEN AND UNLABORED. PATIENT ON CARDIAC MONITORING READING SINUS RHYTHM HR 79. PATIENT KEPT CLEAN, DRY AND COMFORTABLE THROUGHOUT SHIFT. PATIENT NEEDS AND CONCERNS ADDRESSED. SAFETY PRECAUTIONS IN PLACE. PATIENT BED ALARM IS ON. PATIENT BED IS LOCKED AND IN LOWEST POSITION. CALL LIGHT WITHIN REACH. WILL ENDORSE CARE TO PM SHIFT FOR BO.
--- NOTE | 2019-12-05 19:29 | NUR ---
MUSIC THEORY TEACHER RECEIVE PT A/O X 3, ON CARDIAC MONITORING SR 82 HR IN TELE MONITOR, NO S/S OF DISTRESS, SAFETY MEASURES IN PLACE. WILL CONT TO MONITOR.
[2019-12-05 19:59] VITALS: BP 166/95
[2019-12-05 20:00] VITALS: BP 154/77
--- NOTE | 2019-12-05 21:16 | NUR ---
upon admin of lactulose due HS pt refused per pt"i dont want lactulose at this time". despite explaining risks and benefits offered 3 times pt refused.
[2019-12-06] VITALS: BP_SYST 129; BP_SYST 147; BP_DIAS 72; BP_DIAS 76
[2019-12-06 00:14] VITALS: BP 147/76
[2019-12-06] MEDS: LACTULOSE 10 G/15 ML UDC (PYXIS) PO SCH ×3 (01:00→08:43)
--- NOTE | 2019-12-06 01:00 | NUR ---
PT REFUSING LACTULOSE PO DUE 0100 DESPITE EXPLAINING RISKS AND BENEFITS OFFERED 3 TIMES PT REFUSED
[2019-12-06 04:00] VITALS: BP 147/71
--- NOTE | 2019-12-06 05:00 | NUR ---
PT REFUSING LACTULOSE PO DUE 0500 DESPITE EXPLAINING RISKS AND BENEFITS OFFERED 3 TIMES PT REFUSED
[2019-12-06 06:26] LABS: BASOPHILS # (AUTO) 0.1 /CMM (0.0-0.2); BASOPHILS % (AUTO) 1.3 % (0.0-2.0); EOSINOPHILS % (AUTO) 6.3 % (0.0-6.0); HEMATOCRIT 33 % (39-51); HEMOGLOBIN 11.1 g/dL (13.5-17.5); LYMPHOCYTES # (AUTO) 1.9 /CMM (0.8-4.8); LYMPHOCYTES % (AUTO) 32.4 % (20.0-44.0); MEAN CORPUSCULAR HGB CONC 33 g/dl (31.0-36.0); MEAN CORPUSCULAR VOLUME 95 fL (80-96); MONOCYTES % (AUTO) 17.1 % (2.0-12.0); NEUTROPHILS # (AUTO) 2.5 /CMM (1.8-8.9); NEUTROPHILS % (AUTO) 42.9 % (43.0-81.0); PLATELET COUNT (AUTO) 138 /CMM (150-450); RED BLOOD CELL COUNT(AUTO) 3.53 MIL/uL (4.5-6.0); WHITE BLOOD COUNT (AUTO) 5.9 K/uL (4.3-11.0)
--- NOTE | 2019-12-06 06:40 | NUR ---
PAPER PRODUCTS INSPECTOR PT SLEPT WELL, MONITORED ACCORDINGLY, ON SHIPPING SPECIALIST SR 78 HR, NEEDS ATTENDED AND ANTICIPATED, KEPT CLEAN, DRY AND COMFORTABLE. AM CARE RENDERED, NO C/O OF PAIN. SAFETY MEASURES AT ALL TIMES. WILL ENDORSE NEXT SHIFT POC.
[2019-12-06 06:57] LABS: CALCIUM, SERUM 9.3 mg/dL (8.5-10.1); POTASSIUM 4.5 mmol/L (3.5-5.1)
[2019-12-06 06:58] LABS: BILIRUBIN,TOTAL 0.6 mg/dL (0.2-1.0); PHOSPHORUS 6.1 mg/dL (2.5-4.9)
[2019-12-06 06:59] LABS: ALBUMIN 3.1 g/dL (3.4-5.0); TOTAL PROTEIN, SERUM 6.9 g/dL (6.4-8.2)
[2019-12-06 07:07] LABS: CREATININE 7.7 mg/dL (0.6-1.3)
--- NOTE | 2019-12-06 07:20 | NUR ---
MOTION PICTURE SET WORKER OPENING NOTES RECEIVED PT IN BED, ASLEEP, EASILY AROUSED, A/OX3-4. PT TOLERATING RA WITH NO ACUTE RESPIRATORY DISTRESS NOTED. PT DENIES ANY PAIN OR DISCOMFORT AT THE TIME. PT DENIES ANY CONCERNS OR QUESTIONS WELL. ON TELEMONITONING SR 80. PIV TO RFA G20, FLUSHED WITH NS, INTACT AND OPERATIONAL. PASCUAL HD ACCESS NOTED WELL. PT KEPT COMFORTABLE IN BED. CALL LIGHT KEPT WITHIN REACH. PT'S BED IN LOWEST, LOCKED POSITION WITH SRX3. WILL CONTINUE PLAN OF CARE.
[2019-12-06 08:00] VITALS: BP 153/78
[2019-12-06 08:27] VITALS: BP 153/78
[2019-12-06] MEDS: SEVELAMER CARBONATE 800 MG TABLET PO SCH (08:27)
--- NOTE | 2019-12-06 08:44 | NUR ---
MS RN NOTES RN SPSOKE TO HOSPITALIST//GO DUE TO PT'S CONCERNED OF BEING DISCHARGE TODAY AND REFUSED LACTULOSE. PER MD, OKAY TO BE DISCHARGE HOME TODAY. CHARGE NURSE/GRICELDA MADE AWARE WELL. ORDER TO BE PLACED.
[2019-12-06] MEDS ORDERED: ASPIRIN 81 MG TAB.CHEW PO SCH (09:00)
[2019-12-06] MEDS ORDERED: LISINOPRIL (20MG) 20 MG TABLET PO SCH (09:00)
[2019-12-06] MEDS ORDERED: VIT B CMPLX 3/FA/VIT C/BIOTIN 1 TAB TABLET PO SCH (09:00)
--- NOTE | 2019-12-06 12:42 | NUR ---
MS RN NOTES ENDORSED BO/DISCHARGE TO RN/VANITA.
--- NOTE | 2019-12-06 14:00 | NUR ---
PCB DESIGNER NOTES PATIENT DISCHARGE AT THIS TIME GOING HOME. PATIENT STABLE, V/S WNL, REFUSED PAIN. MED RECONCILIATION AND DISCHARGE ORDER REVIEWED AND EXPLAINED TO THE PATIENT. PATIENT VERBALIZED UNDERSTANDING. BELONGING WITH THE PATIENT. PATIENT SIGN PAPERWORK, WILL FOLLOW PRIMARY MD. PAPERWORK HANDED TO THE PATIENT. ESCORTED PATIENT TO THE LOBBY FOR SAFETY. PATIENT DEVIL TENDER BY TRANSPORTER PHONE # [phone]. BROTHER NAME HARSHAL AWARE OF DISCHARGE PLANING.
== END 2019-12-06 13:30 | disposition home or self-care (01) | DRG 279 ==
LOC: ER 00:46 → TELE 03:34
PROVIDERS: ADMIT Internal Medicine; ATTEND Internal Medicine
PROC: 5A1D70Z Performance of Urinary Filtration, Intermittent, Less than 6 Hours Per Day (ICD-10-PCS; principal; 2019-12-05)
DX: K72.00 Acute and subacute hepatic failure without coma (principal); E11.22 Type 2 diabetes mellitus with diabetic chronic kidney disease; I12.0 Hypertensive chronic kidney disease with stage 5 chronic kidney disease or end stage renal disease; K72.10 Chronic hepatic failure without coma; E11.610 Type 2 diabetes mellitus with diabetic neuropathic arthropathy; E87.2 Acidosis; N18.6 End stage renal disease; Z99.2 Dependence on renal dialysis; R19.7 Diarrhea, unspecified; Z89.512 Acquired absence of left leg below knee; D63.1 Anemia in chronic kidney disease; Q78.9 Osteochondrodysplasia, unspecified; Z87.11 Personal history of peptic ulcer disease; K74.60 Unspecified cirrhosis of liver; E86.1 Hypovolemia
CPT/HCPCS: 36415; 71045-TC; 80048-TC; 80053-TC; 80076-TC; 82140-TC; 83690-TC; 84100-TC; 84484-TC; 85025-TC; 86706; 87081-TC; 87340; 90935-TC; G0378; J7030; J7040

== ENCOUNTER 2019-12-22 07:37 | Inpatient (IN) | payer OTHER ==
[~2019-12-22] VITALS: Ht 172.7 cm; Wt 73.9 kg
[2019-12-22] VITALS (19 sets, daily range): BP systolic 95–165; BP diastolic 57–96
[~2019-12-22 07:37] MED LIST changes: -AMLO10TA7 PO; +HYDR-4077 PO; -LACT10SO PO; -LEVO500T2 PO; -METR500T PO; -Prosource PO; -RIFA550T PO; -TERA2CAP4 PO
[2019-12-22] MEDS ORDERED: METOCLOPRAMIDE HCL 10 MG/2 ML VIAL IV ONE (08:00)
[2019-12-22] MEDS ORDERED: METOCLOPRAMIDE HCL 10 MG/2 ML VIAL ONE (08:06)
--- NOTE | 2019-12-22 08:14 | NUR ---
patient came in to the er c/o headache and fever last night, s/p dialysis today. On room air, breathing evenly and unlabored. ambulatory with steady gait using cane. connected to the monitor and pulse ox. kept comfortable, will continue to monitor accordingly.
[2019-12-22 08:35] LABS: BASOPHILS # (AUTO) 0.1 /CMM (0.0-0.2); BASOPHILS % (AUTO) 1.3 % (0.0-2.0); EOSINOPHILS % (AUTO) 2.3 % (0.0-6.0); HEMATOCRIT 34 % (39-51); HEMOGLOBIN 11.5 g/dL (13.5-17.5); MEAN CORPUSCULAR HGB CONC 34 g/dl (31.0-36.0); MEAN CORPUSCULAR VOLUME 94 fL (80-96); MONOCYTES # (AUTO) 1.6 /CMM (0.1-1.30); MONOCYTES % (AUTO) 16.4 % (2.0-12.0); PLATELET COUNT (AUTO) 199 /CMM (150-450); RED BLOOD CELL COUNT(AUTO) 3.63 MIL/uL (4.5-6.0)
[2019-12-22] MEDS ORDERED: hydrALAZINE HCL IV 20 MG VIAL ONE ×2 (08:39→09:32)
[2019-12-22] MEDS ORDERED: MORPHINE SULFATE INJ 4 MG/ML DISP.SYRIN ONE (08:39)
[2019-12-22] MEDS ORDERED: KETOROLAC TROMETHAMINE INJ 30 MG/ML VIAL ONE (08:39)
[2019-12-22 08:42] LABS: CALCIUM, SERUM 9.8 mg/dL (8.5-10.1); CREATININE 6.3 mg/dL (0.6-1.3); POTASSIUM 4.2 mmol/L (3.5-5.1)
[2019-12-22] MEDS: LISINOPRIL (20MG) 20 MG TABLET PO SCH ×2 (08:45→13:21)
[2019-12-22 08:48] LABS: ALBUMIN 3.5 g/dL (3.4-5.0); BILIRUBIN,DIRECT 0.3 mg/dL (0.0-0.2); BILIRUBIN,TOTAL 1.2 mg/dL (0.2-1.0); TOTAL PROTEIN, SERUM 8.1 g/dL (6.4-8.2)
--- NOTE | 2019-12-22 08:55 | NUR ---
wheeled patient via [facility] for ct
[2019-12-22] MEDS ORDERED: MORPHINE SULFATE INJ 2 MG/ML DISP.SYRIN IV ONE (09:00)
[2019-12-22] MEDS ORDERED: KETOROLAC TROMETHAMINE INJ 30 MG/ML VIAL IV ONE (09:00)
[2019-12-22] MEDS ORDERED: hydrALAZINE HCL IV 20 MG VIAL IV ONE (09:00)
--- NOTE | 2019-12-22 09:08 | NUR ---
patient came back from ct
[2019-12-22] MEDS ORDERED: NICARDIPINE IN DEXTROSE,ISO-OS 200 ML IV ONE (09:39)
--- NOTE | 2019-12-22 09:51 | NUR ---
TEXTED DR. HUIZAR FOR MRI APPROVAL.
[2019-12-22] MEDS ORDERED: NICARDIPINE HCL 40 MG in IV NS 0.9% 184 ML IV PRN (10:00)
--- NOTE | 2019-12-22 10:15 | NUR ---
Held nicardipine drip due to bp 110/49 MD made aware. Will continue to monitor accordingly.
--- NOTE | 2019-12-22 10:27 | NUR ---
spoke to John CHÁVEZ from [facility] and update given
[2019-12-22] MEDS: LEVETIRACETAM (500MG) 1,000 MG in IV NS 0.9% 100 ML IV SCH ×2 (10:30→21:20)
[2019-12-22] MEDS ORDERED: ONDANSETRON HCL/PF 4 MG/2 ML VIAL IVP PRN (11:00)
[2019-12-22] MEDS ORDERED: TRAZODONE 50 MG TABLET PO PRN (11:00)
[2019-12-22] MEDS ORDERED: ACETAMINOPHEN 325 MG TABLET PO PRN (11:00)
[2019-12-22] MEDS ORDERED: HYDROCODONE/APAP 5/325MG 1 EACH TABLET PO PRN (11:00)
[2019-12-22] MEDS ORDERED: MAGNESIUM HYDROXIDE 30 ML UDC PO PRN (11:00)
[2019-12-22] MEDS ORDERED: DOCUSATE SODIUM 100 MG CAPSULE PO PRN (11:00)
[2019-12-22] MEDS ORDERED: Z GUARD REMEDY 2 OZ OINT TP PRN (11:00)
[2019-12-22] MEDS ORDERED: DIPHENOXYLATE HCL/ATROP SULF 1 UDTAB TABLET PO PRN (11:00)
[2019-12-22] MEDS ORDERED: hydrALAZINE HCL IV 20 MG VIAL IV PRN (11:00)
[2019-12-22] MEDS ORDERED: MAG HYDROX/AL HYDROX/SIMETH 30 ML UDC PO PRN (11:00)
--- NOTE | 2019-12-22 11:34 | NUR ---
report given to Sharmila RN for harley.
--- NOTE | 2019-12-22 12:20 | NUR ---
RN NOTES RECEIVED PATIENT FROM ER VIA KEVIN, PATIENT ALERT AND ORIENTED X 4, ABLE TO RESPOND APPROPRIATELY. ABLE TO FOLLOW COMMANDS. NOT ON ANY FORM OF DISTRESS. BREATHING UNLABORED.SATING FINE. NO COMPLAINTS OF PAIN AT THIS TIME. PATIENT TRANSFERRED TO THE BED, ATTACHED TO MONITOR. SKIN ASSESSMENT DONE, SKIN NOTED TO BE INTACT.PATIENT MADE COMFORTABLE AND WARMTH IN BED. ORIENTED TO THE UNIT. ENCOURAGE TO CALL FOR HELP/ASSISTANCE. SAFETY MEASURES PUT IN PLACE. CALL LIGHT PLACE WITHIN REACH. WILL CONTINUE TO MONITOR PATIENT ACCORDINGLY
--- NOTE | 2019-12-22 12:40 | NUR ---
Wheeled patient via gurney accompanied by RN and emt in no distress. RN at bedside to assume care.
[2019-12-22] MEDS: LACTULOSE 10 G/15 ML UDC (PYXIS) PO SCH (13:20)
[2019-12-22] MEDS: VIT B CMPLX 3/FA/VIT C/BIOTIN 1 TAB TABLET PO SCH (13:21)
--- NOTE | 2019-12-22 19:30 | NUR ---
RN NOTES RECEIVED PATIENT ALERT AND ORIENTED X 4, TAJIK SPEAKING, NO COGNITIVE DEFICIT NOTED, ABLE TO FOLLOW COMMANDS, AT RA BREATHING EVEN AND UNLABORED, NO SOB/ ACUTE DISTRESS NOTED, DENIES PAIN OR DISCOMFORT, NSR IN TELE MONITOR WITH HR IN 70S AT THIS TIME, INSTRUCTED TO CALL FOR ASSISTANCE, SAFETY MEASURES IN PLACE, CALL LIGHT PLACE WITHIN REACH, WILL CONTINUE TO MONITOR CLOSELY.
--- NOTE | 2019-12-22 19:30 | NUR ---
RN NOTES ENDORSED FOR CONTINUITY OF CARE. PATIENT REMAINED ALERT AND ORIENTED X4. ABLE TO FOLLOW COMMANDS. NOT ON ANY FORM OF DISTRESS. BREATHING UNLABORED. NO COMPLAINTS OF PAIN AT THIS TIME. SAFETY MEASURES IN PLACE. CALL LIGHT WITHIN REACH
[2019-12-23] VITALS (16 sets, daily range): BP systolic 112–179; BP diastolic 52–86
[2019-12-23 04:50] LABS: BASOPHILS # (AUTO) 0.1 /CMM (0.0-0.2); BASOPHILS % (AUTO) 0.8 % (0.0-2.0); EOSINOPHILS % (AUTO) 4.2 % (0.0-6.0); HEMATOCRIT 31 % (39-51); HEMOGLOBIN 10.5 g/dL (13.5-17.5); LYMPHOCYTES # (AUTO) 1.8 /CMM (0.8-4.8); MEAN CORPUSCULAR HGB CONC 34 g/dl (31.0-36.0); MEAN CORPUSCULAR VOLUME 94 fL (80-96); MONOCYTES # (AUTO) 1.5 /CMM (0.1-1.30); MONOCYTES % (AUTO) 18.9 % (2.0-12.0); NEUTROPHILS # (AUTO) 4.1 /CMM (1.8-8.9); NEUTROPHILS % (AUTO) 53.1 % (43.0-81.0); PLATELET COUNT (AUTO) 189 /CMM (150-450); WHITE BLOOD COUNT (AUTO) 7.7 K/uL (4.3-11.0)
[2019-12-23 05:00] LABS: CALCIUM, SERUM 9.4 mg/dL (8.5-10.1); MAGNESIUM 2.6 mg/dL (1.8-2.4); POTASSIUM 5.2 mmol/L (3.5-5.1)
[2019-12-23 05:15] LABS: CREATININE 8.1 mg/dL (0.6-1.3); PHOSPHORUS 8.3 mg/dL (2.5-4.9)
[2019-12-23 05:37] LABS: LYMPHOCYTES % (MANUAL) 23 % (16-48); NEUTROPHILS % (MANUAL) 65 (42-76)
[2019-12-23 05:38] LABS: MONOCYTES % (MANUAL) 12 % (0-11.0)
--- NOTE | 2019-12-23 06:30 | NUR ---
RN CLOSING NOTES PATIENT SLEEPING AT THIS TIME BUT AROUSES EASILY TO VERBAL STIMULI, ALERT AND ORIENTED X 4, SINGAPOREAN SPEAKING, NO CHANGE IN LOC DURING THE NIGHT, NO C/O HEADACHE, ANY PAIN OR DISCOMFORT, DENIES N/V/D/SOB, ABLE TO FOLLOW COMMANDS, AT RA BREATHING EVEN AND UNLABORED, NO SOB/ ACUTE DISTRESS NOTED THROUGHOUT THE NIGHT, CONTINUE NSR IN TELE MONITOR WITH HR MOSTLY 70S, SAFETY MEASURES IN PLACE, CALL LIGHT PLACE WITHIN REACH, WILL CONTINUE ENDORSE CONTINUITY OF CARE TO ONCOMING NURSE.
--- NOTE | 2019-12-23 07:30 | NUR ---
rn notes received patient asleep but awaken by verbal stimuli, awake alert and orientedx4. no changes on level of consciousness. able to follow command. breathing unlabored. tolerating room air. no complaints of pain. independently moving in bed. able to make needs known. call light within reach. safety measures in place. encourage to call for help/assistance.
[2019-12-23] MEDS: LACTULOSE 10 G/15 ML UDC (PYXIS) PO SCH (08:13)
[2019-12-23] MEDS: LISINOPRIL (20MG) 20 MG TABLET PO SCH ×2 (08:13→08:14)
[2019-12-23] MEDS: VIT B CMPLX 3/FA/VIT C/BIOTIN 1 TAB TABLET PO SCH (08:14)
--- NOTE | 2019-12-23 08:50 | NUR ---
RN NOTES PATIENT TRANSFERRED TO ROOM 327 VIA ACLS PROTOCOL. BEDSIDE REPORT GIVEN TO NAOMI FATIMA. HANDS OFF
[2019-12-23] MEDS ORDERED: LEVETIRACETAM (500MG) 1,000 MG in IV NS 0.9% 100 ML IV SCH (09:00)
[2019-12-23] MEDS ORDERED: SEVELAMER CARBONATE 800 MG TABLET PO SCH (09:00)
--- NOTE | 2019-12-23 09:30 | NUR ---
received pt. via bed from icu.hooked up to tele sr rate of 85.no complaints offered.call marie within reach.rn to hang [employer].pt. oriented to rm.
--- NOTE | 2019-12-23 10:00 | NUR ---
states has a slight headache.
[2019-12-23] MEDS ORDERED: LISI-603 PO (10:12)
--- NOTE | 2019-12-23 11:34 | NUR ---
Social service consult requested by MD for possible stroke. Per MD notes and chart review, pt is a 49-year-old male with a past medical history significant for HD dependent ESRD, Diabetes, L BKA, hepatic encephalopathy s/p TIPS procedure, and HTN. Patient was seen at his regular hemodialysis this morning complaining of worsening headache with lethargy and generalized weakness over the past 2 or 3 days. Patient was sent to the emergency room where CT revealed 17 mm hemorrhagic lesion present within the dorsal right temporal lobe with mild associated vasogenic edema. Neurosurgeon Dr. Huerta was consulted and suggested patient be admitted to ICU for neuro monitoring and repeat imaging in the morning. Patient started on nitroprusside drip and blood pressure responded well, symptoms have improved since initial treatment. In lieu of Covid, BAG MACHINE SET UP OPERATOR contacted the pt. via phone for an assessment. Pt is primarily Maltese speaking but speaks Burundian as well. Pt is alert and oriented x 4. Pt reports he will be discharged home to his brother's today. Pt is cooperative and pleasant. Pt is ambulatory for his ADLs and IALDs. BAG MACHINE SET UP OPERATOR conducted PHq-9 intervention assessment. Pt's scored a 2. Pt reports, he had trouble sleeping the past few days but slept well last night. Pt denies any depression or anxiety. Pt denies suicidal and homicidal ideations and visual/auditory hallucinations at this time. Pt feels a bit tired overall. No other issues or complaints. Pt appears to be eager to go home today. BAG MACHINE SET UP OPERATOR provided pt with active listening, emotional support and supportive counseling. BAG MACHINE SET UP OPERATOR is available, if needed. BAG MACHINE SET UP OPERATOR consulted with pt's RN Lauren as well. manager ent Kaylyn has been updated regarding this consult.
--- NOTE | 2019-12-23 12:44 | NUR ---
PT. REFUSING DVT STOCKINGS.
--- NOTE | 2019-12-23 16:00 | NUR ---
dr. wells in and discharge order written with parameters.
--- NOTE | 2019-12-23 17:00 | NUR ---
taken via w/c to lobby.all papers signed.belonging sheet signed.hep lock out.aware of rxs to take.to follow up with pmd and dialysis.
--- NOTE | 2019-12-23 17:05 | NUR ---
pt. waiting in lobby for ride with blankbook stitching machine operator.transport here.
== END 2019-12-23 16:45 | disposition home or self-care (01) | DRG 44 ==
LOC: ER 07:41 → ICU 11:11 → MED 12-23 09:25
PROVIDERS: ADMIT Internal Medicine; ATTEND Internal Medicine
DX: I61.9 Nontraumatic intracerebral hemorrhage, unspecified (principal); G93.6 Cerebral edema; E11.51 Type 2 diabetes mellitus with diabetic peripheral angiopathy without gangrene; E11.22 Type 2 diabetes mellitus with diabetic chronic kidney disease; I12.0 Hypertensive chronic kidney disease with stage 5 chronic kidney disease or end stage renal disease; K72.10 Chronic hepatic failure without coma; N18.6 End stage renal disease; N25.0 Renal osteodystrophy; I16.1 Hypertensive emergency; R40.2412 Glasgow coma scale score 13-15, at arrival to emergency department; D63.1 Anemia in chronic kidney disease; Z87.11 Personal history of peptic ulcer disease; Z99.2 Dependence on renal dialysis; Z89.512 Acquired absence of left leg below knee; I61.2 Nontraumatic intracerebral hemorrhage in hemisphere, unspecified; R40.2413 Glasgow coma scale score 13-15, at hospital admission; R29.700 NIHSS score 0; Z79.82 Long term (current) use of aspirin
CPT/HCPCS: 36415; 70450-TC; 70551-TC; 71045-TC; 80048-TC; 80076-TC; 82140-TC; 82465-TC; 83735-TC; 84100-TC; 84484-TC; 85025-TC; 85610-TC; 85730-TC; 87081-TC; 97116-TC; 97530-TC; G0378; J0360; J1885; J1953; J2270; J2765; J7030; J7040

== ENCOUNTER 2020-01-14 06:50 | Emergency (ER) | payer OTHER ==
[~2020-01-14] VITALS: Ht 172.7 cm; Wt 73.9 kg
[~2020-01-14 06:50] MED LIST changes: -ASPI-1169 PO
--- NOTE | 2020-01-14 07:02 | NUR ---
PATIENT CAME TO ER BED 4 C/O FEELING "WEAK AND CONFUSED" SINCE THIS MORNING. PATIENT UNDERWENT DIALYSIS SINCE THIS MORNING AND COMPLETED THE DIALYSIS. AAOX4. NO SOB. BREATHING EVENLY AND UNLABORED ON ROOM AIR. CONNECTED TO MONITOR.
--- NOTE | 2020-01-14 07:20 | NUR ---
ASSESSED PT ON BED AWAKE AND ALERT, NOT IN RESPIRATORY DISTRESS, HOOKED TO ORDERLIES TEACHER, KEPT RESTED AND COMFORTABLE, WILL CONTINUE TO MONITOR.
--- NOTE | 2020-01-14 07:25 | NUR ---
IV LINE ESTABLISHED BLOOD DRAWN AND SENT TO LAB.
[2020-01-14 07:32] LABS: BASOPHILS # (AUTO) 0.1 /CMM (0.0-0.2); BASOPHILS % (AUTO) 0.9 % (0.0-2.0); EOSINOPHILS % (AUTO) 3.4 % (0.0-6.0); HEMATOCRIT 32 % (39-51); HEMOGLOBIN 10.8 g/dL (13.5-17.5); LYMPHOCYTES # (AUTO) 1.8 /CMM (0.8-4.8); LYMPHOCYTES % (AUTO) 24.9 % (20.0-44.0); MEAN CORPUSCULAR HGB CONC 34 g/dl (31.0-36.0); MEAN CORPUSCULAR VOLUME 95 fL (80-96); MONOCYTES # (AUTO) 1.3 /CMM (0.1-1.30); MONOCYTES % (AUTO) 17.9 % (2.0-12.0); NEUTROPHILS # (AUTO) 3.9 /CMM (1.8-8.9); NEUTROPHILS % (AUTO) 52.9 % (43.0-81.0); PLATELET COUNT (AUTO) 186 /CMM (150-450); RED BLOOD CELL COUNT(AUTO) 3.37 MIL/uL (4.5-6.0); WHITE BLOOD COUNT (AUTO) 7.4 K/uL (4.3-11.0)
[2020-01-14 07:35] LABS: CALCIUM, SERUM 9.3 mg/dL (8.5-10.1); CREATININE 5.1 mg/dL (0.6-1.3); POTASSIUM 3.6 mmol/L (3.5-5.1)
[2020-01-14 07:40] LABS: ALBUMIN 3.3 g/dL (3.4-5.0); BILIRUBIN,DIRECT 0.3 mg/dL (0.0-0.2); TOTAL PROTEIN, SERUM 7.5 g/dL (6.4-8.2)
--- NOTE | 2020-01-14 07:40 | NUR ---
PT IS WHEELED TO CT SCAN VIA [facility].
[2020-01-14] MEDS ORDERED: LACTULOSE 10 G/15 ML UDC (PYXIS) ONE (07:57)
[2020-01-14] MEDS ORDERED: LACTULOSE 10 G/15 ML UDC (PYXIS) PO ONE (08:00)
[2020-01-14 08:02] LABS: EOSINOPHILS % (MANUAL) 2 % (0-4); LYMPHOCYTES % (MANUAL) 23 % (16-48); MONOCYTES % (MANUAL) 16 % (0-11.0); NEUTROPHILS % (MANUAL) 59 (42-76)
--- NOTE | 2020-01-14 08:34 | NUR ---
Patient discharged to home in stable condition. Written and verbal after care instructions given. Patient verbalizes understanding of instruction.
[2020-01-14 08:39] VITALS: BP 138/77
== END 2020-01-14 08:40 | disposition home or self-care (01) ==
LOC: ER 06:54
DX: K72.90 Hepatic failure, unspecified without coma (principal); I12.0 Hypertensive chronic kidney disease with stage 5 chronic kidney disease or end stage renal disease; E11.22 Type 2 diabetes mellitus with diabetic chronic kidney disease; N18.6 End stage renal disease; R51 Headache; Z99.2 Dependence on renal dialysis; Z89.512 Acquired absence of left leg below knee; Z60.2 Problems related to living alone; Z79.899 Other long term (current) drug therapy
CPT/HCPCS: 36415; 70450-TC; 71045-TC; 80048-TC; 80076-TC; 82140-TC; 85025-TC

== ENCOUNTER 2020-04-03 17:17 | Inpatient (IN) | payer OTHER ==
[~2020-04-03] VITALS: Ht 175.3 cm; Wt 78.0 kg
[2020-04-03] MEDS ORDERED: IV NS 0.9% 500 ML BAG IV ONE (17:30)
[2020-04-03 17:55] LABS: BASOPHILS # (AUTO) 0.1 /CMM (0.0-0.2); EOSINOPHILS % (AUTO) 3.2 % (0.0-6.0); HEMATOCRIT 33 % (39-51); LYMPHOCYTES # (AUTO) 1.9 /CMM (0.8-4.8); LYMPHOCYTES % (AUTO) 37.1 % (20.0-44.0); MEAN CORPUSCULAR HGB CONC 33 g/dl (31.0-36.0); MEAN CORPUSCULAR VOLUME 94 fL (80-96); MONOCYTES # (AUTO) 0.8 /CMM (0.1-1.30); MONOCYTES % (AUTO) 15.5 % (2.0-12.0); NEUTROPHILS # (AUTO) 2.2 /CMM (1.8-8.9); NEUTROPHILS % (AUTO) 43.2 % (43.0-81.0); PLATELET COUNT (AUTO) 151 /CMM (150-450); RED BLOOD CELL COUNT(AUTO) 3.53 MIL/uL (4.5-6.0)
--- NOTE | 2020-04-03 17:57 | NUR ---
Patient awake alert non distress hooked in the monitor ,gown ,ekg,lab draw
[2020-04-03 18:07] LABS: ALBUMIN 3.3 g/dL (3.4-5.0); BILIRUBIN,DIRECT 0.2 mg/dL (0.0-0.2); BILIRUBIN,TOTAL 0.7 mg/dL (0.2-1.0); POTASSIUM 5.2 mmol/L (3.5-5.1); TOTAL PROTEIN, SERUM 7.1 g/dL (6.4-8.2)
[2020-04-03 18:09] LABS: CREATININE 7.6 mg/dL (0.6-1.3)
[2020-04-03 18:55] LABS: EOSINOPHILS % (MANUAL) 2 % (0-4); LYMPHOCYTES % (MANUAL) 48 % (16-48); MONOCYTES % (MANUAL) 16 % (0-11.0); NEUTROPHILS % (MANUAL) 34 (42-76)
--- NOTE | 2020-04-03 19:20 | NUR ---
REPORT RECEIVED FROM NAOMI HO FOR BO
--- NOTE | 2020-04-03 19:35 | NUR ---
COVID SWAB COLLECTED AND SENT TO LAB
--- NOTE | 2020-04-03 19:38 | NUR ---
PT REASSESSED AND CHANGED. NO ACUTE DISTRESS NOTED. PT HAS NO MEDICAL COMPLAINTS AT THIS TIME. WILL CONTINUE TO MONITOR
--- NOTE | 2020-04-03 19:51 | NUR ---
DR. ZURITA SPEAKING WITH DR. MALONE
--- NOTE | 2020-04-03 20:20 | NUR ---
REPORT GIVEN TO NAOMI TREADWELL FOR BO
[2020-04-03 20:30] VITALS: BP 134/68
--- NOTE | 2020-04-03 20:40 | NUR ---
PT TRANSFERRED TO ROOM VIA ACLS PROTOCOL
[2020-04-03 20:45] VITALS: BP 134/68
[2020-04-03] MEDS ORDERED: SEVE800T7 PO (22:31)
[2020-04-03] MEDS ORDERED: LISI-603 PO (22:31)
[2020-04-03] MEDS ORDERED: LACT10SO PO (22:31)
[2020-04-03] MEDS ORDERED: CARV25TA PO (22:31)
[2020-04-03] MEDS ORDERED: HYDR-4075 PO (22:31)
[2020-04-03] MEDS ORDERED: ASPI-1169 PO (22:31)
[2020-04-03] MEDS ORDERED: TRAZODONE 50 MG TABLET PO PRN (23:00)
[2020-04-03] MEDS ORDERED: hydrALAZINE HCL 25 MG TABLET PO PRN (23:30)
[2020-04-03] MEDS ORDERED: MORPHINE SULFATE IR 15 MG TABLET PO PRN (23:30)
[2020-04-03] MEDS ORDERED: ONDANSETRON HCL/PF 4 MG/2 ML VIAL IVP PRN (23:30)
[2020-04-03] MEDS ORDERED: DEXTROSE 50%-WATER 50 ML DISP.SYRIN IV PRN (23:30)
[2020-04-04] VITALS: BP 137/68
[2020-04-04 04:02] VITALS: BP 124/62
[2020-04-04] MEDS: LACTULOSE 10 G/15 ML UDC (PYXIS) PO SCH ×4 (05:00→21:00)
--- NOTE | 2020-04-04 06:16 | NUR ---
METAL TANK ERECTOR NOTES AWAKE & RESPONSIVE. NOT IN ANY DISTRESS. NO SOB NOTED. DENIES ANY PAIN OR DISCOMFORT AT THIS TIME. WITH IV-HL PATENT & INTACT. CALL LIGHT WITHIN REACH. BED IN LOWEST POSITION. SR UP X 3 WITH BED ALARM ON FOR SAFETY. WILL ENDORSE TO NEXT SHIFT.
[2020-04-04] MEDS: BLOOD SUGAR DIAGNOSTIC 1 EACH STRIP IN SCH ×4 (06:36→21:48)
[2020-04-04 07:02] LABS: BASOPHILS # (AUTO) 0.1 /CMM (0.0-0.2); BASOPHILS % (AUTO) 1.1 % (0.0-2.0); EOSINOPHILS % (AUTO) 4.9 % (0.0-6.0); HEMATOCRIT 33 % (39-51); HEMOGLOBIN 11.1 g/dL (13.5-17.5); LYMPHOCYTES # (AUTO) 2.8 /CMM (0.8-4.8); LYMPHOCYTES % (AUTO) 44.9 % (20.0-44.0); MEAN CORPUSCULAR HGB CONC 34 g/dl (31.0-36.0); MEAN CORPUSCULAR VOLUME 93 fL (80-96); MONOCYTES # (AUTO) 0.9 /CMM (0.1-1.30); MONOCYTES % (AUTO) 14.7 % (2.0-12.0); NEUTROPHILS # (AUTO) 2.2 /CMM (1.8-8.9); NEUTROPHILS % (AUTO) 34.4 % (43.0-81.0); PLATELET COUNT (AUTO) 153 /CMM (150-450); RED BLOOD CELL COUNT(AUTO) 3.51 MIL/uL (4.5-6.0); WHITE BLOOD COUNT (AUTO) 6.3 K/uL (4.3-11.0)
[2020-04-04 07:21] LABS: ALBUMIN 3.1 g/dL (3.4-5.0); BILIRUBIN,TOTAL 0.6 mg/dL (0.2-1.0); CALCIUM, SERUM 9.4 mg/dL (8.5-10.1); MAGNESIUM 2.9 mg/dL (1.8-2.4); PHOSPHORUS 6.2 mg/dL (2.5-4.9); TOTAL PROTEIN, SERUM 6.7 g/dL (6.4-8.2)
[2020-04-04 07:25] LABS: THYROID STIMULATING HORMONE 2.02 uIU/mL (0.358-3.74)
[2020-04-04 07:29] LABS: CREATININE 8.4 mg/dL (0.6-1.3)
--- NOTE | 2020-04-04 07:30 | NUR ---
TELE/RN NOTE THE PATIENT IS RECEIVED IN BED. THE PATIENT IS ALERT AND ORIENTED X4. IN ROOM AIR AND DENIES SOB. RESPIRATION REGULAR AND UNLABORED. DENIES PAIN. THE PATIENT IS IN NO APPARENT DISTRESS. RAC G 20 PATENT AND SALINE LOCKED. BED LOW AND LOCKED. SIDE RAILS UP X3. CALL LIGHT WITHIN REACH. WILL CONTINUE TO MONITOR. Addendum: 04/04/20 at 0815 by MYLA MATOS RN TELE/RN NOTE EXTERNAL TELE BOX READING IS SR 68.
[2020-04-04 08:00] VITALS: BP 141/63
[2020-04-04 08:06] VITALS: BP 141/69
[2020-04-04] MEDS: SEVELAMER CARBONATE 800 MG TABLET PO SCH (08:55)
[2020-04-04] MEDS: VITAMIN B COMP W-C 1 TAB TABLET PO SCH (08:55)
[2020-04-04] MEDS: ASPIRIN 81 MG TAB.CHEW PO SCH (08:55)
[2020-04-04] MEDS: CARVEDILOL 6.25 MG TABLET PO SCH ×2 (08:56→21:42)
[2020-04-04] MEDS: PANTOPRAZOLE 40 MG TABLET.DR PO SCH (08:58)
[2020-04-04] MEDS: LISINOPRIL (20MG) 20 MG TABLET PO SCH ×2 (09:00→16:37)
--- NOTE | 2020-04-04 10:35 | NUR ---
MS/RN NOTE THE PATIENT COMPLAINS OF BOTH EYES DRYNESS AND ITCHING. DR HINDS IS MADE AWARE AND RECEIVED AN ORDER OF ARTIFICIAL TEARS Q8HR PRN FOR EACH EYE. NOTED AND CARRIED OUT. WILL ADMINISTER THE MEDICATION SOON PHARMACY DELIVERS IT TO THE FLOOR.
[2020-04-04] MEDS ORDERED: POLYVINYL ALCOHOL 15 ML BOTTLE EACHEYE PRN (11:00)
[2020-04-04] MEDS ORDERED: POLYVINYL ALCOHOL/POVIDONE 0.4 ML DROPERETTE EACHEYE PRN (11:30)
--- NOTE | 2020-04-04 12:02 | NUR ---
MS/RN NOTE THE PATIENT`S BLOOD SUGAR IS 185 BUT THE PATIENT REFUSES INSULIN DESPITE EXPLAINING RISKS AND BENEFITS.
[2020-04-04] MEDS: INSULIN REGULAR, HUMAN 100 UNIT/ML 3 ML VIAL SQ PRN ×3 (12:03→21:53)
[2020-04-04 16:33] VITALS: BP 164/83
--- NOTE | 2020-04-04 18:42 | NUR ---
MS/RN NOTE THE PATIENT IS ALERT AND ORIENTED X4. IN ROOM AIR AND SATURATION IS AT 96%. DENIES SOB. RESPIRATION REGULAR AND UNLABORED. DENIES PAIN. THE PATIENT TOLERATED HD WELL AND 500 ML WAS TAKEN OUT. RAC G 20 PATENT AND SALINE LOCKED. BED LOW AND LOCKED. SIDE RAILS UP X3. CALL LIGHT WITHIN REACH. WILL ENDORSE TO TELEPHONE SOLICITOR SUPERVISOR.
--- NOTE | 2020-04-04 19:05 | NUR ---
MS/RN OPENING NOTES: RECEIVED PATIENT ALERT AND ORIENTED X4. IN ROOM AIR AND SATURATING ABOVE 96%. DENIES SOB. RESPIRATION REGULAR AND UNLABORED. DENIES PAIN. RAC #20G PATENT AND INTACT, SALINE LOCKED. SAFETY MEASURES IN PLACE. BED LOW AND LOCKED. SIDE RAILS UP X3. CALL LIGHT WITHIN REACH. WILL CONTINUE TO MONITOR ACCORDINGLY.
[2020-04-04 20:00] VITALS: BP 174/86
[2020-04-05] VITALS (7 sets, daily range): BP systolic 143–162; BP diastolic 74–87
--- NOTE | 2020-04-05 00:50 | NUR ---
MS/RN NOTES: PT COMPLAINED OF BEING LIGHT HEADED AND SWEATY. CHECKED BS. INITIAL CHECK IS 57. WILL RECHECK IN A FEW MINUTES.
--- NOTE | 2020-04-05 00:58 | NUR ---
MS/RN NOTES: 2ND BLOOD SUGAR CHECK IS 40. GAVE PT 2 APPLE JUICE IN THE MEAN TIME. CHARGE NURSE AWARE.
--- NOTE | 2020-04-05 01:10 | NUR ---
MS/RN NOTES: BLOOD SUGAR CHECK IS 49 AT THIS TIME (0106). ADMINISTERED D50 ORDERED PRN FOR BS <60 (0110). DR. MALONE AWARE. CHARGE NURSE AWARE. PT IS STABLE AT THIS TIME, EATING. WILL RECHECK BLOOD SUGAR IN 30 MINUTES.
--- NOTE | 2020-04-05 01:43 | NUR ---
MS/RN NOTES: BLOOD SUGAR CHECK NOW 151. PT STATES HE FEELS BETTER. WILL CONTINUE TO MONITOR.
--- NOTE | 2020-04-05 03:00 | NUR ---
MS/RN NOTES: PATIENT STATES HE FEELS WEIRD AND WANTS TO GET HIS BLOOD SUGAR CHECKED AGAIN. BS CHECK 173. WILL CONTINUE TO MONITOR.
--- NOTE | 2020-04-05 03:15 | NUR ---
MS/RN NOTES: PT COMPLAINS THAT HE "FEELS WEIRD". CHECKED BP, 185/91 HR:73. ADMINISTERED HYDRALAZINE 25MG PRN PO FOR SBP ABOVE 150. TOLERATED WELL. WILL RECEHCK BP IN 1 HOUR. WILL CONTINUE TO MONITOR PT ACCORDINGLY.
--- NOTE | 2020-04-05 04:15 | NUR ---
MS/RN NOTES: HYDRALAZINE EFFECTIVE. BP NOW 151/78 HR:81. WILL KEEP MONITORING.
[2020-04-05] MEDS: LACTULOSE 10 G/15 ML UDC (PYXIS) PO SCH ×3 (05:07→21:00)
[2020-04-05] MEDS: INSULIN REGULAR, HUMAN 100 UNIT/ML 3 ML VIAL SQ PRN ×2 (06:30→21:45)
[2020-04-05] MEDS: BLOOD SUGAR DIAGNOSTIC 1 EACH STRIP IN SCH ×4 (06:30→21:45)
--- NOTE | 2020-04-05 06:30 | NUR ---
MS/RN NOTES: PT BLOOD SUGAR CHECK IS 181. REFUSED REGULAR INSULIN. EDUCATED ON RISKS AND BENEFITS X3. STILL INSISTED ON REFUSING. PT STABLE. WILL CONTINUE TO MONITOR.
[2020-04-05 07:09] LABS: BASOPHILS # (AUTO) 0.1 /CMM (0.0-0.2); BASOPHILS % (AUTO) 1.1 % (0.0-2.0); EOSINOPHILS % (AUTO) 3.5 % (0.0-6.0); HEMATOCRIT 34 % (39-51); HEMOGLOBIN 11.2 g/dL (13.5-17.5); LYMPHOCYTES # (AUTO) 2.2 /CMM (0.8-4.8); LYMPHOCYTES % (AUTO) 36.3 % (20.0-44.0); MEAN CORPUSCULAR HGB CONC 33 g/dl (31.0-36.0); MEAN CORPUSCULAR VOLUME 93 fL (80-96); MONOCYTES # (AUTO) 0.6 /CMM (0.1-1.30); MONOCYTES % (AUTO) 10.8 % (2.0-12.0); NEUTROPHILS # (AUTO) 2.9 /CMM (1.8-8.9); NEUTROPHILS % (AUTO) 48.3 % (43.0-81.0); PLATELET COUNT (AUTO) 146 /CMM (150-450); RED BLOOD CELL COUNT(AUTO) 3.62 MIL/uL (4.5-6.0)
[2020-04-05 07:22] LABS: CALCIUM, SERUM 8.4 mg/dL (8.5-10.1); MAGNESIUM 2.7 mg/dL (1.8-2.4); PHOSPHORUS 5.9 mg/dL (2.5-4.9); POTASSIUM 4.6 mmol/L (3.5-5.1)
--- NOTE | 2020-04-05 07:22 | NUR ---
MS/RN CLOSING NOTES: PATIENT REMAINS ALERT AND ORIENTED X4. ON ROOM AIR AND SATURATING ABOVE 96%. DENIES SOB. RESPIRATION REGULAR AND UNLABORED. DENIES PAIN. RAC #20G PATENT AND INTACT, SALINE LOCKED. FISTULA ON THE PASCUAL. PROSTHETIC LEG AT BEDSIDE. SAFETY MEASURES IN PLACE. BED LOW AND LOCKED. SIDE RAILS UP X3. CALL LIGHT WITHIN REACH. ENDORSED TO DAY SHIFT RNGONZALO FOR BO.
--- NOTE | 2020-04-05 07:27 | NUR ---
MS/RN NOTES: NAOMI FERNANDEZ MADE AWARE OF THE SON WANTING TO BE CONTACTED BY THE DOCTOR LIBRARY CIRCULATION CLERK FOR MORNING. TOLD DAY SHIFT RN TO F/U WITH LIBRARY CIRCULATION CLERK DOCTOR TO CONTACT THE SON.
--- NOTE | 2020-04-05 07:51 | NUR ---
MS/RN Opening note A/O X4, vital signs stable, no fever noted. Denies any pain or discomfort at this time. Heplock to right AC flushing well, no signs of infiltration seen. Blood drawn this morning, awaiting morning ammonia level. All questions and concerns addressed, will continue to monitor and ensure safety.
[2020-04-05 07:59] LABS: CREATININE 7.6 mg/dL (0.6-1.3)
[2020-04-05] MEDS: VITAMIN B COMP W-C 1 TAB TABLET PO SCH (08:34)
[2020-04-05] MEDS: PANTOPRAZOLE 40 MG TABLET.DR PO SCH (08:34)
[2020-04-05] MEDS: ASPIRIN 81 MG TAB.CHEW PO SCH (08:34)
[2020-04-05] MEDS: SEVELAMER CARBONATE 800 MG TABLET PO SCH (08:35)
[2020-04-05] MEDS: CARVEDILOL 6.25 MG TABLET PO SCH ×2 (08:35→21:41)
[2020-04-05] MEDS: LISINOPRIL (20MG) 20 MG TABLET PO SCH ×2 (08:36→17:20)
--- NOTE | 2020-04-05 10:48 | NUR ---
MS/RN S/B PT Seen by PT - recommending that patient be issued with new single point cane prior to discharge.
--- NOTE | 2020-04-05 11:45 | NUR ---
MS/RN Blood sugar Blood sugar 173, refused insulin coverage.
--- NOTE | 2020-04-05 14:27 | NUR ---
MS/RN Rounds Patient resting comfortably at this time, no new needs or concerns.
--- NOTE | 2020-04-05 18:34 | NUR ---
MS/RN End note Patient remains in stable condition. Awaiting review by Dr Booth. Will endorse to shiftman.
--- NOTE | 2020-04-05 22:00 | NUR ---
MS/RN NOTES: PT BLOOD SUGAR IS 262 FOR HS. PATIENT REFUSED INSULIN PER SLIDING SCALE. EDUCATED PT ON RISKS & BENEFITS X3. STILL REFUSED. WILL CONTINUE TO MONITOR.
--- NOTE | 2020-04-06 | NUR ---
MS/RN NOTES: PT COMPLAINED OF HAVING SORE THROAT FROM DRINKING ICE WATER DURING DAY SHIFT. PT IS REQUESTING SOMETHING HIS THROAT. MANNY MADISON MADE THOMPSON. PER DAWIT "NONE". INFORMED PATIENT. OFFERED PT WARM WATER, REFUSED. WILL CONTINUE TO MONITOR.
[2020-04-06] MEDS: LACTULOSE 10 G/15 ML UDC (PYXIS) PO SCH ×3 (05:42→20:42)
[2020-04-06] MEDS: BLOOD SUGAR DIAGNOSTIC 1 EACH STRIP IN SCH ×4 (06:38→21:11)
[2020-04-06] MEDS: INSULIN REGULAR, HUMAN 100 UNIT/ML 3 ML VIAL SQ PRN ×2 (06:38→21:11)
[2020-04-06 07:14] LABS: BASOPHILS # (AUTO) 0.1 /CMM (0.0-0.2); BASOPHILS % (AUTO) 0.9 % (0.0-2.0); EOSINOPHILS % (AUTO) 5.7 % (0.0-6.0); HEMATOCRIT 29 % (39-51); LYMPHOCYTES # (AUTO) 3.3 /CMM (0.8-4.8); LYMPHOCYTES % (AUTO) 45.6 % (20.0-44.0); MEAN CORPUSCULAR HGB CONC 34 g/dl (31.0-36.0); MEAN CORPUSCULAR VOLUME 94 fL (80-96); MONOCYTES # (AUTO) 1.1 /CMM (0.1-1.30); MONOCYTES % (AUTO) 15.1 % (2.0-12.0); NEUTROPHILS # (AUTO) 2.3 /CMM (1.8-8.9); NEUTROPHILS % (AUTO) 32.7 % (43.0-81.0); PLATELET COUNT (AUTO) 133 /CMM (150-450); RED BLOOD CELL COUNT(AUTO) 3.13 MIL/uL (4.5-6.0); WHITE BLOOD COUNT (AUTO) 7.2 K/uL (4.3-11.0)
--- NOTE | 2020-04-06 07:23 | NUR ---
MS/RN Opening note Patient received from production shift supervisor. A/O X4, vital signs stable, no pain or discomfort at this time. Ambulating in room using cane, has steady gait. Heplock flushing well with saline, no signs of infiltration. Bed in low setting, call light within reach, will continue to monitor and ensure safety.
[2020-04-06 07:48] LABS: ALBUMIN 2.9 g/dL (3.4-5.0); BILIRUBIN,TOTAL 0.6 mg/dL (0.2-1.0); CALCIUM, SERUM 9.2 mg/dL (8.5-10.1); MAGNESIUM 2.8 mg/dL (1.8-2.4); POTASSIUM 4.5 mmol/L (3.5-5.1); TOTAL PROTEIN, SERUM 6.2 g/dL (6.4-8.2)
[2020-04-06 07:51] LABS: CREATININE 8.9 mg/dL (0.6-1.3)
[2020-04-06 08:00] VITALS: BP 150/77
[2020-04-06] MEDS: ASPIRIN 81 MG TAB.CHEW PO SCH (08:22)
[2020-04-06] MEDS: SEVELAMER CARBONATE 800 MG TABLET PO SCH (08:22)
[2020-04-06] MEDS: VITAMIN B COMP W-C 1 TAB TABLET PO SCH (08:22)
[2020-04-06] MEDS: PANTOPRAZOLE 40 MG TABLET.DR PO SCH (08:22)
[2020-04-06] MEDS: CARVEDILOL 6.25 MG TABLET PO SCH ×2 (08:23→20:43)
[2020-04-06] MEDS: LISINOPRIL (20MG) 20 MG TABLET PO SCH ×2 (08:23→16:21)
--- NOTE | 2020-04-06 10:00 | NUR ---
MS/RN LABS Morning labs reviewed: -ammonia 146 aware.
--- NOTE | 2020-04-06 13:00 | NUR ---
MS/RN Ammonia level Ammonia level 146, lactulose administered as ordered.
--- NOTE | 2020-04-06 14:54 | NUR ---
MS/RN S/B Dr Booth Seen by Dr Booth - labs ordered for tomorrow. Continue with current medications and orders.
[2020-04-06 16:00] VITALS: BP 145/67
--- NOTE | 2020-04-06 16:21 | NUR ---
MS/foreign language instructor held 5p blood pressure medication held as patient scheduled for HDX.
--- NOTE | 2020-04-06 18:23 | NUR ---
MS/RN End note Patient currently receiving HDX. Remains in stable condition, will endorse to night clerk.
--- NOTE | 2020-04-06 19:10 | NUR ---
RN medsurg opening notes Received Pt from morning nurse. Pt is laying in bed comfortably watching TV. Pt is alert and orientedX4. Respiration is normal. No SOB. No S/S of distress noted. IV sites at R forearm# 20 is clean, intact and flush without resistance. LUE fistula is clean, intact and patent. Safety precautions is maintained. Bed at low position, brakes locked, side railsupX2 and call light is within reach. Will continue to monitor.
[2020-04-06 20:00] VITALS: BP 155/78
--- NOTE | 2020-04-06 20:48 | NUR ---
RN medsurg notes Pt refused lactulose 20G/30 ml. Made aware risks and benefits and also informed Pt's ammonia level. Pt keep refusing. Charge nurse also informed Pt. Pt keep refusing. Pt stated "I just want to sleep! and comeback at 0500!" Will continue to monitor.
--- NOTE | 2020-04-06 21:12 | NUR ---
RN medsurg notes Pt blood sugar HS was 187. Pt refused insulin. Made aware risks and benefits. Offered multiple times. Pt keep refusing. Pt stated "I don't take insulin!" Will continue to monitor.
[2020-04-07] MEDS: LACTULOSE 10 G/15 ML UDC (PYXIS) PO SCH ×2 (05:00→12:42)
[2020-04-07] MEDS: BLOOD SUGAR DIAGNOSTIC 1 EACH STRIP IN SCH ×2 (06:35→12:18)
[2020-04-07 06:36] LABS: BASOPHILS # (AUTO) 0.1 /CMM (0.0-0.2); BASOPHILS % (AUTO) 1.2 % (0.0-2.0); EOSINOPHILS % (AUTO) 5.9 % (0.0-6.0); HEMATOCRIT 31 % (39-51); HEMOGLOBIN 10.6 g/dL (13.5-17.5); LYMPHOCYTES # (AUTO) 3.2 /CMM (0.8-4.8); LYMPHOCYTES % (AUTO) 48.6 % (20.0-44.0); MEAN CORPUSCULAR HGB CONC 34 g/dl (31.0-36.0); MEAN CORPUSCULAR VOLUME 93 fL (80-96); MONOCYTES % (AUTO) 15.3 % (2.0-12.0); NEUTROPHILS # (AUTO) 1.9 /CMM (1.8-8.9); PLATELET COUNT (AUTO) 119 /CMM (150-450); RED BLOOD CELL COUNT(AUTO) 3.38 MIL/uL (4.5-6.0); WHITE BLOOD COUNT (AUTO) 6.5 K/uL (4.3-11.0)
--- NOTE | 2020-04-07 06:53 | NUR ---
RN medsurg closing notes Pt is resting in bed comfortably. Pt is alert and orientedX4. Respiration is normal. No SOB. No S/S of distress noted. VS is stable. Afebrile. Routine meds were given as ordered. IV sites at R forearm# 20 is clean, intact and flush without resistance. LUE fistula is clean, intact and patent. Kept Pt clean, dry and comfortable. All needs met and attended. Safety precautions is maintained. Bed at low position, brakes locked, side railsupX2 and call light is within reach. Will endorse to morning nurse for BO.
[2020-04-07 07:05] LABS: CALCIUM, SERUM 9.6 mg/dL (8.5-10.1); CREATININE 7.2 mg/dL (0.6-1.3); MAGNESIUM 2.6 mg/dL (1.8-2.4); PHOSPHORUS 6.6 mg/dL (2.5-4.9); POTASSIUM 4.6 mmol/L (3.5-5.1)
--- NOTE | 2020-04-07 07:25 | NUR ---
MS RN NOTES RECEIVED PT IN BED, ASLEEP, EASILY AROUSED, A/O X4. PT TOLERATING RA, WITH NO ACUTE RESPIRATORY DISTRESS NOTED. PT DENIES ANY PAIN OR DISCOMFORT AT THIS TIME. PT DENIES ANY QUESTIONS AT THIS TIME. PIV TO RFA G20, FLUSHED WITH NS, INTACT AND OPERATIONAL. LUE AV FISTULA NOTED FOR HD ACCESS. PT KEPT COMFORTABLE IN BED. CALL LIGHT KEPT WITHIN REACH. PT'S BED IN LOWEST, LOCKED POSITION, WITH SR X3. LEFT PROSTHETIC LEG PRESENT AT BEDSIDE. WILL CONTINUE PLAN OF CARE.
[2020-04-07 08:00] VITALS: BP 157/82
[2020-04-07] MEDS: PANTOPRAZOLE 40 MG TABLET.DR PO SCH (08:32)
[2020-04-07] MEDS: SEVELAMER CARBONATE 800 MG TABLET PO SCH (08:32)
[2020-04-07] MEDS: ASPIRIN 81 MG TAB.CHEW PO SCH (08:32)
[2020-04-07] MEDS: VITAMIN B COMP W-C 1 TAB TABLET PO SCH (08:32)
[2020-04-07 08:34] VITALS: BP 157/82
[2020-04-07] MEDS: LISINOPRIL (20MG) 20 MG TABLET PO SCH (08:34)
[2020-04-07] MEDS: CARVEDILOL 6.25 MG TABLET PO SCH (08:34)
[2020-04-07] MEDS ORDERED: LACT10SO PO (09:53)
--- NOTE | 2020-04-07 11:20 | NUR ---
MS RN NOTES RN SPOKE TO SAIRA/TIMOTHY, REGARDING DISCHARGE. PT PREFERS TO GO [place] WITH NO HOME HEALTH. PT ALSO PREFERS TO LEAVE AT 2PM. WILL CONTINUE TO MONITOR.
--- NOTE | 2020-04-07 14:15 | NUR ---
MS RN NOTES PT GOING HOME, A/O X4. PT TOLERATING RA, WITH NO ACUTE RESPIRATORY DISTRESS NOTED. PT DENIES ANY PAIN OR DISCOMFORT AT THE TIME OF DISCHARGE. PIV TO RFA G20, REMOVED AND APPLIED DRY DRESSING. LUE AV FISTULA NOTED FOR HD ACCESS. PT'S DISCHARGE INSTRUCTIONS AND INVENTORY LIST REVIEWED AND SIGNED BY PT. SKIN INTACT, NO PICTURES TAKEN AND FILED. ALL NEEDS AND CARE ATTENDED. TRANSPORT ARRANGED BY CM/TIMOTHY. VS STABLE AND RECORDED. HOSPITALIST/KR AWARE OF DISCHARGE PT ELFT THE UNIT AT 1415. CHARGE NURSE AWARE WELL. PT ESCORTED TO THE LOBBY VIA WHEELCHAIR.
== END 2020-04-07 14:00 | disposition home or self-care (01) | DRG 279 ==
LOC: ER 17:27 → TELE 20:12 → MED 04-04 10:24
PROVIDERS: ADMIT Internal Medicine; ATTEND Internal Medicine
PROC: 5A1D70Z Performance of Urinary Filtration, Intermittent, Less than 6 Hours Per Day (ICD-10-PCS; principal; 2020-04-04)
DX: K72.90 Hepatic failure, unspecified without coma (principal); I12.0 Hypertensive chronic kidney disease with stage 5 chronic kidney disease or end stage renal disease; N18.6 End stage renal disease; E11.22 Type 2 diabetes mellitus with diabetic chronic kidney disease; D63.8 Anemia in other chronic diseases classified elsewhere; Z99.2 Dependence on renal dialysis; E44.0 Moderate protein-calorie malnutrition; Z87.11 Personal history of peptic ulcer disease; Z89.512 Acquired absence of left leg below knee; N25.0 Renal osteodystrophy; E88.09 Other disorders of plasma-protein metabolism, not elsewhere classified; Z68.25 Body mass index [BMI] 25.0-25.9, adult; G92 Toxic encephalopathy; Z79.82 Long term (current) use of aspirin; K74.60 Unspecified cirrhosis of liver; R93.0 Abnormal findings on diagnostic imaging of skull and head, not elsewhere classified
CPT/HCPCS: 36415; 70450-TC; 71045-TC; 76700-TC; 80048-TC; 80053-TC; 80061-TC; 80076-TC; 82140-TC; 82962-TC; 83540-TC; 83735-TC; 84100-TC; 84443-TC; 84484-TC; 85025-TC; 86706; 86803; 87081-TC; 87340; 90935-TC; 97116-TC; 97530-TC; G0378; J1815; J7030

== ENCOUNTER 2020-05-03 06:32 | Emergency (ER) | payer OTHER ==
[~2020-05-03] VITALS: Ht 172.7 cm; Wt 71.7 kg
[~2020-05-03 06:32] MED LIST changes: +CARV25TA PO; +HYDR-4075 PO; +LACT10SO PO
--- NOTE | 2020-05-03 06:40 | NUR ---
[facility] FOR C/O H/A AND R EYE PAIN 1.5 HOUR AFTER STARTING THE HD. PER PT HIS DIALYSIS SESSION USUALLY LASTS ABOUT 3 HRS AND HE RECEIVES THAT ON ,,S. PT HAS A PASCUAL SHUNT W/ C/D/I DRESSING , NO BLEEDING. PT DENIED N/V OR SOB. PT WAS ASSISTED TO BED 9 AND PLACED ON A MONITOR .VSS.
[2020-05-03] MEDS ORDERED: TETRACAINE HCL 0.5% OPHTALMIC 15 ML BOTTLE OP ONE (07:00)
[2020-05-03] MEDS ORDERED: FLUORESCEIN SODIUM OPHTH 1 EA STRIP OP ONE (07:00)
--- NOTE | 2020-05-03 07:04 | NUR ---
BLOOD COLLECTED AND SENT TO LAB
[2020-05-03 07:06] LABS: BASOPHILS # (AUTO) 0.1 /CMM (0.0-0.2); BASOPHILS % (AUTO) 1.5 % (0.0-2.0); EOSINOPHILS % (AUTO) 6.1 % (0.0-6.0); HEMATOCRIT 26 % (39-51); HEMOGLOBIN 8.7 g/dL (13.5-17.5); LYMPHOCYTES # (AUTO) 1.9 /CMM (0.8-4.8); LYMPHOCYTES % (AUTO) 32.8 % (20.0-44.0); MEAN CORPUSCULAR HGB CONC 34 g/dl (31.0-36.0); MEAN CORPUSCULAR VOLUME 94 fL (80-96); MONOCYTES # (AUTO) 0.6 /CMM (0.1-1.30); MONOCYTES % (AUTO) 10.4 % (2.0-12.0); NEUTROPHILS # (AUTO) 2.8 /CMM (1.8-8.9); NEUTROPHILS % (AUTO) 49.2 % (43.0-81.0); PLATELET COUNT (AUTO) 141 /CMM (150-450); RED BLOOD CELL COUNT(AUTO) 2.73 MIL/uL (4.5-6.0); WHITE BLOOD COUNT (AUTO) 5.7 K/uL (4.3-11.0)
[2020-05-03 07:18] LABS: CALCIUM, SERUM 9.6 mg/dL (8.5-10.1); CREATININE 7.3 mg/dL (0.6-1.3); POTASSIUM 3.7 mmol/L (3.5-5.1)
[2020-05-03] MEDS ORDERED: METOCLOPRAMIDE HCL 10 MG/2 ML VIAL ONE (07:30)
[2020-05-03] MEDS ORDERED: ACETAMINOPHEN 325 MG TABLET PO ONE (07:30)
[2020-05-03] MEDS ORDERED: diphenhydrAMINE HCL 50 MG/ML VIAL IV ONE (07:30)
[2020-05-03] MEDS ORDERED: ACETAMINOPHEN 325 MG TABLET ONE (07:30)
[2020-05-03] MEDS ORDERED: diphenhydrAMINE HCL 50 MG/ML VIAL ONE (07:30)
[2020-05-03] MEDS ORDERED: METOCLOPRAMIDE HCL 10 MG/2 ML VIAL IV ONE (07:30)
--- NOTE | 2020-05-03 07:49 | NUR ---
ASSESSED PT ON BED. PT IS AAOX3, NOT IN RESPIRATORY DISTRESS, HOOKED TO [place]INDCHILL ADMINISTRATOR, KEPT RESTED AND COMFORTABLE. WILL CONTINUE TO MONITOR.
[2020-05-03] MEDS ORDERED: LORAZEPAM INJ 2 MG/ML VIAL IV ONE (08:00)
[2020-05-03] MEDS ORDERED: LORAZEPAM INJ 2 MG/ML VIAL ONE (08:02)
--- NOTE | 2020-05-03 08:17 | NUR ---
IV removed. Catheter intact and site benign. Pressure and 4x4 applied to site. No bleeding noted. Patient discharged to home in stable condition. Written and verbal after care instructions given. Patient verbalizes understanding of instruction.
[2020-05-03 08:18] VITALS: BP 143/81
== END 2020-05-03 08:18 | disposition home or self-care (01) ==
LOC: ER 06:33
DX: R51 Headache (principal); H57.11 Ocular pain, right eye; H10.89 Other conjunctivitis; H54.40 Blindness, one eye, unspecified eye; I12.0 Hypertensive chronic kidney disease with stage 5 chronic kidney disease or end stage renal disease; E11.22 Type 2 diabetes mellitus with diabetic chronic kidney disease; N18.6 End stage renal disease; E72.20 Disorder of urea cycle metabolism, unspecified; Z99.2 Dependence on renal dialysis; Z89.512 Acquired absence of left leg below knee; Z89.511 Acquired absence of right leg below knee; Z98.890 Other specified postprocedural states; Z79.899 Other long term (current) drug therapy
CPT/HCPCS: 36415; 70450; 71045; 80048; 82962; 85025; 85730; 93005; 96374; 96375; 99285; J1200; J2060; J2765

== ENCOUNTER 2020-05-05 06:49 | Emergency (ER) | payer OTHER ==
[~2020-05-05] VITALS: Ht 172.7 cm; Wt 71.7 kg
--- NOTE | 2020-05-05 07:00 | NUR ---
PT AAOX4. UNIQUERA 86 FROM DIALYSIS CENTER C/O HEADACHE. PT STATING R SIDED HEADACHE AND POINTING AT HIS R EYE. PT PLACED ON MONITOR AND PULSE OX. AWAITING MD FOR EVAL AND ORDERS. NO ACUTE DISTRESS NOTED. Addendum: 05/05/20 at 0811 by EVANGELISTA Pt is awake alert and oriented times 4. Currently sleeping.
--- NOTE | 2020-05-05 07:18 | NUR ---
LABS COLLECTED AND SENT.
[2020-05-05] MEDS ORDERED: ONDANSETRON HCL/PF 4 MG/2 ML VIAL IVP ONE (07:30)
[2020-05-05] MEDS ORDERED: HYDROMORPHONE INJ 2 MG/ML DISP.SYRIN IV ONE (07:30)
[2020-05-05 07:38] LABS: BASOPHILS # (AUTO) 0.1 /CMM (0.0-0.2); BASOPHILS % (AUTO) 1.2 % (0.0-2.0); EOSINOPHILS % (AUTO) 3.8 % (0.0-6.0); HEMATOCRIT 25 % (39-51); HEMOGLOBIN 8.4 g/dL (13.5-17.5); LYMPHOCYTES # (AUTO) 1.6 /CMM (0.8-4.8); LYMPHOCYTES % (AUTO) 24.7 % (20.0-44.0); MEAN CORPUSCULAR HGB CONC 34 g/dl (31.0-36.0); MEAN CORPUSCULAR VOLUME 94 fL (80-96); MONOCYTES # (AUTO) 0.7 /CMM (0.1-1.30); MONOCYTES % (AUTO) 10.3 % (2.0-12.0); NEUTROPHILS # (AUTO) 3.9 /CMM (1.8-8.9); PLATELET COUNT (AUTO) 150 /CMM (150-450); RED BLOOD CELL COUNT(AUTO) 2.64 MIL/uL (4.5-6.0); WHITE BLOOD COUNT (AUTO) 6.5 K/uL (4.3-11.0)
[2020-05-05 08:03] LABS: CALCIUM, SERUM 9.3 mg/dL (8.5-10.1); POTASSIUM 3.4 mmol/L (3.5-5.1)
[2020-05-05 08:09] LABS: ALBUMIN 3.7 g/dL (3.4-5.0); BILIRUBIN,DIRECT 0.2 mg/dL (0.0-0.2); BILIRUBIN,TOTAL 0.8 mg/dL (0.2-1.0); TOTAL PROTEIN, SERUM 7.7 g/dL (6.4-8.2)
[2020-05-05 08:54] VITALS: BP 123/89
--- NOTE | 2020-05-05 08:54 | NUR ---
Patient asleep but arousable vitals taken filed with in normal limits patient agrees to seepmd in 2 days ,Yocasta ( short haul driver has the Dc instruction form and prescription )
== END 2020-05-05 08:57 | disposition home or self-care (01) ==
LOC: ER 06:50
DX: R51 Headache (principal); I12.0 Hypertensive chronic kidney disease with stage 5 chronic kidney disease or end stage renal disease; E11.22 Type 2 diabetes mellitus with diabetic chronic kidney disease; N18.6 End stage renal disease; E72.20 Disorder of urea cycle metabolism, unspecified; Z99.2 Dependence on renal dialysis; Z89.512 Acquired absence of left leg below knee; Z98.890 Other specified postprocedural states; Z79.899 Other long term (current) drug therapy
CPT/HCPCS: 36415; 70450; 80048; 80076; 84484; 85025; 85730; 93005; 96374; 96375; 99285; J1170; J2405

== ENCOUNTER 2020-05-12 07:09 | Emergency (ER) | payer OTHER ==
[~2020-05-12] VITALS: Ht 172.7 cm; Wt 72.6 kg
--- NOTE | 2020-05-12 07:20 | NUR ---
JORDY, FROM DIALYSIS CENTER, C/O HEADACHE X 2-3 WEEKS, RECEIVED 1HR HD TREATMENT. PATIENT A/OX4, BREATHING EVEN AND UNLABORED, ATTACHED TO THE SEA KAYAKING GUIDE. KEPT COMFORTABLE.
[2020-05-12] MEDS ORDERED: HYDROMORPHONE 1 MG/1 ML DISP.SYRIN ONE (07:34)
[2020-05-12] MEDS: HYDROMORPHONE 1 MG/1 ML DISP.SYRIN IM ONE (07:39)
[2020-05-12] MEDS: TETRACAINE HCL 2% OPHTHALIC 30 ML BOTTLE RIGHTEYE ONE (07:39)
--- NOTE | 2020-05-12 09:22 | NUR ---
Patient discharged to home in stable condition. Written and verbal after care instructions given. Patient verbalizes understanding of instruction.
[2020-05-12 09:25] VITALS: BP 148/72
== END 2020-05-12 09:12 | disposition home or self-care (01) ==
LOC: ER 07:11
DX: R51 Headache (principal); H54.40 Blindness, one eye, unspecified eye; I12.0 Hypertensive chronic kidney disease with stage 5 chronic kidney disease or end stage renal disease; E11.22 Type 2 diabetes mellitus with diabetic chronic kidney disease; N18.6 End stage renal disease; Z99.2 Dependence on renal dialysis; E72.20 Disorder of urea cycle metabolism, unspecified; Z89.512 Acquired absence of left leg below knee; Z98.890 Other specified postprocedural states; Z79.899 Other long term (current) drug therapy
CPT/HCPCS: 96372; 99283; J1170

== ENCOUNTER 2020-09-22 03:47 | Inpatient (IN) | payer OTHER ==
[~2020-09-22] VITALS: Ht 172.7 cm; Wt 72.6 kg
--- NOTE | 2020-09-22 04:00 | NUR ---
BIBS FOR C/O WEAKNESS AND DIARRHEA X 10 DAYS. DENIED V/N OR ABDOMINAL PAIN. PT W/ ESRD ON HD ON ,,S. LAST HD TWO DAYS AGO. HE IS DUE FOR HD TO DAY AT 4:00 @ [facility]. PT WAS PLACED IN ER BED 6 ON MONITOR,VSS
--- NOTE | 2020-09-22 04:08 | NUR ---
CADENCE ESTRELLA MD AT BED SIDE
[2020-09-22] MEDS ORDERED: ONDANSETRON HCL/PF 4 MG/2 ML VIAL ONE (04:12)
[2020-09-22] MEDS ORDERED: DIPHENOXYLATE HCL/ATROP SULF 1 UDTAB TABLET ONE (04:13)
[2020-09-22] MEDS ORDERED: IV NS 0.9% 1,000 ML BAG IV ONE (04:30)
[2020-09-22] MEDS ORDERED: IV NS 0.9% 500 ML BAG IV ONE (04:30)
[2020-09-22] MEDS ORDERED: ONDANSETRON HCL/PF 4 MG/2 ML VIAL IVP ONE (04:30)
[2020-09-22] MEDS ORDERED: DIPHENOXYLATE HCL/ATROP SULF 1 UDTAB TABLET PO ONE (04:30)
--- NOTE | 2020-09-22 04:34 | NUR ---
RAILROAD YARD WORKER AT BED SIDE TO DRAW BLOOD.
[2020-09-22 05:07] LABS: BASOPHILS % (AUTO) 0.4 % (0.0-2.0); EOSINOPHILS % (AUTO) 0.5 % (0.0-6.0); HEMATOCRIT 34 % (39-51); HEMOGLOBIN 11.2 g/dL (13.5-17.5); LYMPHOCYTES # (AUTO) 2.1 /CMM (0.8-4.8); LYMPHOCYTES % (AUTO) 31.4 % (20.0-44.0); MEAN CORPUSCULAR HGB CONC 33 g/dl (31.0-36.0); MEAN CORPUSCULAR VOLUME 90 fL (80-96); MONOCYTES # (AUTO) 1.2 /CMM (0.1-1.30); MONOCYTES % (AUTO) 17.5 % (2.0-12.0); NEUTROPHILS # (AUTO) 3.3 /CMM (1.8-8.9); NEUTROPHILS % (AUTO) 50.2 % (43.0-81.0); PLATELET COUNT (AUTO) 204 /CMM (150-450); RED BLOOD CELL COUNT(AUTO) 3.82 MIL/uL (4.5-6.0); WHITE BLOOD COUNT (AUTO) 6.6 K/uL (4.3-11.0)
[2020-09-22 05:25] LABS: MAGNESIUM 2.5 mg/dL (1.8-2.4); PHOSPHORUS 4.5 mg/dL (2.5-4.9)
[2020-09-22 05:28] LABS: ALBUMIN 2.8 g/dL (3.4-5.0); BILIRUBIN,DIRECT 0.3 mg/dL (0.0-0.2); BILIRUBIN,TOTAL 0.8 mg/dL (0.2-1.0); CALCIUM, SERUM 7.2 mg/dL (8.5-10.1); POTASSIUM 5.1 mmol/L (3.5-5.1); TOTAL PROTEIN, SERUM 7.3 g/dL (6.4-8.2)
--- NOTE | 2020-09-22 05:35 | NUR ---
Call from lab. Rapid covid positive.
[2020-09-22 05:43] LABS: CREATININE 13.1 mg/dL (0.6-1.3)
[2020-09-22] MEDS ORDERED: LACTULOSE 10 G/15 ML UDC (PYXIS) PO ONE (06:00)
[2020-09-22] MEDS ORDERED: LACTULOSE 10 G/15 ML UDC (PYXIS) ONE (07:01)
--- NOTE | 2020-09-22 07:30 | NUR ---
PT IN BED SLEEPING. NOT IN RESP DISTRESS. VSS
[2020-09-22] MEDS ORDERED: ATOR80TA PO (08:43)
[2020-09-22] MEDS ORDERED: MAG HYDROX/AL HYDROX/SIMETH 30 ML UDC PO PRN (11:00)
[2020-09-22] MEDS ORDERED: ZOLPIDEM TARTRATE 5 MG TABLET PO PRN (11:00)
[2020-09-22] MEDS ORDERED: Z GUARD REMEDY 2 OZ OINT TP PRN (11:00)
[2020-09-22] MEDS ORDERED: ONDANSETRON HCL/PF 4 MG/2 ML VIAL IVP PRN (11:00)
[2020-09-22] MEDS ORDERED: MAGNESIUM HYDROXIDE 30 ML UDC PO PRN (11:00)
[2020-09-22] MEDS ORDERED: HYDROCODONE/APAP 5/325MG TABLET PO PRN (11:00)
[2020-09-22] MEDS ORDERED: TRAZODONE 50 MG TABLET PO PRN (11:00)
--- NOTE | 2020-09-22 11:42 | NUR ---
REPORT GIVEN TO NAOMI CHEATHAM FOR BO
[2020-09-22 11:46] LABS: BAND % (MANUAL) 2 % (0.0-5.0); EOSINOPHILS % (MANUAL) 3 % (0-4); LYMPHOCYTES % (MANUAL) 32 % (16-48); MONOCYTES % (MANUAL) 13 % (0-11.0); NEUTROPHILS % (MANUAL) 50 (42-76)
--- NOTE | 2020-09-22 11:56 | NUR ---
PT TRASNPORTED TO UNIT ON [facility] WITH EMT AND RN AT BEDSIDE W/ ACLS PROTOCOL. NAD NOTED DURING TRANSPORT
[2020-09-22 12:00] VITALS: BP 148/80
--- NOTE | 2020-09-22 12:30 | NUR ---
DIRECTOR PERIOPERATIVE ADMITTING NOTES Patient was admitted from ED at apprx 12 noon. Patient did not have any s/s of respiratory distress. Tele monitor box placed upon arrival. Patient 02 saturation 98% on room air. Patient's initial assessment done and listed. No c/o pain or discomfort. Bed is in lowest and locked position. Bruit and thrill noted to left upper arm AV shunt. Will continue to monitor. Call light with in reach.
[2020-09-22] MEDS: HEPARIN SODIUM, PORCINE 5000 UNITS/1 ML VIAL SQ SCH ×2 (13:59→20:25)
[2020-09-22 16:00] VITALS: BP 114/57
[2020-09-22] MEDS: LACTULOSE 10 G/15 ML UDC (PYXIS) PO SCH (17:07)
--- NOTE | 2020-09-22 18:36 | NUR ---
WAREHOUSE EXAMINER CLOSING NOTES p
--- NOTE | 2020-09-22 18:37 | NUR ---
TELE-1 RN CLOSING NOTES Patient is alert and oriented. Patient does not have any s/s of respiratory distress. No c/o sob. Patient is breathing even and unlabored. 02 sat 92% on room air. IV access to right hand noted to be patent with no s/sx of infiltration. Patient's av fistula to left arm noted with bruit and thrill.Bed is in lowest and locked position. Will endorse to next shift for BO.
--- NOTE | 2020-09-22 19:10 | NUR ---
CONSULTING MANAGER OPENING NOTES: RECEIVED PT IN BED, ASLEEP, EASILY AROUSABLE. A/O X4. NO S/S OF DISTRESS NOTED. BED IN LOWEST AND LOCKED POSITION. CALL LIGHT WITHIN REACH. LEFT ARM AV SHUNT,WITH THRILL AND BRUIT NOTED, SIGN OF LEFT ARM RESTRICTION POSTED. ON ROOM AIR. PT IS ANURIC. PER RPORTS PT REFUSED THE HD TODAY. INSTRUCTED PT TO CALL FOR ASSISTANCE,PT VERBALIZED UNDERSTANDING.
[2020-09-22 20:00] VITALS: BP 127/66
[2020-09-22] MEDS: ACETAMINOPHEN 325 MG TABLET PO PRN (21:37)
[2020-09-23] VITALS: BP 138/69
[2020-09-23 04:00] VITALS: BP 126/66
--- NOTE | 2020-09-23 05:39 | NUR ---
COCOA PRESS OPERATOR CLOSING NOTES: PATIENT IN BED, ASLEEP, EASILY AROUSABLE. NO S/S OF DISTRESS NOTED. CALL LIGHT WITHIN REACH. BED ALARM ON. BED IN LOWEST AND LOCKED POSITION. PT IS SR HR OF 72 ON THE MONITOR. RESTED THROUGHOUT THE NIGHT. TYLENOL 650MG PO GIVEN AT 2130 FOR TEMP 99.8. LATEST TEMP IS 98.5. PT IS ANURIC.
[2020-09-23 07:23] LABS: CALCIUM, SERUM 7.3 mg/dL (8.5-10.1); MAGNESIUM 2.7 mg/dL (1.8-2.4); PHOSPHORUS 5.1 mg/dL (2.5-4.9); POTASSIUM 4.8 mmol/L (3.5-5.1)
[2020-09-23 07:30] LABS: BASOPHILS % (AUTO) 0.4 % (0.0-2.0); EOSINOPHILS % (AUTO) 2.1 % (0.0-6.0); HEMATOCRIT 32 % (39-51); HEMOGLOBIN 10.7 g/dL (13.5-17.5); LYMPHOCYTES # (AUTO) 2.7 /CMM (0.8-4.8); LYMPHOCYTES % (AUTO) 41.1 % (20.0-44.0); MEAN CORPUSCULAR HGB CONC 33 g/dl (31.0-36.0); MEAN CORPUSCULAR VOLUME 89 fL (80-96); MONOCYTES # (AUTO) 1.1 /CMM (0.1-1.30); MONOCYTES % (AUTO) 16.2 % (2.0-12.0); NEUTROPHILS # (AUTO) 2.6 /CMM (1.8-8.9); NEUTROPHILS % (AUTO) 40.2 % (43.0-81.0); PLATELET COUNT (AUTO) 221 /CMM (150-450); RED BLOOD CELL COUNT(AUTO) 3.62 MIL/uL (4.5-6.0); WHITE BLOOD COUNT (AUTO) 6.5 K/uL (4.3-11.0)
--- NOTE | 2020-09-23 07:36 | NUR ---
CHAIN HOOKER OPENING NOTES Patient is alert and oriented. 02 sat 95% on room air. No c/o SOB, breathing even and unlabored. IV access to right hand noted to be patent with no s/sx of infiltration. Patient's AV fistula to left arm noted with bruit and thrill. Tele Box reading SR WITH 76 BPM. Bed is in lowest and locked position. Will continue to monitor. Call liight with in reach.
[2020-09-23 08:00] VITALS: BP 134/69
[2020-09-23] MEDS: SEVELAMER CARBONATE 800 MG TABLET PO SCH (08:15)
[2020-09-23] MEDS: LACTULOSE 10 G/15 ML UDC (PYXIS) PO SCH ×2 (08:15→16:25)
[2020-09-23 08:22] LABS: CREATININE 14.9 mg/dL (0.6-1.3)
[2020-09-23] MEDS: HEPARIN SODIUM, PORCINE 5000 UNITS/1 ML VIAL SQ SCH ×2 (08:24→21:17)
--- NOTE | 2020-09-23 09:30 | NUR ---
RN OPENING NOTES Patient is noted with high BUN and is on Hemodialysis Q , SATURDAY AND SATURDAY but patient refused his . MD aware and with no new orders. Patient was to be discharged today per MD wells orders but discharged was cancelled due to patient needing his dialysis on 09/24/19.
[2020-09-23 12:00] VITALS: BP 140/71
[2020-09-23 16:00] VITALS: BP 150/73
--- NOTE | 2020-09-23 18:33 | NUR ---
TELE-1 RN CLOSING NOTES Patient currently in bed and in no acute distress. Patient does not have any s/s of respiratory distress. No c/o sob. Patient is breathing even and unlabored. 02 sat 95% on room air. IV access to right hand noted to be patent with no s/sx of infiltration. Patient's av fistula to left arm noted with bruit and thrill.Patient teaching done regarding safety and fall precautions.Bed is in lowest and locked position. Will endorse to next shift for BO.
--- NOTE | 2020-09-23 19:00 | NUR ---
RN NOTE RECEIVED PATIENT IN BED, AO X 4, ON SEMI ESTRELLA'S, IN NO S/SX OF ACUTE DISTRESS AT THIS TIME. NO SOB NOTED. PATIENT'S BREATHING IS EVEN AND UNLABORED, SATURATION AT 95% ON ROOM AIR. PATIENT ON TELE MONITOR READING SR, HR IS 87. NOTED IV SITE AT R HAND 18G, PATENT AND FLUSHING WELL, NO S/S OF INFECTION OR INFILTRATION, AV SHUNT AT L ARM, BRUIT AND THRILL PRESENT. NOTED L BKA, EXTREMITY ELEVATED IN PILLOW AND KEPT STRAIGHT. SAFETY MEASURES IMPLEMENTED. PATIENT BED ALARM IS ON. HEAD OF BED ELEVATED. BED IS LOCKED, IN LOWEST POSITION AND SIDE RAILS UP. CALL LIGHT WITHIN REACH OF THE PATIENT. WILL CONTINUE TO MONITOR AND REASSESS FOR ANY CHANGES.
[2020-09-23 20:00] VITALS: BP 156/75
[2020-09-24] VITALS: BP 140/68
[2020-09-24 04:00] VITALS: BP 140/68
[2020-09-24 06:48] LABS: BASOPHILS % (AUTO) 0.3 % (0.0-2.0); EOSINOPHILS % (AUTO) 3.1 % (0.0-6.0); HEMATOCRIT 32 % (39-51); HEMOGLOBIN 10.8 g/dL (13.5-17.5); LYMPHOCYTES # (AUTO) 2.6 /CMM (0.8-4.8); LYMPHOCYTES % (AUTO) 37.1 % (20.0-44.0); MEAN CORPUSCULAR HGB CONC 33 g/dl (31.0-36.0); MEAN CORPUSCULAR VOLUME 89 fL (80-96); MONOCYTES # (AUTO) 1.1 /CMM (0.1-1.30); MONOCYTES % (AUTO) 15.7 % (2.0-12.0); NEUTROPHILS % (AUTO) 43.8 % (43.0-81.0); PLATELET COUNT (AUTO) 244 /CMM (150-450); RED BLOOD CELL COUNT(AUTO) 3.66 MIL/uL (4.5-6.0)
--- NOTE | 2020-09-24 07:00 | NUR ---
ASSEMBLER FISHING FLOATS OPENING NOTE RECEIVED PT RESTING COMFORTABLY IN BED AT THIS TIME. PT AOX4. PT ABLE TO MAKE NEEDS KNOWN. NO SOB NOTED, NO S/S OF ANY ACUTE DISTRESS NOTED, NO C/O PAIN AT THIS TIME. PT STABLE ON RA. PT ON EXTERNAL TELE MACHINE REPAIRMAN READING SR 87. LEFT ARM AV SHUNT NOTED, BRUIT AND TRILL PRESENT. 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 IV ACCESS NOTED IN RIGHT HAND G#18, INTACT, PATENT AND FLUSHING WELL. ASPIRATIONS AND SAFETY PRECAUTIONS IN PLACE AND MAINTAINED AT ALL TIMES. BED IN LOWEST LOCKED POSITION, SIDE RAILS UP, HOB ELEVATED, TABLE AND CALL LIGHT WITHIN REACH. WILL CONTINUE TO MONITOR.
[2020-09-24 07:05] LABS: CALCIUM, SERUM 7.7 mg/dL (8.5-10.1); POTASSIUM 4.7 mmol/L (3.5-5.1)
[2020-09-24 07:09] LABS: CREATININE 16.3 mg/dL (0.6-1.3)
--- NOTE | 2020-09-24 07:28 | NUR ---
RN CLOSING NOTE PATIENT REMAINS IN ROOM IN NO SIGNS OF RESPIRATORY DISTRESS. SATURATION AT 95% ON ROOM AIR. PATIENT ON TELE MONITOR READING SR, HR IS 87. NOTED IV SITE AT R HAND 18G, PATENT AND FLUSHING WELL, NO S/S OF INFECTION OR INFILTRATION, AV SHUNT AT L ARM, BRUIT AND THRILL PRESENT. SAFETY MEASURES IMPLEMENTED, BED IN LOWEST POSITION, LOCKED, SIDE RAILS UP, CALL LIGHT WITHIN REACH. ALL NEEDS AND ORDERS ADDRESSED DURING THE SHIFT. IV ACCESS MAINTAINED INTACT, SECURED AND FLUSHING WELL. ALL DUE MEDS GIVEN ORDERED. PATIENT TOLERATED WELL. PATIENT KEPT CLEAN AND COMFORTABLE WITHIN THE SHIFT. PATIENT ENDORSED TO IMMACULATE RN FOR CONTINUATION OF CARE.
[2020-09-24 08:00] VITALS: BP 164/78
[2020-09-24] MEDS: LACTULOSE 10 G/15 ML UDC (PYXIS) PO SCH (08:49)
[2020-09-24] MEDS: SEVELAMER CARBONATE 800 MG TABLET PO SCH (08:49)
[2020-09-24] MEDS: HEPARIN SODIUM, PORCINE 5000 UNITS/1 ML VIAL SQ SCH (08:50)
[2020-09-24] MEDS: ACETAMINOPHEN 325 MG TABLET PO PRN (10:02)
--- NOTE | 2020-09-24 10:04 | NUR ---
PT C/O OF THROBBING HEAD OF 11/09. BP 112/76, HR 78, RR 18, T 98.0. PER PT REQUEST, TYLENOL 650MG PO Q6HR PRN ADMINISTERED AT THIS TIME. WILL CONTINUE TO MONITOR
[2020-09-24 12:00] VITALS: BP 124/63
--- NOTE | 2020-09-24 15:15 | NUR ---
MOLECULAR GENETICISTSHELF FILLER NOTES PT DISCHARGED TO HOME AT THIS TIME. PT MEDICALLY CLEARED FOR DISCHARGE. ALL CARE,LA NEEDS, MEDICATIONS AND TREATMENT ADMINISTERED ANTICIPATED PER ORDER. PT KEPT CLEAN AND DRY. DISCHARGE INSTRUCTIONS PROVIDED FOR. PT VERBALIZED UNDERSTANDING. PT BELONGINGS ACCOUNTED FOR, SIGNED BY PT AND RETURNED TO PT. IV ACCESS REMOVED, PRESSURE APPLIED, SECURED WITH GAUZE AND TAPE. NO S/O BLEEDING NOTED. ID BAND REMOVED.PT TRANSPORTED OUT OF UNIT IN STABLE CONDITION ON A GURNEY BY TWO AMBULANCE PERSONNEL. DR BOOTH AND HELENA, CHARGE NURSE AWARE
== END 2020-09-24 15:15 | disposition home or self-care (01) | DRG 279 ==
LOC: ER 03:47 → TELE1 11:31
PROVIDERS: ADMIT Internal Medicine; ATTEND Internal Medicine
PROC: 5A1D70Z Performance of Urinary Filtration, Intermittent, Less than 6 Hours Per Day (ICD-10-PCS; principal; 2020-09-24)
DX: K72.90 Hepatic failure, unspecified without coma (principal); U07.1 COVID-19; N18.6 End stage renal disease; I12.0 Hypertensive chronic kidney disease with stage 5 chronic kidney disease or end stage renal disease; Z99.2 Dependence on renal dialysis; E11.22 Type 2 diabetes mellitus with diabetic chronic kidney disease; K74.60 Unspecified cirrhosis of liver; R53.1 Weakness; E72.20 Disorder of urea cycle metabolism, unspecified; Z89.512 Acquired absence of left leg below knee; E44.0 Moderate protein-calorie malnutrition; N25.0 Renal osteodystrophy; E88.09 Other disorders of plasma-protein metabolism, not elsewhere classified; Z68.24 Body mass index [BMI] 24.0-24.9, adult; D63.8 Anemia in other chronic diseases classified elsewhere; Z79.4 Long term (current) use of insulin
CPT/HCPCS: 36415; 80048-TC; 80076-TC; 82140-TC; 83690-TC; 83735-TC; 84100-TC; 85025-TC; 85730-TC; 87081-TC; 90935-TC; A4623; C9803; G0378; J1644; J2405; J7030; J7040

== ENCOUNTER 2020-10-18 16:21 | Emergency (ER) | payer OTHER ==
[~2020-10-18] VITALS: Ht 172.7 cm; Wt 72.1 kg
[~2020-10-18 16:21] MED LIST changes: +ATOR80TA PO; -DIPH1TAB PO; -LACT10SO PO; -LISI-603 PO; +LISI20TA30 PO
--- NOTE | 2020-10-18 16:21 | NUR ---
PT BIB SELF C/O ABDOMINAL PAIN +N/V SINCE YESTERDAY. PT IS AAOX4, NOT IN RESPIRATORY DISTRESS, HOOKED TO TRUCK TECHNICIAN, KEPT RESTED AND COMFORTABLE. WILL CONTINUE TO MONITOR.
--- NOTE | 2020-10-18 16:40 | NUR ---
AT BEDSIDE FOR EVAL.
[2020-10-18] MEDS ORDERED: ONDANSETRON HCL/PF 4 MG/2 ML VIAL ONE (16:50)
[2020-10-18] MEDS ORDERED: IV NS 0.9% 500 ML BAG IV ONE (17:00)
[2020-10-18] MEDS ORDERED: ONDANSETRON HCL/PF 4 MG/2 ML VIAL IVP ONE (17:00)
[2020-10-18] MEDS ORDERED: MORPHINE SULFATE INJ 4 MG/ML DISP.SYRIN ONE (17:24)
[2020-10-18 17:31] LABS: BASOPHILS # (AUTO) 0.1 /CMM (0.0-0.2); BASOPHILS % (AUTO) 1.4 % (0.0-2.0); EOSINOPHILS % (AUTO) 3.3 % (0.0-6.0); HEMATOCRIT 38 % (39-51); HEMOGLOBIN 12.6 g/dL (13.5-17.5); LYMPHOCYTES # (AUTO) 1.4 /CMM (0.8-4.8); LYMPHOCYTES % (AUTO) 15.6 % (20.0-44.0); MEAN CORPUSCULAR HGB CONC 33 g/dl (31.0-36.0); MEAN CORPUSCULAR VOLUME 96 fL (80-96); MONOCYTES # (AUTO) 1.6 /CMM (0.1-1.30); MONOCYTES % (AUTO) 17.8 % (2.0-12.0); NEUTROPHILS # (AUTO) 5.7 /CMM (1.8-8.9); NEUTROPHILS % (AUTO) 61.9 % (43.0-81.0); PLATELET COUNT (AUTO) 254 /CMM (150-450); RED BLOOD CELL COUNT(AUTO) 3.98 MIL/uL (4.5-6.0); WHITE BLOOD COUNT (AUTO) 9.2 K/uL (4.3-11.0)
[2020-10-18] MEDS ORDERED: MORPHINE SULFATE INJ 10 MG/ML DISP.SYRIN IV ONE (18:00)
[2020-10-18] MEDS ORDERED: MORPHINE SULFATE INJ 2 MG/ML DISP.SYRIN IV ONE (18:30)
[2020-10-18 18:34] LABS: CALCIUM, SERUM 9.2 mg/dL (8.5-10.1); CREATININE 6.2 mg/dL (0.6-1.3); POTASSIUM 5.1 mmol/L (3.5-5.1)
[2020-10-18 18:41] LABS: ALBUMIN 3.7 g/dL (3.4-5.0); BILIRUBIN,DIRECT 0.2 mg/dL (0.0-0.2); BILIRUBIN,TOTAL 0.6 mg/dL (0.2-1.0); EOSINOPHILS % (MANUAL) 2 % (0-4); LYMPHOCYTES % (MANUAL) 24 % (16-48); MONOCYTES % (MANUAL) 10 % (0-11.0); NEUTROPHILS % (MANUAL) 64 (42-76); TOTAL PROTEIN, SERUM 8.3 g/dL (6.4-8.2)
[2020-10-18 19:25] VITALS: BP 145/75
== END 2020-10-18 19:25 | disposition home or self-care (01) ==
LOC: ER 16:23
DX: R10.13 Epigastric pain (principal); R11.2 Nausea with vomiting, unspecified; I12.0 Hypertensive chronic kidney disease with stage 5 chronic kidney disease or end stage renal disease; E11.22 Type 2 diabetes mellitus with diabetic chronic kidney disease; N18.6 End stage renal disease; E72.20 Disorder of urea cycle metabolism, unspecified; Z99.2 Dependence on renal dialysis; Z98.890 Other specified postprocedural states; Z79.899 Other long term (current) drug therapy
CPT/HCPCS: 74176; 80048; 80076; 83690; 85007; 85025; 96374; 96375; 99284; J2270; J2405

== ENCOUNTER 2021-01-31 19:38 | Emergency (ER) | payer OTHER ==
[~2021-01-31] VITALS: Ht 172.7 cm; Wt 71.2 kg
--- NOTE | 2021-01-31 20:02 | NUR ---
PRESENTED TO THE ER FOR C/O R FOOT PAIN. PER PT HE WAS WALKING WHEN HE HEARD A CRACK. DENIED ANY FALL OR TRAUMA. PT HAS PROSTETIC LEG ON THE L SIDE. ASSISTED TO BED 4 ER AND PLACED ON A MONITOR .
[2021-01-31] MEDS ORDERED: HYDROCODONE/APAP 5/325MG TABLET PO ONE (21:30)
[2021-01-31] MEDS ORDERED: HYDROCODONE/APAP 5/325MG TABLET ONE (21:34)
--- NOTE | 2021-01-31 21:42 | NUR ---
PT IS MEDICALLY STABLE FOR D/C PER MD. R FOOT/ ANKLE NOEMY WRAP PROVIDED .Patient discharged to home in stable condition. Written and verbal after care instructions given. Patient verbalizes understanding of instruction. pt was picked up by transportation arranged by meaghan bishop
[2021-01-31 21:44] VITALS: BP 144/79
== END 2021-01-31 21:44 | disposition home or self-care (01) ==
LOC: ER 19:41
DX: M85.871 Other specified disorders of bone density and structure, right ankle and foot (principal); M79.671 Pain in right foot; I12.0 Hypertensive chronic kidney disease with stage 5 chronic kidney disease or end stage renal disease; E11.22 Type 2 diabetes mellitus with diabetic chronic kidney disease; N18.6 End stage renal disease; E72.20 Disorder of urea cycle metabolism, unspecified; Z98.890 Other specified postprocedural states; Z79.899 Other long term (current) drug therapy
CPT/HCPCS: 73630-TC; 93971-TC

== ENCOUNTER 2021-08-27 06:19 | Inpatient (IN) | payer OTHER ==
[~2021-08-27] VITALS: Ht 172.7 cm; Wt 79.4 kg
--- NOTE | 2021-08-27 06:30 | NUR ---
PT BIBRA 102 FROM DIALYSIS WITH C/O AMS AND LETHARGY. PER EMS PT ONLY HAD 1 HOUR AT DIALYSIS. PT IS CONFUSED AND DOES NOT SEEM TO COMPREHEND. BREATHING EVEN AND UNLABORED, SATURATION AT 99% ON ROOM AIR. PATIENT WAS SEEN AND EXAMINED BY DR GARRETT. PT ATTACHED TO MONITOR AND PULSE OX. WILL CONTINUE TO MONITOR AND CARRY OUT MD ORDERS.
--- NOTE | 2021-08-27 07:02 | NUR ---
BLOOD SENT TO LAB
[2021-08-27 07:25] LABS: BASOPHILS # (AUTO) 0.1 K/uL (0.0-0.2); BASOPHILS % (AUTO) 1.7 % (0.0-2.0); EOSINOPHILS % (AUTO) 7.5 % (0.0-6.0); HEMATOCRIT 38 % (39-51); HEMOGLOBIN 12.8 g/dL (13.5-17.5); LYMPHOCYTES # (AUTO) 1.9 K/uL (0.8-4.8); LYMPHOCYTES % (AUTO) 32.2 % (20.0-44.0); MEAN CORPUSCULAR HGB CONC 34 g/dl (31.0-36.0); MEAN CORPUSCULAR VOLUME 94 fL (80-96); MONOCYTES # (AUTO) 0.8 K/uL (0.1-1.30); MONOCYTES % (AUTO) 13.6 % (2.0-12.0); NEUTROPHILS # (AUTO) 2.7 K/uL (1.8-8.9); PLATELET COUNT (AUTO) 151 K/uL (150-450); RED BLOOD CELL COUNT(AUTO) 4.06 MIL/uL (4.5-6.0)
--- NOTE | 2021-08-27 07:25 | NUR ---
RECEIVED REPORT FROM NAOMI PECK FOR BO. PT IS AAOX2, NOTED RESTLESSNESS, HOOKED TO AGRICULTURAL SCIENCE PROFESSOR, KEPT RESTED AND COMFORTABLE. WILL CONTINUE TO MONITOR.
--- NOTE | 2021-08-27 07:39 | NUR ---
PT IS WHEELED TO CT SCAN VIA [facility].
[2021-08-27 07:40] LABS: CALCIUM, SERUM 9.1 mg/dL (8.5-10.1); CREATININE 7.3 mg/dL (0.6-1.3); POTASSIUM 4.9 mmol/L (3.5-5.1)
[2021-08-27 07:45] LABS: ALBUMIN 3.9 g/dL (3.4-5.0); BILIRUBIN,DIRECT 0.3 mg/dL (0.0-0.2); BILIRUBIN,TOTAL 0.9 mg/dL (0.2-1.0); TOTAL PROTEIN, SERUM 7.4 g/dL (6.4-8.2)
[2021-08-27] MEDS ORDERED: LACTULOSE 10 G/15 ML UDC (PYXIS) ONE (07:59)
[2021-08-27] MEDS ORDERED: LACTULOSE 10 G/15 ML UDC (PYXIS) PO ONE (08:00)
--- NOTE | 2021-08-27 08:02 | NUR ---
[facility] CALLED GATE WATCHMAN PAGED.
--- NOTE | 2021-08-27 09:21 | NUR ---
CALLED NURSING APPRENTICE ELECTRICIAN CALLED FOR TELE BED
[2021-08-27] MEDS ORDERED: TRAZODONE 50 MG TABLET PO PRN (10:00)
[2021-08-27] MEDS ORDERED: DOCUSATE SODIUM 100 MG CAPSULE PO PRN (10:00)
[2021-08-27] MEDS ORDERED: Z GUARD REMEDY 2 OZ OINT TP PRN (10:00)
[2021-08-27] MEDS ORDERED: MAG HYDROX/AL HYDROX/SIMETH 30 ML UDC PO PRN (10:00)
[2021-08-27] MEDS ORDERED: ACETAMINOPHEN 325 MG TABLET PO PRN (10:00)
[2021-08-27] MEDS ORDERED: ONDANSETRON HCL/PF 4 MG/2 ML VIAL IVP PRN (10:00)
[2021-08-27] MEDS ORDERED: MAGNESIUM HYDROXIDE 30 ML UDC PO PRN (10:00)
[2021-08-27] MEDS ORDERED: hydrALAZINE HCL 50 MG TABLET PO PRN (10:00)
--- NOTE | 2021-08-27 11:04 | NUR ---
GOING TO 327.2
--- NOTE | 2021-08-27 11:28 | NUR ---
REPORT GIVEN TO NAOMI BROWNING.
[2021-08-27 11:55] VITALS: BP 156/90
[2021-08-27 12:00] VITALS: BP 156/90
[2021-08-27] MEDS: LACTULOSE 10 G/15 ML UDC (PYXIS) PO SCH ×2 (12:26→16:55)
--- NOTE | 2021-08-27 12:30 | NUR ---
SHANK SCOURER ADMITTING NOTES PT ADMITTED TO UNIT AT 1145 VIA GURNEY ACCOMPANIED BT RN ANTONIO MASON AND E.R TRANSPORTER WITH DX OF ALOC. PT IS A/O X1-2 AT THIS TIME. LETHARGIC AND CONFUSED. UN-ABLE TO GET PROPER ANSWER WHEN ASKED. ORIENTED TO STAFF AND UNIT. PT IS LEFT BKA WITH PROSTHESIS WITH HIM BY BEDSIDE. V/S TAKEN AND RECORDED. PT ON ROOM AIR, TOLERATING WELL, BREATHING EVEN AND UNLABORED. PT WITH AV SHUNT ON PASCUAL WITH + BRUIT AND SHRILL, NO ACTIVE BLEEDING NOTED AT SITE. IV ACCESS NOTED ON RIGHT HAND G #20 INTACT, PATENT AND FLUSHES WELL. LUNGS CLEAR ON AUSCULTATION. ABDOMEN SOFT,. NON-TENDER AND NON-DISTENDED WITH + BOWEL SOUNDS ON FOUR QUADRANTS. PT PLACED ON EXTERNAL RESCUE BOAT OPERATOR WITH CURRENT READING OF NSR, HR ON THE 80'S. SAFETY MEASURES INITIATED: BED IN LOWEST LOCKED POSITION , SIDE-RAILS UP X2-3, BED ALARM ON AND CALL LIGHT W/IN EASY REACH. WILL CONTINUE TO MONITOR PT ACCORDINGLY.
[2021-08-27 16:00] VITALS: BP 146/83
[2021-08-27] MEDS: LISINOPRIL (20MG) 20 MG TABLET PO SCH (16:56)
[2021-08-27] MEDS: hydrALAZINE HCL 10 MG TABLET PO SCH (16:56)
[2021-08-27] MEDS: CARVEDILOL 12.5 MG TABLET PO SCH (16:57)
--- NOTE | 2021-08-27 18:36 | NUR ---
OFFICE SWEEPER CLOSING NOTES PT IN BED RESTING AT AT MODERATE HIGH BACKREST POSITION. TALKING IN THE PHONE WITH HIS FAMILY RIGHT NOW. PT IS MORE ALERT X2-3 NOW BUT STILL A LITTLE FORGETFUL AND ABLE TO ANSWER SIMPLE QUESTIONS ONLY. ON ROOM AIR, TOLERATING WELL, BREATHING EVEN AND UNLABORED. PT WITH AV SHUNT ON PASCUAL WITH + BRUIT AND SHRILL, NO ACTIVE BLEEDING NOTED AT SITE. IV ACCESS ON RIGHT HAND G #20 INTACT, PATENT AND FLUSHES WELL.TELE MONITOR SHOWS NSR, HR ON THE 80'S, NO C/O CARDIAC DISTRESS VOICED. ALL NEEDS AND CARE PROVIDED WELL. SAFETY MEASURES INITIATED: BED IN LOWEST LOCKED POSITION, SIDE-RAILS UP X2, BED ALARM ON AND CALL LIGHT W/IN EASY REACH. WILL ENDORSE BO TO POSTAL SUPPORT EMPLOYEE NURSE
[2021-08-27 20:00] VITALS: BP 153/86
--- NOTE | 2021-08-27 20:14 | NUR ---
MANUFACTURING SHIFT SUPERVISOR OPENING NOTES: RECEIVED PATIENT AWAKE IN BED, BED IN LOW POSITION, CALL LIGHTS WITHIN REACH, NO COMPLAIN OF PAIN AND DISCOMFORT AT THIS TIME, PATIENT ON TELE MONITORING SR-68, WITH IV LINE AT RHAND 320 SL, ON URINAL /DIAPER/ ON RENAL DIET, PATIENT ON RA SATURATING WELL, PATIENT KEPT CLEAN AND DRY, ALL NEEDS MET, WILL CONTINUE TO MONITOR.
[2021-08-27] MEDS: ATORVASTATIN 40 MG TABLET PO SCH (21:16)
[2021-08-28] VITALS: BP 136/71
[2021-08-28 04:00] VITALS: BP 140/70
--- NOTE | 2021-08-28 07:20 | NUR ---
ACCREDITATION MANAGER OPENING NOTE RECEIVED PATIENT ON BED, ASLEEP BUT EASILY AROUSABLE. PATIENT IS ALERT/ ORIENTED X 3-4. ON ROOM AIR WITH EQUAL AND UNLABORED BREATHING. PATIENT DOES NOT COMPLAIN OF PAIN OR DISCOMFORT AT THIS TIME. PATIENT WITH IV ACCESS ON THE RIGHT HAND G20, ON SALINE LOCK, PATENT AND INTACT. WITH RIGHT ARM AV FISTULA WITH POSITIVE BRUIT/ THRILL. COMFORT MEASURES PROVIDED. ENCOURAGED TO DO DEEP BREATHING EXERCISES. SAFETY MEASURES ENSURED WITH BED LOWERED AND LOCKED. SIDERAILS RAISED. CALL LIGHT WITHIN REACH AT ALL TIMES. WILL CONTINUE TO MONITOR PATIENT.
[2021-08-28 07:40] LABS: BASOPHILS # (AUTO) 0.1 K/uL (0.0-0.2); BASOPHILS % (AUTO) 1.5 % (0.0-2.0); EOSINOPHILS % (AUTO) 7.2 % (0.0-6.0); HEMATOCRIT 33 % (39-51); HEMOGLOBIN 11.3 g/dL (13.5-17.5); LYMPHOCYTES % (AUTO) 31.2 % (20.0-44.0); MEAN CORPUSCULAR HGB CONC 35 g/dl (31.0-36.0); MEAN CORPUSCULAR VOLUME 93 fL (80-96); MONOCYTES # (AUTO) 1.2 K/uL (0.1-1.30); MONOCYTES % (AUTO) 17.8 % (2.0-12.0); NEUTROPHILS # (AUTO) 2.8 K/uL (1.8-8.9); NEUTROPHILS % (AUTO) 42.3 % (43.0-81.0); PLATELET COUNT (AUTO) 138 K/uL (150-450); RED BLOOD CELL COUNT(AUTO) 3.52 MIL/uL (4.5-6.0); WHITE BLOOD COUNT (AUTO) 6.5 K/uL (4.3-11.0)
[2021-08-28 08:00] VITALS: BP 129/61
[2021-08-28 08:04] LABS: CALCIUM, SERUM 8.8 mg/dL (8.5-10.1); MAGNESIUM 3.2 mg/dL (1.8-2.4); POTASSIUM 5.1 mmol/L (3.5-5.1)
--- NOTE | 2021-08-28 08:04 | NUR ---
ASSISTANT REFINERY OPERATOR CLOSING NOTES PATIENT SLEEP IN BED COMFORTABLY, BED IN LOW POSITION, CALL LIGHTS WITHIN REACH, NO COMPLAIN OF PAIN AND DISCOMFORT AT THIS TIME, ON ROOM AIR SATURATING WELL, NO RESP DISTRESS WAS OBSERVED, ON TELE MONITORING SR-68, WITH IV LINE AT RIGHT HAND#20 SL, PATIENT ON HEMO DIALYSIS WITH PASCUAL SHUNT, PATIENT KEPT CLEAN AND DRY, ALL NEEDS MET ENDORSE TO INCOMING SHIFT
[2021-08-28 08:17] LABS: CREATININE 9.1 mg/dL (0.6-1.3)
[2021-08-28] MEDS: SEVELAMER CARBONATE 800 MG TABLET PO SCH (09:20)
[2021-08-28] MEDS: VIT B CMPLX 3/FA/VIT C/BIOTIN 1 TAB TABLET PO SCH (09:20)
[2021-08-28] MEDS: hydrALAZINE HCL 10 MG TABLET PO SCH ×2 (09:20→17:23)
[2021-08-28] MEDS: LISINOPRIL (20MG) 20 MG TABLET PO SCH ×2 (09:21→17:24)
[2021-08-28] MEDS: CARVEDILOL 12.5 MG TABLET PO SCH ×2 (09:21→17:23)
[2021-08-28] MEDS: LACTULOSE 10 G/15 ML UDC (PYXIS) PO SCH ×3 (09:23→17:24)
--- NOTE | 2021-08-28 10:04 | NUR ---
WOUND CARE CONSULT; PT REFUSED SKIN ASSESSMENT. CURRENT ETELVINA SCORE IS 17. WILL SEE PRN.
[2021-08-28 12:00] VITALS: BP 151/78
[2021-08-28 16:00] VITALS: BP 146/79
--- NOTE | 2021-08-28 17:39 | NUR ---
TRANSPORTATION PHONE NUMBER PER PATIENT
--- NOTE | 2021-08-28 19:00 | NUR ---
ENTRY LEVEL LAB TECHNICIAN OPENING NOTE RECEIVED PT AWAKE IN BED. A/O X 4. PT IS STABLE ON ROOM AIR. NO SOB NOTED, NO S/S OF RESPIRATORY DISTRESS. PT IS ON EXTERNAL DISTRESSER READING SR @ 74.NO C/O PAIN AT THIS TIME. LEFT UPPER ARM AV FISTULA IN PLACE FOR HD. IV ACCESS IN RIGHT HAND G #20, IV IS INTACT,PATENT, AND FLUSHING WELL. SAFETY MEASURES MAINTAINED AT ALL TIMES. BED IN LOWEST, LOCKED POSITION, HOB ELEVATED, SIDE RAILS UP X2. CALL LIGHT AND TABLE WITHIN REACH. WILL CONTINUE WITH PLAN OF CARE.
--- NOTE | 2021-08-28 19:04 | NUR ---
LINOLEUM FLOOR INSTALLER CLOSING NOTE PATIENT ON BED, ALERT/ ORIENTED X 3-4. ON ROOM AIR WITH EQUAL AND UNLABORED BREATHING. PATIENT DOES NOT COMPLAIN OF PAIN OR DISCOMFORT AT THIS TIME. PATIENT WITH IV ACCESS ON THE RIGHT HAND G20, ON SALINE LOCK, PATENT AND INTACT. WITH RIGHT ARM AV FISTULA WITH POSITIVE BRUIT/ THRILL. COMFORT MEASURES PROVIDED. ENCOURAGED TO DO DEEP BREATHING EXERCISES. SAFETY MEASURES ENSURED WITH BED LOWERED AND LOCKED. SIDERAILS RAISED. CALL LIGHT WITHIN REACH AT ALL TIMES. WILL ENDORSE TO NEXT SHIFT FOR CONTINUITY OF CARE.
[2021-08-28 20:00] VITALS: BP 170/82
[2021-08-28] MEDS: ATORVASTATIN 40 MG TABLET PO SCH (21:49)
--- NOTE | 2021-08-28 21:50 | NUR ---
HYDRALAZINE 50MG PO PRN ADMINISTERED AT THIS TIME FOR BP 170/82. WILL CONTINUE TO MONITOR
[2021-08-29] MEDS ORDERED: GUAIFENESIN/D-METHORPHAN HB 5 ML UDC PO PRN (00:30)
--- NOTE | 2021-08-29 01:33 | NUR ---
PT COUGHING, DR RUTH MADE AWARE, PER DR'S ORDER ADMINISTERED ROBITUSSIN 5ML/1 UNIT PO Q4HR PRN FOR COUGH AT THIS TIME. WILL CONTINUE TO MONITOR.
[2021-08-29 04:00] VITALS: BP 158/74
--- NOTE | 2021-08-29 06:30 | NUR ---
MERRY GO ROUND ATTENDANT CLOSING NOTE PT IS AWAKE IN BED AT THIS TIME. A/O X4. ABLE TO MAKE NEEDS KNOWN. PT IS STABLE ON ROOM AIR. NO SOB NOTED, NO S/S OF RESPIRATORY DISTRESS. DRY COUGH NOTED. PT IS ON EXTERNAL WELLNESS INSTRUCTOR READING. PT DENIES PAIN OR DISCOMFORT AT THIS TIME. ALL NEEDS HAVE BEEN MET. PAIN MANAGEMENT ADMINISTERED PER ORDER. SAFETY, SEIZURE, AND ASPIRATION PRECAUTIONS MAINTAINED AT ALL TIMES. BED IN LOWEST, LOCKED POSITION WITH BED ALARM ON, SIDE RAILS UP X2. HOB ELEVATED. CALL LIGHT AND TABLE WITHIN REACH. WILL ENDORSE TO ONCOMING RN FOR BO.
--- NOTE | 2021-08-29 07:59 | NUR ---
RN OPENING NOTE- RECEIVED PT AWAKE IN BED. A/O X 4. PT IS STABLE ON ROOM AIR. NO SOB NOTED, NO S/S OF RESPIRATORY DISTRESS. PT IS ON EXTERNAL METAL TURNER. NO C/O PAIN AT THIS TIME. LEFT UPPER ARM AV FISTULA IN PLACE FOR HD. IV ACCESS IN RIGHT HAND G #20, IV IS INTACT. SAFETY MEASURES MAINTAINED AT ALL TIMES. BED IN LOWEST, LOCKED POSITION, HOB ELEVATED, SIDE RAILS UP X2. CALL LIGHT AND TABLE WITHIN REACH. WILL CONTINUE WITH PLAN OF CARE.
[2021-08-29] MEDS: LACTULOSE 10 G/15 ML UDC (PYXIS) PO SCH ×3 (09:00→13:00)
[2021-08-29] MEDS: SEVELAMER CARBONATE 800 MG TABLET PO SCH (09:25)
[2021-08-29] MEDS: VIT B CMPLX 3/FA/VIT C/BIOTIN 1 TAB TABLET PO SCH (09:25)
[2021-08-29] MEDS: LISINOPRIL (20MG) 20 MG TABLET PO SCH (09:32)
[2021-08-29] MEDS: hydrALAZINE HCL 10 MG TABLET PO SCH (09:32)
[2021-08-29 09:33] VITALS: BP 132/59
[2021-08-29] MEDS: CARVEDILOL 12.5 MG TABLET PO SCH (09:33)
--- NOTE | 2021-08-29 13:10 | NUR ---
PLIER WORKER NOTE- PT DC AT THIS TIME BY REQUEST. STATES HE MUST GET DC TO GO TO PODIATRY APPOINTMENT. DR BOOTH GAVE TO TO DC. DC AT THIS TIME. AFTERCARE AND ORDERS REVIEWED,. PT TO HAVE HD TOMORROW MORNING FROM PREVIOUS REGULAR HD SCHEDULE. BELONGINGS GATHERED, ID WRISTBAND REMOVED. VS STABLE AOX4, IV HEPLOCK REMOVED. REFUSED SKIN ASSESSMENT PHOTOS. ESCORTED OFF UNIT TO PRIVATE VEHICLE
== END 2021-08-29 13:10 | disposition home or self-care (01) | DRG 279 ==
LOC: ER 06:23 → TELE 11:05
PROVIDERS: ADMIT Internal Medicine; ATTEND Internal Medicine
DX: K72.90 Hepatic failure, unspecified without coma (principal); I12.0 Hypertensive chronic kidney disease with stage 5 chronic kidney disease or end stage renal disease; E44.0 Moderate protein-calorie malnutrition; E11.22 Type 2 diabetes mellitus with diabetic chronic kidney disease; E88.09 Other disorders of plasma-protein metabolism, not elsewhere classified; D64.9 Anemia, unspecified; N25.0 Renal osteodystrophy; Z20.822 Contact with and (suspected) exposure to COVID-19; Z68.26 Body mass index [BMI] 26.0-26.9, adult; N18.6 End stage renal disease; Z99.2 Dependence on renal dialysis; K74.60 Unspecified cirrhosis of liver; Z86.16 Personal history of COVID-19; Z87.11 Personal history of peptic ulcer disease; Z89.512 Acquired absence of left leg below knee
CPT/HCPCS: 36415; 70450-TC; 71045-TC; 80048-TC; 80076-TC; 82140-TC; 83605-TC; 83735-TC; 84100-TC; 84484-TC; 85025-TC; 85730-TC; 86706; 87040-TC; 87081-TC; 87340; A6403; C9803; G0378

== ENCOUNTER 2021-10-31 07:07 | Inpatient (IN) | payer OTHER ==
[~2021-10-31] VITALS: Ht 167.6 cm; Wt 70.3 kg
--- NOTE | 2021-10-31 07:15 | NUR ---
TO ER BED 1, MARIANA [facility] FOR ALTERED MENTAL STATUS, NON VERBAL, DIALYSIS ACCESS RIGHT UPPER ARM, CONNECTED TO MONITOR, BREATHING EVEN AND NON LABORED, AWAITING MD ORDERS
[2021-10-31] MEDS ORDERED: IV NS 0.9% 250 ML IV ONE (07:16)
[2021-10-31] MEDS ORDERED: IOHEXOL-350 100 ML VIAL IV ONE (07:16)
--- NOTE | 2021-10-31 07:16 | NUR ---
TELEMED REQUEST SENT
[2021-10-31 07:27] LABS: BASOPHILS # (AUTO) 0.1 K/uL (0.0-0.2); BASOPHILS % (AUTO) 1.5 % (0.0-2.0); EOSINOPHILS % (AUTO) 6.2 % (0.0-6.0); HEMATOCRIT 37 % (39-51); HEMOGLOBIN 12.5 g/dL (13.5-17.5); LYMPHOCYTES # (AUTO) 1.2 K/uL (0.8-4.8); LYMPHOCYTES % (AUTO) 18.4 % (20.0-44.0); MEAN CORPUSCULAR HGB CONC 34 g/dl (31.0-36.0); MEAN CORPUSCULAR VOLUME 94 fL (80-96); MONOCYTES # (AUTO) 0.9 K/uL (0.1-1.30); MONOCYTES % (AUTO) 14.1 % (2.0-12.0); NEUTROPHILS # (AUTO) 3.8 K/uL (1.8-8.9); NEUTROPHILS % (AUTO) 59.8 % (43.0-81.0); PLATELET COUNT (AUTO) 196 K/uL (150-450); RED BLOOD CELL COUNT(AUTO) 3.94 MIL/uL (4.5-6.0); WHITE BLOOD COUNT (AUTO) 6.4 K/uL (4.3-11.0)
--- NOTE | 2021-10-31 07:40 | NUR ---
Dr Jackson informed of CT report called in by Dr Crook
[2021-10-31] MEDS ORDERED: TERA10CA4 PO (07:58)
[2021-10-31] MEDS ORDERED: AMLO-213 PO (07:58)
[2021-10-31] MEDS ORDERED: CLOP75TA15 PO (07:58)
[2021-10-31] MEDS ORDERED: ASPI-1169 PO (07:58)
[2021-10-31 08:13] LABS: CALCIUM, SERUM 8.9 mg/dL (8.5-10.1); CARBON DIOXIDE 23 mmol/L (21-32); CHLORIDE 94 mmol/L (98-107); GLUCOSE 130 mg/dL (74-106); POTASSIUM 3.9 mmol/L (3.5-5.1); SODIUM SERUM 129 mmol/L (136-145); UREA NITROGEN, BLOOD 43 mg/dL (7-18)
--- NOTE | 2021-10-31 08:24 | NUR ---
COVID SWAB DONE AND SENT TO LAB
--- NOTE | 2021-10-31 09:03 | NUR ---
LACTULOSE 30 G RECTALLY ONCE PER DR BOURNE. THE ORDER IS READ BACK, VERIFIED. NOTED AND CARRIED OUT.
[2021-10-31] MEDS ORDERED: LACTULOSE 10 G/15 ML UDC (PYXIS) PR ONE ×2 (09:30→14:00)
[2021-10-31] MEDS ORDERED: LACTULOSE 10 G/15 ML UDC (PYXIS) ONE (09:47)
--- NOTE | 2021-10-31 10:14 | NUR ---
CALLED NURSING SUP REGARDING PT BED
--- NOTE | 2021-10-31 12:05 | NUR ---
tele [phone]
[2021-10-31] MEDS ORDERED: ASPIRIN 81 MG TAB.CHEW PO SCH (12:30)
[2021-10-31] MEDS ORDERED: HYDROCODONE/APAP 5/325MG TABLET PO PRN (12:30)
[2021-10-31] MEDS ORDERED: TRAZODONE 50 MG TABLET PO PRN (12:30)
[2021-10-31] MEDS ORDERED: ONDANSETRON HCL/PF 4 MG/2 ML VIAL IVP PRN (12:30)
[2021-10-31] MEDS ORDERED: ACETAMINOPHEN 650 MG/SUPP.RECT RC PRN (12:30)
[2021-10-31] MEDS ORDERED: Z GUARD REMEDY 4 OZ OINT TP PRN (12:30)
--- NOTE | 2021-10-31 12:48 | NUR ---
REPORT GIVEN TO ZOYA SALGADO FOR BO
--- NOTE | 2021-10-31 12:59 | NUR ---
TRANSFERRED TO FLOOR IN STABLE CONDITION
[2021-10-31] MEDS: SEVELAMER CARBONATE 800 MG TABLET PO SCH ×2 (13:00→17:27)
--- NOTE | 2021-10-31 13:07 | NUR ---
BORING MACHINE OPERATOR HORIZONTAL NOTES RECEIVED PT FROM E.R. STAFF VIA [facility], PT IS AWAKE, NOT IN DISTRESS, NO SIGN OF PAIN, ASSISTED TO BED, MADE COMFORTABLE, ROOM SET UP ORIENTATION PROVIDED, PT IS A/O X 1-2, FORGETFUL, WITH PERIODS OF CONFUSION BUT ABLE TO ANSWER SIMPLE QUESTIONS, TOLERATES ROOM AIR, NOTED AVF AT LEFT UPPER ARM, NO BLEEDING NOTED, ADMITTING ORDERS RECEIVED FROM DR. PATIÑO, VITALS TAKEN AND RECORDED, KEPT COMFORTABLE IN BED.
[2021-10-31] MEDS ORDERED: SODIUM POLYSTYRENE SULFONATE 15 G/60 ML BOTTLE PO ONE (14:00)
[2021-10-31] MEDS ORDERED: LACTULOSE 10 G/15 ML UDC (PYXIS) PR SCH (14:00)
--- NOTE | 2021-10-31 14:00 | NUR ---
TRUST EVALUATION SUPERVISOR NOTES PT PASSED SWALLOW SCREEN, PO MEDS GIVEN ORDERED, PER DR. KAYLYN WORLEY TO ORDER [facility] SOFT DIET, NOTED AND CARRIED OUT.
[2021-10-31] MEDS: DOCUSATE SODIUM 100 MG CAPSULE PO SCH ×2 (14:07→17:28)
[2021-10-31] MEDS: LACTULOSE 10 G/15 ML UDC (PYXIS) PO SCH ×2 (14:07→17:35)
[2021-10-31] MEDS: CARVEDILOL 12.5 MG TABLET PO SCH ×2 (14:07→17:28)
[2021-10-31] MEDS: AMLODIPINE BESYLATE 10 MG TABLET PO SCH (14:08)
[2021-10-31] MEDS: CLOPIDOGREL BISULFATE 75 MG TABLET PO SCH (14:08)
[2021-10-31] MEDS ORDERED: HEPARIN INFUSION/D5W 500 ML IV PRN (15:30)
[2021-10-31 16:17] VITALS: BP 146/77
[2021-10-31] MEDS ORDERED: HEPARIN SODIUM, PORCINE 5000 UNITS/1 ML VIAL IV ONE (17:30)
--- NOTE | 2021-10-31 19:00 | NUR ---
PUG MILL OPERATOR NOTES PT IN BED RESTING, NO COMPLAINT OF PAIN OR ANY DISCOMFORT, STARTED ON HEPARIN DRIP PER PROTOCOL, NO SIGN OF BLEEDING, PM MEDS GIVEN ORDERED, ALL NEEDS ATTENDED.
--- NOTE | 2021-10-31 19:45 | NUR ---
PIPE CUTTER RECEIVING NOTES RECEIVED PATIENT IN BED, A/OX1-2. NO S/S OF APPARENT DISTRESS ON ROOM AIR. DENIES PAIN AT THIS TIME. 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 TELE MONITOR READING SR 62. PATIENT ON HEPARIN DRIP ON R.FA #18G RUNNING 20 MLS/HR AT 1050 UNITS/HR. PATIENT NOTED TO HAVE L. . BELOW THE KNEE AMPUTATION-- PROSTHETIC LEG AND CANE NOTED AT BED SIDE. SMALL L. ELBOW SKIN TEAR NOTED WELL PASCUAL AV SHUNT THAT HAS DRESSINGS ON IT. ASKING FOR FOOD. NEEDS ATTENDED AT THIS TIME. SAFETY IN PLACE. WILL CONTINUE WITH PLAN OF CARE FOR PATIENT AND CONTINUE TO MONITOR FOR ANY CHANGES WITH THE HEPARIN DRIP.
[2021-10-31 20:00] VITALS: BP 112/63
[2021-10-31] MEDS: ATORVASTATIN 10 MG TABLET PO SCH (23:09)
[2021-10-31] MEDS: TERAZOSIN HCL 5 MG CAPSULE PO SCH (23:09)
[2021-11-01] VITALS: BP 104/60
[2021-11-01] MEDS: LACTULOSE 10 G/15 ML UDC (PYXIS) PO SCH ×4 (00:36→17:43)
--- NOTE | 2021-11-01 00:39 | NUR ---
MONUMENT INSTALLER NOTE APTT RESULT STILL PENDING. FOLLOWED UP WITH LAB.
--- NOTE | 2021-11-01 00:56 | NUR ---
LEAN CONSULTANT NOTE CALLED LAB AGAIN. SAID THAT THE APTT IS STILL RUNNING. 5 MORE MINUTES PER LAB.
--- NOTE | 2021-11-01 01:08 | NUR ---
MUSIC MIXER NOTE CALLED LAB AGAIN REGARDING WRONG DATE FOR THE APTT RESULT. 70.9 UNDER 10/31/21 @0008. I ASKED FOR THEM TO CHANGE IT PER LAB JUST DISREGARD BECAUSE THEY CANNOT CHANGE. CHARGE NURSE, LAURYN MADE AWARE.
--- NOTE | 2021-11-01 01:10 | NUR ---
DISH CARRIER NOTE APTT 70.9 ROUNDED OFF TO 71. ORDER IS TO DECREASE RATE BY 50 UNITS AN HOUR. FROM 1050 TO 1000 UNITS/HR NOW PER HEPARIN DOSING ACS PROTOCOL. 20 MLS/HR AT THE RIGHT FOREARM. NO BLEEDING NOTED. ORDERS CHARTED. NEXT APTT AT 0700 AM. WILL CONTINUE TO MONITOR FOR CHANGES.
[2021-11-01 05:37] VITALS: BP 121/68
[2021-11-01 06:29] LABS: BASOPHILS # (AUTO) 0.1 K/uL (0.0-0.2); BASOPHILS % (AUTO) 1.8 % (0.0-2.0); EOSINOPHILS % (AUTO) 7.7 % (0.0-6.0); HEMATOCRIT 32 % (39-51); HEMOGLOBIN 10.8 g/dL (13.5-17.5); LYMPHOCYTES # (AUTO) 1.9 K/uL (0.8-4.8); LYMPHOCYTES % (AUTO) 33.3 % (20.0-44.0); MEAN CORPUSCULAR HGB CONC 34 g/dl (31.0-36.0); MEAN CORPUSCULAR VOLUME 95 fL (80-96); MONOCYTES # (AUTO) 0.9 K/uL (0.1-1.30); MONOCYTES % (AUTO) 14.7 % (2.0-12.0); NEUTROPHILS # (AUTO) 2.5 K/uL (1.8-8.9); NEUTROPHILS % (AUTO) 42.5 % (43.0-81.0); PLATELET COUNT (AUTO) 197 K/uL (150-450); WHITE BLOOD COUNT (AUTO) 5.8 K/uL (4.3-11.0)
--- NOTE | 2021-11-01 07:25 | NUR ---
LOCOMOTIVE INSPECTOR OPENING NOTES RECEIVED PATIENT IN BED, A/O X3. NO S/S OF APPARENT DISTRESS ON ROOM AIR. DENIES PAIN AT THIS TIME. PATIENT'S LEFT EYE NOTED TO BE REDDISH STILL AND WILL CONTINUE TO MONITOR. TELE MONITOR READING SR 69. PATIENT ON HEPARIN DRIP ON R. FA #18G RUNNING 20 MLS/HR AT 1000 UNITS/HR. PATIENT NOTED TO HAVE L BELOW THE KNEE AMPUTATION, PROSTHETIC LEG AND CANE AT BED SIDE. PASCUAL AV SHUNT THAT HAS DRESSINGS ON IT. SAFETY MEASURES IN PLACE: BED IN LOWEST POSITION, WHEELS LOCKED, SIDE RAILS UP X2, CALL LIGHT WITHIN REACH. WILL CONTINUE WITH PLAN OF CARE AND MONITOR FOR ANY SIGNS OF BLEEDING.
[2021-11-01 07:33] LABS: THYROID STIMULATING HORMONE 3.337 uIU/mL (0.358-3.74)
[2021-11-01 07:44] LABS: CALCIUM, SERUM 7.8 mg/dL (8.5-10.1); MAGNESIUM 2.9 mg/dL (1.8-2.4); POTASSIUM 4.7 mmol/L (3.5-5.1)
--- NOTE | 2021-11-01 07:53 | NUR ---
DATA CONVERSION DEVELOPER NOTE REPORT GIVEN TO NAOMI DOMINGUEZ FOR CONTINUITY OF CARE.
[2021-11-01 08:00] VITALS: BP 112/57
--- NOTE | 2021-11-01 08:00 | NUR ---
VENEER TRIMMER NOTES PATIENT CONTINUES ON HEPARIN DRIP. RECEIVED 0600 AM LABS AT 0700. PT= 11.9, INR= 1.14, APTT= 52.5. NO CHANGES MADE TO THE CURRENT RATE PER PROTOCOL.
[2021-11-01] MEDS ORDERED: ASPIRIN 325 MG TABLET PO SCH (09:00)
[2021-11-01] MEDS ORDERED: ASPIRIN 81 MG TAB.CHEW PO SCH (09:00)
[2021-11-01] MEDS: DOCUSATE SODIUM 100 MG CAPSULE PO SCH ×2 (09:18→17:43)
[2021-11-01] MEDS: CLOPIDOGREL BISULFATE 75 MG TABLET PO SCH (09:20)
[2021-11-01] MEDS: LISINOPRIL (20MG) 20 MG TABLET PO SCH (09:21)
--- NOTE | 2021-11-01 09:22 | NUR ---
WOUND CARE CONSULT: PT PRESENTS WITH LEFT ELBOW SKIN TEAR, PRESENT ON ADMISSION. RECOMMENDATIONS MADE FOR SKIN PEROTECTION AND WOUND CARE. DISCUSSED WITH NURSING STAFF. MD IN AGREEMENT WITH PLAN OF CARE.
[2021-11-01] MEDS: PANTOPRAZOLE 40 MG TABLET.DR PO SCH (09:25)
[2021-11-01] MEDS: SEVELAMER CARBONATE 800 MG TABLET PO SCH ×3 (09:25→17:43)
[2021-11-01] MEDS: AMLODIPINE BESYLATE 10 MG TABLET PO SCH (09:28)
[2021-11-01] MEDS: CARVEDILOL 12.5 MG TABLET PO SCH ×2 (09:28→17:44)
[2021-11-01 10:45] LABS: CREATININE 8.2 mg/dL (0.6-1.3)
[2021-11-01 10:46] LABS: PHOSPHORUS 8.6 mg/dL (2.5-4.9)
[2021-11-01 12:15] VITALS: BP 106/60
[2021-11-01] MEDS ORDERED: LACT10SO58 PO (12:54)
--- NOTE | 2021-11-01 16:00 | NUR ---
BOWLING BALL ASSEMBLER NOTES PATIENT STARTED ON HEMODIALYSIS. WILL CONTINUE MONITORING
[2021-11-01 16:24] VITALS: BP 117/59
--- NOTE | 2021-11-01 18:00 | NUR ---
TELEVISION AGENT NOTES HEPARIN DRIP IS STOPPED. CARDIAC CATH PROCEDURE PENDING TOMORROW AM. PER DR POLANCO IT IS OKAY TO STOP HEPARIN DRIP AND CONFIRMS THAT DR PATIÑO IS AWARE OF PLAN FOR TOMORROW AM. WILL CONTINUE MONITORING PATIENT AND ENDORSE TO THE SCIENTIFIC DIRECTOR NURSE FOR BO
--- NOTE | 2021-11-01 18:50 | NUR ---
ASSISTANT SPA MANAGER CLOSING NOTES PATIENT IN BED, A/O X4. NO S/S OF APPARENT DISTRESS ON ROOM AIR. DENIES PAIN AT THIS TIME. TELE MONITOR READING SR 6O's. PATIENT NO LONGER ON HEPARIN DRIP PER DR POLANCO ORDER. PENDING CATH PROCEDURE IN THE MORNING. PATIENT IS TO BE NPO AT MIDNIGHT. PATIENT IS AWARE OF PROCEDURE AND GAVE ALL WRITTEN CONSENTS. ALL ORDERS CARRIED OUT THROUGH OUT DAY AND NEEDS MET. HD PERFORMED TODAY. SAFETY MEASURES IN PLACE: BED IN LOWEST POSITION, WHEELS LOCKED, SIDE RAILS UP X2, CALL LIGHT WITHIN REACH. WILL ENDORSE TO ARTISTS' BOOKING REPRESENTATIVE NURSE FOR BO.
--- NOTE | 2021-11-01 19:00 | NUR ---
OUTREACH AND EDUCATION SOCIAL WORKER NOTES HEMODIALYSIS COMPLETE. PATIENT MEDICALLY STABLE WITH BP 128/62. NO COMPLICATIONS NOTED OR REPORTED DURING PROCESS. TOTAL FLUIDS REMOVED, 1L. WILL CONTINUE TO MONITOR.
--- NOTE | 2021-11-01 19:55 | NUR ---
HOUSEKEEPING WORKER NOTES SR-71 ON TELE MONITOR,ON BED A/O X4,BREATHING REGULAR,NOT IN ANY FORM OF DISTRESS,NOTED LEFT BKA,S/P HEMODIALYSIS TREATMENT TODAY,TAKEN OUT 1 LITER.WITH LEFT AV SHUNT FOR HD ACCESS,RIGHT FOREARM SALINE LOCK FOR MEDS INTACT AND PATENT.INSTRUCTED NPO POST MIDNIGHT FOR CARDIAC CATH IN AM BY DR PENALOZA.CONSENT ON CHART.WILL CONTINUE TO MONITOR STATUS,CALL LIGHT IN REACH,NEEDS ANTICIPATED.
[2021-11-01 20:00] VITALS: BP 135/70
[2021-11-01] MEDS: ATORVASTATIN 10 MG TABLET PO SCH (21:51)
[2021-11-01] MEDS: TERAZOSIN HCL 5 MG CAPSULE PO SCH (21:52)
[2021-11-02] VITALS: BP 112/53
[2021-11-02] MEDS: LACTULOSE 10 G/15 ML UDC (PYXIS) PO SCH ×4 (00:30→13:25)
--- NOTE | 2021-11-02 00:30 | NUR ---
CURED MEATS SUPERVISOR NOTES DUE LACTULOSE PO HELD,NPO STATUS FOR CARDIAC CATH IN THE MORNING
[2021-11-02 04:00] VITALS: BP 119/59
--- NOTE | 2021-11-02 06:47 | NUR ---
MECHANIC WELDER TRUCK DRIVER NOTES ON BED,A/O X4,KEPT NPO FOR CARDIAC CATH TODAY WITH DR PENALOZA,CONSENT ON CHART,NO DISTRESS.
[2021-11-02 07:50] LABS: ALBUMIN 2.9 g/dL (3.4-5.0); BILIRUBIN,TOTAL 0.6 mg/dL (0.2-1.0); CREATININE 6.2 mg/dL (0.6-1.3); POTASSIUM 4.2 mmol/L (3.5-5.1); TOTAL PROTEIN, SERUM 6.2 g/dL (6.4-8.2)
--- NOTE | 2021-11-02 07:56 | NUR ---
CARDIAC REHABILITATION PROGRAM DIRECTOR OPENING NOTES Pt IS IN BED, RESTING. Pt IS ON ROOM AIR AND TOLERATING WELL, NO COMPLAINTS OF PAIN OR SIGNS OF DISTRESS AT THIS TIME. Pt IS NPO AT THIS TIME EXCEPT FOR MEDS DUE TO CARDIAC CATH PROCEDURE BEING DONE TODAY. SAFETY MEASURES ARE IN PLACE: BED IS LOCKED AND IN LOWEST POSITION. SIDE RAILS UPx2. CALL LIGHT AND BED SIDE TABLE ARE WITHIN REACH. WILL CONTINUE TO MONITOR
[2021-11-02] MEDS: PANTOPRAZOLE 40 MG TABLET.DR PO SCH (08:01)
[2021-11-02] MEDS: SEVELAMER CARBONATE 800 MG TABLET PO SCH ×2 (08:02→13:24)
[2021-11-02] MEDS ORDERED: IV NS 0.9% 1,000 ML ONE (08:18)
[2021-11-02] MEDS ORDERED: IV SET PRIMARY PUMP SET 1 EA INFUS.SET MC ONE (08:18)
[2021-11-02] MEDS ORDERED: LIDOCAINE HCL/MPF 1% 30 ML VIAL IJ ONE (08:19)
[2021-11-02] MEDS ORDERED: IODIXANOL 150 ML IV ONE (08:19)
[2021-11-02] MEDS ORDERED: IODIXANOL 320MG/ML 100 ML IV ONE (08:20)
[2021-11-02 08:26] LABS: CALCIUM, SERUM 7.6 mg/dL (8.5-10.1)
[2021-11-02] MEDS: CARVEDILOL 12.5 MG TABLET PO SCH (09:00)
[2021-11-02] MEDS: AMLODIPINE BESYLATE 10 MG TABLET PO SCH (09:00)
[2021-11-02] MEDS: CLOPIDOGREL BISULFATE 75 MG TABLET PO SCH (09:00)
[2021-11-02] MEDS: LISINOPRIL (20MG) 20 MG TABLET PO SCH (09:00)
[2021-11-02] MEDS ORDERED: IV NS 0.9% 500 ML IV ONE (09:28)
[2021-11-02] MEDS ORDERED: MIDAZOLAM HCL 2 MG/2ML VIAL ONE (09:47)
[2021-11-02] MEDS ORDERED: FENTANYL PF 100MCG/2ML AMPUL ONE (09:47)
[2021-11-02] MEDS ORDERED: IV NS 0.9% 1,000 ML IV ONE (10:30)
[2021-11-02] MEDS: DOCUSATE SODIUM 100 MG CAPSULE PO SCH (10:45)
--- NOTE | 2021-11-02 15:40 | NUR ---
RN NOTES Pt HAS BEEN DISCHARGED. Pt IS MEDICALLY STABLE, A/Ox4. Pt ON ROOM AIR AND TOLERATING WELL. NO COMPLAINTS OF PAIN. IV ACCESS REMOVED. DISCHARGE INSTRUCTIONS EXPLAINED.
[2021-11-03] MEDS ORDERED: ASPIRIN 81 MG TAB.CHEW PO SCH (09:00)
== END 2021-11-02 15:38 | disposition home or self-care (01) | DRG 279 ==
LOC: ER 07:11 → TRANSITION 11:00 → TELE 12:11
PROC: 5A1D70Z Performance of Urinary Filtration, Intermittent, Less than 6 Hours Per Day (ICD-10-PCS; principal; 2021-11-01)
PROC: 4A023N7 Measurement of Cardiac Sampling and Pressure, Left Heart, Percutaneous Approach (ICD-10-PCS; 2021-11-02)
PROC: B211YZZ Fluoroscopy of Multiple Coronary Arteries using Other Contrast (ICD-10-PCS; 2021-11-02)
DX: K72.00 Acute and subacute hepatic failure without coma (principal); I13.2 Hypertensive heart and chronic kidney disease with heart failure and with stage 5 chronic kidney disease, or end stage renal disease; I21.A1 Myocardial infarction type 2; E44.0 Moderate protein-calorie malnutrition; D63.1 Anemia in chronic kidney disease; E88.09 Other disorders of plasma-protein metabolism, not elsewhere classified; E83.9 Disorder of mineral metabolism, unspecified; N18.6 End stage renal disease; E11.22 Type 2 diabetes mellitus with diabetic chronic kidney disease; I50.9 Heart failure, unspecified; I16.0 Hypertensive urgency; K74.60 Unspecified cirrhosis of liver; I16.1 Hypertensive emergency; J32.0 Chronic maxillary sinusitis; Z79.02 Long term (current) use of antithrombotics/antiplatelets; Z86.16 Personal history of COVID-19; Z99.2 Dependence on renal dialysis; Z89.512 Acquired absence of left leg below knee; N25.0 Renal osteodystrophy; Z68.25 Body mass index [BMI] 25.0-25.9, adult; D64.9 Anemia, unspecified; I35.0 Nonrheumatic aortic (valve) stenosis; E11.51 Type 2 diabetes mellitus with diabetic peripheral angiopathy without gangrene; Z79.82 Long term (current) use of aspirin; Z87.11 Personal history of peptic ulcer disease
CPT/HCPCS: 36415; 70450-TC; 71045-TC; 80048-TC; 80053-TC; 80061-TC; 82140-TC; 82962-TC; 83735-TC; 84100-TC; 84443-TC; 84484-TC; 85025-TC; 85610-TC; 85730-TC; 86706; 87081-TC; 87340; 90935-TC; 93307-TC; C1887; C1894; C9803; G0378; G0500; J1644; J2250; J3010; J3490; J7030; J7040; J7050; Q9967

== ENCOUNTER 2022-02-02 23:57 | Inpatient (IN) | payer OTHER ==
[~2022-02-02] VITALS: Ht 172.7 cm; Wt 70.3 kg
[~2022-02-02 23:57] MED LIST changes: +AMLO-213 PO; +ASPI-1169 PO; +CLOP75TA15 PO; -HYDR-4075 PO; -HYDR-4077 PO; +LACT10SO58 PO; +TERA10CA4 PO
--- NOTE | 2022-02-03 00:15 | NUR ---
BIBS C/O LOW BP AFTER DIALYSIS SATURDAY. ALSOO C/O CP AND BACKPAIN WITH HEADACHE X3DAYS. UPON TRIAGE, BP WNL. PT A/OX3. TOLERATING R/A WELL WITH NO SOB. CONNECTED PT TO POX AND MONITOR.
--- NOTE | 2022-02-03 00:20 | NUR ---
PT NOTED WITH PASCUAL HD FISTULA. BKA NOTED.
--- NOTE | 2022-02-03 00:30 | NUR ---
DR. LAW STARKS AT PT'S BEDSIDE
--- NOTE | 2022-02-03 00:45 | NUR ---
HOGSHEAD ROLLER AT PT'S BEDSIDE
[2022-02-03 01:20] LABS: BASOPHILS # (AUTO) 0.1 K/uL (0.0-0.2); BASOPHILS % (AUTO) 0.7 % (0.0-2.0); EOSINOPHILS % (AUTO) 2.3 % (0.0-6.0); HEMATOCRIT 34 % (39-51); HEMOGLOBIN 11.3 g/dL (13.5-17.5); LYMPHOCYTES # (AUTO) 2.5 K/uL (0.8-4.8); LYMPHOCYTES % (AUTO) 27.5 % (20.0-44.0); MEAN CORPUSCULAR HGB CONC 33 g/dl (31.0-36.0); MEAN CORPUSCULAR VOLUME 96 fL (80-96); MONOCYTES # (AUTO) 1.1 K/uL (0.1-1.30); MONOCYTES % (AUTO) 11.9 % (2.0-12.0); NEUTROPHILS # (AUTO) 5.2 K/uL (1.8-8.9); NEUTROPHILS % (AUTO) 57.6 % (43.0-81.0); PLATELET COUNT (AUTO) 303 K/uL (150-450)
--- NOTE | 2022-02-03 01:31 | NUR ---
PT RETURNED TO ER BED [address]
[2022-02-03 01:45] LABS: ALBUMIN 3.3 g/dL (3.4-5.0); BILIRUBIN,TOTAL 0.6 mg/dL (0.2-1.0); POTASSIUM 4.7 mmol/L (3.5-5.1); TOTAL PROTEIN, SERUM 7.5 g/dL (6.4-8.2)
[2022-02-03 01:49] LABS: CREATININE 8.3 mg/dL (0.6-1.3)
--- NOTE | 2022-02-03 03:35 | NUR ---
CALLED DR. ALVAREZ - OTOLARYNGOLOGY FOR CONSULT.
--- NOTE | 2022-02-03 03:46 | NUR ---
FOLLOWED UP WITH CONTACTING ENT KIM AC MD. NO RESPONSE, AWAITING A CALL BACK.
--- NOTE | 2022-02-03 04:07 | NUR ---
R WRIST #18G S/L. COVID ANTIGEN SWAB COLLECTED AND SENT TO LAB
--- NOTE | 2022-02-03 04:10 | NUR ---
CLINICALS AND MOVE PACKET GIVEN TO ADMISSION
--- NOTE | 2022-02-03 04:41 | NUR ---
DR. LAW STARKS ON PHONE CALL WITH DR. HINDS REGARDING ADMISSION
[2022-02-03] MEDS ORDERED: LACTULOSE 10 G/15 ML UDC (PYXIS) ONE (05:30)
[2022-02-03] MEDS ORDERED: VORICONAZOLE IV SCH ×2 (05:30→06:00)
[2022-02-03] MEDS ORDERED: LACTULOSE 10 G/15 ML UDC (PYXIS) PO ONE (05:30)
[2022-02-03] MEDS ORDERED: D5W IV SCH ×2 (05:30→06:00)
--- NOTE | 2022-02-03 05:35 | NUR ---
PT REFUSED LACTULOSE, DR BOURNE MADE AWARE
[2022-02-03] MEDS ORDERED: ACETAMINOPHEN 325 MG TABLET ONE (05:53)
[2022-02-03] MEDS: ACETAMINOPHEN 325 MG TABLET PO PRN ×2 (05:57→12:48)
[2022-02-03] MEDS ORDERED: ONDANSETRON HCL/PF 4 MG/2 ML VIAL IVP PRN (06:00)
[2022-02-03] MEDS ORDERED: MAG HYDROX/AL HYDROX/SIMETH 30 ML UDC PO PRN (06:00)
[2022-02-03] MEDS ORDERED: Z GUARD REMEDY 4 OZ OINT TP PRN (06:00)
[2022-02-03] MEDS ORDERED: LACTULOSE 10 G/15 ML UDC (PYXIS) PO PRN (06:00)
[2022-02-03] MEDS ORDERED: MAGNESIUM HYDROXIDE 30 ML UDC PO PRN (06:00)
[2022-02-03] MEDS ORDERED: ZOLPIDEM TARTRATE 5 MG TABLET PO PRN (06:00)
[2022-02-03] MEDS: PANTOPRAZOLE 40 MG TABLET.DR PO SCH (07:30)
[2022-02-03] MEDS ORDERED: PANTOPRAZOLE 40 MG TABLET.DR PO ONE (07:54)
[2022-02-03] MEDS: VORICONAZOLE 200 MG TABLET PO SCH ×2 (08:10→20:54)
--- NOTE | 2022-02-03 08:14 | NUR ---
BED 306-1
[2022-02-03] MEDS ORDERED: ATRO2DRO4 RIGHTEYE (08:20)
[2022-02-03] MEDS ORDERED: BRIM5DRO3 RIGHTEYE (08:20)
[2022-02-03] MEDS ORDERED: DORZ10DR11 RIGHTEYE (08:20)
--- NOTE | 2022-02-03 08:20 | NUR ---
REPORT GIVEN TO CALVIN SALGADO FOR BO
--- NOTE | 2022-02-03 09:17 | NUR ---
TRANSFERRED TO BED 306 IN STABLE CONDITION
--- NOTE | 2022-02-03 11:00 | NUR ---
ms rn received a new admission from er, 51 year old male came in w/ cc of hypotension,awake ,alert,oriented x4,not in any form of distress, respirations even and unlabored no sob noted. will monitor patient.
[2022-02-03] MEDS: MIDODRINE HCL (5MG) 5 MG TABLET PO SCH ×3 (11:53→17:07)
--- NOTE | 2022-02-03 12:00 | NUR ---
ms rn lunch delivered needs attended.
[2022-02-03] MEDS: IV 1/2NS 1000 ML 1,000 ML IV PRN ×2 (12:42→20:54)
--- NOTE | 2022-02-03 13:00 | NUR ---
ms rn hd rn came to do pt, but pt refused, he claimed that he is too weak to do hd today.
[2022-02-03] MEDS: LACTULOSE 10 G/15 ML UDC (PYXIS) PO SCH ×2 (13:30→17:34)
[2022-02-03] MEDS ORDERED: TRAZODONE 50 MG TABLET PO PRN (13:30)
[2022-02-03] MEDS ORDERED: HYDROCODONE/APAP 5/325MG TABLET PO PRN (13:30)
[2022-02-03] MEDS ORDERED: BRIMONIDINE TARTRATE OPHT SOLN 5 ML BOTTLE RIGHTEYE SCH (13:35)
[2022-02-03] MEDS: VIT B CMPLX 3/FA/VIT C/BIOTIN 1 TAB TABLET PO SCH (14:35)
[2022-02-03] MEDS: ASPIRIN 81 MG TAB.CHEW PO SCH (14:36)
--- NOTE | 2022-02-03 15:30 | NUR ---
ms rn being seen by dr. mcneal at this time.
[2022-02-03 16:29] VITALS: BP 80/58
[2022-02-03] MEDS ORDERED: TIMOLOL MAL/DORZOLAM HCL OPHTH 10 ML BOTTLE RIGHTEYE SCH (17:00)
[2022-02-03] MEDS ORDERED: ATROPINE SULFATE OPHTH SOLN 15 ML BOTTLE RIGHTEYE SCH (17:00)
[2022-02-03] MEDS: SEVELAMER CARBONATE 800 MG TABLET PO SCH (17:31)
--- NOTE | 2022-02-03 19:00 | NUR ---
ms rn on bed, no distress noted.
--- NOTE | 2022-02-03 19:30 | NUR ---
RN OPENING NOTE PATIENT IN BED, AWAKE. PATIENT IS A/O X 4, ABLE TO MAKE NEEDS KNOWN. PATIENT IS ON RA, 100% 02 SATURATION. PATIENT HAS A RFA 18 G WITH 1/2 NS AT 125 ML/HR. PATIENT COMPLAINS OF MILD PAIN ON THE BACK, DOES NOT WANT ANY PAIN MEDICATION OR ICE PACKS. LBKA, PROSTHESIS AT BEDSIDE. SAFETY MEASURES IN PLACE: BED LOCKED AND IN LOWEST POSITION, CALL LIGHT WITHIN REACH, SIDE RAILS UP. WILL MONITOR PATIENT CLOSELY.
[2022-02-03 20:00] VITALS: BP_SYST 116; BP_DIAS 58; BP_DIAS 92
--- NOTE | 2022-02-03 20:14 | NUR ---
EMESIS X 1 AND NAUSEA PRESENT, DID NOT WANT ANTIEMETICS. PATIENT STATES IF IT HAPPENS AGAIN HE WILL LET ME KNOW.
--- NOTE | 2022-02-03 21:15 | NUR ---
RN NOTE PATIENT REFUSED TERAZOSIN, STATES WANTS BP TO GO UP AND DOESNT REMEMBER WHAT THE MED IS FOR EVEN THOUGH I HAVE EXPLAINED IT TO PATIENT. RISK AND BENEFITS EXPLAINED.
[2022-02-03] MEDS ORDERED: TERAZOSIN HCL 5 MG CAPSULE PO SCH (22:00)
[2022-02-04] VITALS (13 sets, daily range): BP systolic 84–127; BP diastolic 38–85
[2022-02-04] MEDS: LACTULOSE 10 G/15 ML UDC (PYXIS) PO SCH ×3 (01:30→12:38)
--- NOTE | 2022-02-04 01:48 | NUR ---
RN NOTE PATIENT REFUSED LACTULOSE, EDUCATED ON RISK AND BENEFITS, PATIENT STILL REFUSING.
--- NOTE | 2022-02-04 01:54 | NUR ---
RN NOTE MRSA SWAB COLLECTED FRM BOTH NARES, AWAITING LAB TRIPLE VALVE TESTER
[2022-02-04] MEDS: IV 1/2NS 1000 ML 1,000 ML IV PRN ×2 (05:03→14:19)
--- NOTE | 2022-02-04 06:05 | NUR ---
zofran given d/t patient throwing up and having nausea. will reassess med effectiveness.
[2022-02-04 06:12] LABS: BASOPHILS % (AUTO) 0.2 % (0.0-2.0); EOSINOPHILS % (AUTO) 0.3 % (0.0-6.0); HEMATOCRIT 35 % (39-51); HEMOGLOBIN 11.3 g/dL (13.5-17.5); LYMPHOCYTES # (AUTO) 1.7 K/uL (0.8-4.8); LYMPHOCYTES % (AUTO) 13.9 % (20.0-44.0); MEAN CORPUSCULAR HGB CONC 33 g/dl (31.0-36.0); MEAN CORPUSCULAR VOLUME 98 fL (80-96); NEUTROPHILS # (AUTO) 9.7 K/uL (1.8-8.9); NEUTROPHILS % (AUTO) 77.6 % (43.0-81.0); PLATELET COUNT (AUTO) 295 K/uL (150-450); RED BLOOD CELL COUNT(AUTO) 3.54 MIL/uL (4.5-6.0); WHITE BLOOD COUNT (AUTO) 12.5 K/uL (4.3-11.0)
[2022-02-04 06:19] LABS: CALCIUM, SERUM 9.3 mg/dL (8.5-10.1); MAGNESIUM 3.1 mg/dL (1.8-2.4); POTASSIUM 5.3 mmol/L (3.5-5.1)
[2022-02-04] MEDS: ACETAMINOPHEN 325 MG TABLET PO PRN ×2 (06:20→14:34)
--- NOTE | 2022-02-04 06:20 | NUR ---
tylenol given for mild headache
--- NOTE | 2022-02-04 07:00 | NUR ---
DIE TRIPPER OPENING NOTES LAYING IN BED, A/O X 4, ABLE TO MAKE NEEDS KNOWN. ON 2 LPM O2 VIA CANNULA AT 100% O2, NO S/S SOB OR RESPIRATORY DISTRESS. PATIENT COMPLAINT OF 6/10 CHEST PAIN RADIATING TO BACK, MORPHINE AND OPIATE PAIN MEDICATIONS HELD AT THIS TIME DUE TO LOW BP (86/58). PATIENT ON 1/ NS @ 125 ML/HR VIA RFA 18 G. ON TELE MONITOR READING SINUS TACHY 118. PASCUAL SHUNT WITH THRILL AND BRUIT NOTED. LBKA, PROSTHESIS AT BEDSIDE. SAFETY MEASURES IN PLACE: BED LOCKED AND IN LOWEST POSITION, CALL LIGHT WITHIN REACH, SIDE RAILS UP. WILL MONITOR PATIENT CLOSELY. Addendum: 02/04/22 at 0809 by DAYTON WEIR RN PATIENT REFUSING ICE PACK OR OTHER NON-PHARMACOLOGICAL INTERVENTIONS FOR PAIN AT THIS TIME. PENDING RESPONSE FROM MD REGARDING INTERVENTIONS FOR PATIENT PAIN.
--- NOTE | 2022-02-04 07:06 | NUR ---
dr. warren notified of patient having chest pain radiating to the l shoulder. patient does not have any sob, put on 2lpm, 100%. bp 95/63. tele monitor reading uncontrolled afib with [address] warren ordered stat troponin, and to notify md when results come back with trop and stat ekg.
[2022-02-04 07:19] LABS: CREATININE 9.4 mg/dL (0.6-1.3); PHOSPHORUS 8.7 mg/dL (2.5-4.9)
[2022-02-04] MEDS: PANTOPRAZOLE 40 MG TABLET.DR PO SCH (07:46)
[2022-02-04] MEDS: SEVELAMER CARBONATE 800 MG TABLET PO SCH ×2 (07:46→12:39)
[2022-02-04] MEDS ORDERED: VORICONAZOLE 200 MG TABLET PO SCH (08:00)
[2022-02-04] MEDS: VIT B CMPLX 3/FA/VIT C/BIOTIN 1 TAB TABLET PO SCH (08:17)
[2022-02-04] MEDS: ASPIRIN 81 MG TAB.CHEW PO SCH (08:17)
[2022-02-04] MEDS: MIDODRINE HCL (5MG) 5 MG TABLET PO SCH ×2 (08:17→12:39)
--- NOTE | 2022-02-04 08:20 | NUR ---
HEALTH INFORMATION MANAGEMENT DIRECTOR NOTES PATIENT GIVEN ASPIRIN 81 MG PO TAB X1 FOR PAIN Addendum: 02/04/22 at 1037 by DAYTON WEIR RN DAY SHIFT MD WAS ALSO NOTIFIED OF PATIENT CHEST PAIN, PICTURE OF EKG SENT, AND STATUS OF PATIENT COMMUNICATED AT 0820
[2022-02-04 14:46] LABS: AMYLASE 16 U/L (25-115); LIPASE 37 U/L (73-393)
--- NOTE | 2022-02-04 15:56 | NUR ---
LOGGING SUPERINTENDENT NOTES I WAS IN THE PATIENT'S ROOM AND WAS SPEAKING TO PATIENT REGARDING HIS SCHEDULED MRI. PATIENT WAS RESPONSIVE AND SPEAKING. AT 1534, PATIENT SUDDENLY BECAME NON-RESPONSIVE TO QUESTIONS. I CALLED FOR ASSISTANCE FROM ASSEMBLY MACHINE TENDER WHO ENTERED THE ROOM AND QUICKLY ASSESSED THE PATIENT, AND A CODE BLUE WAS INITIATED AT 1534. CPR STARTED, TEAM ARRIVED, ACLS PROTOCOL FOLLOWED, INTUBATED AND TRANSFERRED TO ICU WITH FULL VITAL SIGNS. PATIENT TRANSFERRED @ 1556 AND SURVIVED CODE. REFER TO CARDIOPULMONARY ARREST RECORD FOR DETAILS. PHONE NUMBER FOR NEXT OF KIN (BROTHER) HARSHAL CALLED @ 1616 BUT NUMBER NON-FUNCTIONAL AND UNABLE TO LEAVE VOICEMAIL FOR FAMILY. NO OTHER FAMILY CONTACT NUMBER FOUND IN PATIENT RECORDS. AMOR CHRISTIANSEN NOTIFIED @ 1553. REPORT GIVEN TO ICU NURSE AND ALL BELONGINGS TRANSFERRED TO ICU. Addendum: 02/04/22 at 1753 by DAYTON WEIR RN INCIDENT REPORT FILED ON CONVERGE,
[2022-02-04] MEDS ORDERED: NOREPINEPHRINE 8 MG in IV NS 0.9% 242 ML IV PRN (16:00)
--- NOTE | 2022-02-04 16:14 | NUR ---
RN NOTES RECEIVED PT FROM 3W,S/P CODE BLUE ON 3W , INTUBATED, ON VENT, FIO2 AT 100%, A.FIB ON MONITOR, . UNABLE TO GET O2 SAT , AWARE , CORE T=89.6, PT IS HARD STICK , PICC LINE ORDER INPLACE, CONTINUE TO MONITOR .
[2022-02-04] MEDS ORDERED: DEXTROSE 50%-WATER 50 ML DISP.SYRIN ONE ×2 (16:15→16:33)
--- NOTE | 2022-02-04 16:15 | NUR ---
RN NOTES CODE BLUE CALLED ON , CHARGE NURSE ATTENDED CODE BLUE . PT GOT INTUBATED AND TRANSFER TO ICU ROOM 257.
--- NOTE | 2022-02-04 16:20 | NUR ---
RN NOTES PT ARRIVED AFTER CN ATTENDED CHRISTA GARCIA IN ROOM 306 WITH CHRISTA GARCIA STAFF, ER PHYSICIAN, RT TEAM. PRIMARY RN OBTAINED BELONGINGS AND REPORT FROM 3WEST RN. PT PLACED ON THE MONITOR. RN WILL CONTINUE POC AND ANTICIPATE NEEDS. SAFETY MEASURES IN PLACE, BED LOCKED AND IN LOWEST POSITION, SIDE RAILS UPX2, CALL LIGHT WITHIN REACH, BED ALARM ARMED.
[2022-02-04] MEDS ORDERED: PROPOFOL 10MG/ML 50ML 50 ML IV PRN (16:30)
[2022-02-04] MEDS ORDERED: EPINEPHRINE (1:10,000) SYRINGE 1 MG/10 ML DISP.SYRIN IVP ONE ×5 (16:35→18:41)
[2022-02-04] MEDS ORDERED: DEXTROSE 50%-WATER 50 ML DISP.SYRIN IV ONE (16:35)
[2022-02-04] MEDS ORDERED: SODIUM BICARBONATE SYR 50 MEQ/50 ML DISP.SYRIN IV ONE ×4 (16:35→18:41)
[2022-02-04] MEDS ORDERED: CALCIUM CHLORIDE 1,000 MG/10 ML DISP.SYRIN IV ONE ×4 (16:35→18:41)
[2022-02-04] MEDS ORDERED: DIATR MEGLU/DIATRIZOATE SODIUM 30 ML BOTTLE (GASTROGRAPHIN) ONE (16:52)
--- NOTE | 2022-02-04 17:04 | NUR ---
RN NOTES HR IN 20'S, SECOND CODE CALLED ,SEE CODE BLUE SHEET RECORD.
--- NOTE | 2022-02-04 17:16 | NUR ---
RN NOTES ROSC ACHIEVED , CONTINUE TO MONITOR. SEE CODE BLUE SHEET .
--- NOTE | 2022-02-04 17:25 | NUR ---
RT PATIENT CODED FOR A SECOND TIME, CPR INITIATED. ROSC WAS REACHED, PATIENT PLACED BACK ON VENTILATOR. ER DOCTOR WILL BE PLACING AN A-LINE. ABG WILL BE ATTAINED AFTER A-LINE INSERTION.
[2022-02-04 17:30] LABS: BASOPHILS % (AUTO) 0.2 % (0.0-2.0); EOSINOPHILS % (AUTO) 0.3 % (0.0-6.0); HEMATOCRIT 34 % (39-51); HEMOGLOBIN 10.1 g/dL (13.5-17.5); LYMPHOCYTES # (AUTO) 1.8 K/uL (0.8-4.8); LYMPHOCYTES % (AUTO) 15.8 % (20.0-44.0); MEAN CORPUSCULAR HGB CONC 30 g/dl (31.0-36.0); MEAN CORPUSCULAR VOLUME 109 fL (80-96); MONOCYTES # (AUTO) 0.5 K/uL (0.1-1.30); NEUTROPHILS # (AUTO) 9.1 K/uL (1.8-8.9); NEUTROPHILS % (AUTO) 79.7 % (43.0-81.0); PLATELET COUNT (AUTO) 125 K/uL (150-450); WHITE BLOOD COUNT (AUTO) 11.4 K/uL (4.3-11.0)
--- NOTE | 2022-02-04 17:57 | NUR ---
MRI WAS NOT DONE PATIENT UNSTABLE, TRY TOMORROW.
[2022-02-04 17:59] LABS: ABG BASE EXCESS -31.4 mmol/L; ABG OXYGEN SATURATION 33.5 % (92.0-98.5); ABG PCO2 44.2 mmHg (35.0-45.0); ABG PH 6.675 (7.350-7.450); ABG PO2 42.8 mmHg (75.0-100.0); COHb 0.6 % (0.5-1.5); MetHb 0.7 % (0.0-1.5); O2Hb 33.1 % (94.0-97.0); SITE, ABG Other
[2022-02-04 17:59] LABS: ALBUMIN 2.2 g/dL (3.4-5.0); BILIRUBIN,TOTAL 0.6 mg/dL (0.2-1.0); CALCIUM, SERUM 10.9 mg/dL (8.5-10.1); POTASSIUM 4.6 mmol/L (3.5-5.1); TOTAL PROTEIN, SERUM 5.4 g/dL (6.4-8.2)
--- NOTE | 2022-02-04 18:00 | NUR ---
MD COMMUNICATION DR. CLOUD OG TUBE IS COILED AND NOT IN STOMACH. RN ACKNOWLEDGED AND WILL ENDORSE REMOVAL TO AUTO TRANSPORT DRIVER RN.
[2022-02-04] MEDS ORDERED: Sodium Bicarbonate 50 MEQ/50 ML VIAL IV ONE (18:09)
[2022-02-04 18:18] LABS: CREATININE 9.2 mg/dL (0.6-1.3)
[2022-02-04] MEDS: EPINEPHRINE (1:1000) 10 MG in IV NS 0.9% 240 ML IV PRN ×2 (18:30→18:44)
--- NOTE | 2022-02-04 18:30 | NUR ---
RN NOTES PT REMAINS INTUBATED, AND ON VENT, FIO2 AT100%, EPI DRIP AT .5 MCG/KG/MIN, BICARB AT 100CC/HR RUNNING , S/C CODE BLUE x3, ON THIS SHIFT, HR IN 80'S , KULDIP ASSEMBLER CONVERTIBLE TOP AWARE , ASSEMBLER CONVERTIBLE TOP NOTIFIED REGARDING LAB RESULTS . REPORT GIVEN TO RN FOR CONTINUITY OF CARE .
--- NOTE | 2022-02-04 18:34 | NUR ---
RN NOTES PT USTABLE , ECHO CAN BE DONE LATER PER KULDIP GARRISON.
--- NOTE | 2022-02-04 18:50 | NUR ---
CRITICAL LAB LAB CALLED WITH CRITICAL LAB, HCO3 IS 8, GLUCOSE IS 353 AND CREATININ IS 9.8. RN INFORMED AMOR CHRISTIANSEN DNP ACKNOWLEDGED AND GAVE NO ORDERS.
[2022-02-04] MEDS ORDERED: CEFEPIME 1 GM in IV D5W 50 ML IV SCH (19:00)
[2022-02-04] MEDS ORDERED: Sodium Bicarbonate 100 MEQ in IV D5/ 0.9% NACL 1,000 ML IV SCH (19:00)
[2022-02-04 19:02] LABS: ALBUMIN 2.4 g/dL (3.4-5.0); BILIRUBIN,TOTAL 0.7 mg/dL (0.2-1.0); CALCIUM, SERUM 12.3 mg/dL (8.5-10.1); POTASSIUM 5.2 mmol/L (3.5-5.1); TOTAL PROTEIN, SERUM 5.8 g/dL (6.4-8.2)
[2022-02-04 19:04] LABS: CREATININE 9.8 mg/dL (0.6-1.3)
[2022-02-04 19:51] LABS: BASOPHILS % (AUTO) 0.2 % (0.0-2.0); EOSINOPHILS % (AUTO) 0.7 % (0.0-6.0); HEMATOCRIT 37 % (39-51); HEMOGLOBIN 11.2 g/dL (13.5-17.5); LYMPHOCYTES % (AUTO) 16.7 % (20.0-44.0); MEAN CORPUSCULAR HGB CONC 30 g/dl (31.0-36.0); MEAN CORPUSCULAR VOLUME 108 fL (80-96); MONOCYTES # (AUTO) 0.4 K/uL (0.1-1.30); MONOCYTES % (AUTO) 3.2 % (2.0-12.0); NEUTROPHILS # (AUTO) 9.2 K/uL (1.8-8.9); NEUTROPHILS % (AUTO) 79.2 % (43.0-81.0); PLATELET COUNT (AUTO) 112 K/uL (150-450); RED BLOOD CELL COUNT(AUTO) 3.44 MIL/uL (4.5-6.0); WHITE BLOOD COUNT (AUTO) 11.7 K/uL (4.3-11.0)
--- NOTE | 2022-02-04 19:55 | NUR ---
RN NOTES PT SUPINE, CODE BLUE CALLED ON PT, DIGITAL CONTENT COORDINATOR RN ABBE ATTENDING. ONGOING TITRATION OF EPI. HCO DRIP INFUSING. REPORT AND SBAR GIVEN AT 1940. R PICC IS PATIENT AND INTACT. ALL QUESTIONS ANSWERED. SAFETY MEASURES IN PLACE, BED LOCKED AND IN LOWEST POSITION, SIDE RAILS UPX2, CALL LIGHT WITHIN REACH, BED ALARM ARMED.
[2022-02-04] MEDS ORDERED: VANCOMYCIN 1 GM in IV D5W 250ml IV ONE (20:00)
--- NOTE | 2022-02-04 21:16 | NUR ---
HOT STRIP FINISHER. RECEIVED THE PT S/P CODE BLUE .PT WAS VERY UNSTABLE. EPI DRIP AND BICARB DRIP RUNNING. PT ORALLY INTUBATED TODAY. ETT 7.5CM,LIP 25CM,AC 16,TV 500,FIO2 100. SAT 45%, PT BODY IS VERY COLD. SHAHNAZ HUGGER PLACED. PT CODED AT 1950. ACLS PROTOCOL INITIATED. ER MD HESTER AT BED SIDE. SPOKE WITH PT FAMILY. SEE CODE BLUE SHEET. PRONOUNCED AT 2012. NOTIFIED [facility] SPOKE PERSON ANA LILIA. CASE # [id number].POST MORTEM CARE GIVEN. BODY SEND TO [facility]. [facility] RELEASED THE BODY.
[2022-02-05] MEDS ORDERED: SODIUM BICARBONATE SYR 50 MEQ/50 ML DISP.SYRIN IV ONE (01:04)
[2022-02-05] MEDS ORDERED: EPINEPHRINE (1:10,000) SYRINGE 1 MG/10 ML DISP.SYRIN IVP ONE (01:04)
[2022-02-05] MEDS ORDERED: VANCOMYCIN POST DIALYSIS 500MG IV PRN ×2 (12:00)
[2022-02-05] MEDS ORDERED: DOSE PER PHARMACY (MD SPECIFY MEDICATION) 1 EA IV SCH (14:34)
[2022-02-07 09:23] LABS: IMMUNOGLOBULIN E,TOTAL 201 IU/mL (6-495)
== END 2022-02-04 20:13 | DRG 137 ==
LOC: ER 02-03 00:04 → TRANSITION 02-03 05:32 → MED 02-03 08:52 → TELE 02-04 10:25 → ICU 02-04 16:10 → UNDODISIN 02-05 01:05
PROVIDERS: ADMIT Nurse Practitioner Acute Care; ATTEND Nurse Practitioner Acute Care
PROC: 5A1D70Z Performance of Urinary Filtration, Intermittent, Less than 6 Hours Per Day (ICD-10-PCS; 2022-02-03)
PROC: 0BH17EZ Insertion of Endotracheal Airway into Trachea, Via Natural or Artificial Opening (ICD-10-PCS; principal; 2022-02-04)
PROC: 02HV33Z Insertion of Infusion Device into Superior Vena Cava, Percutaneous Approach (ICD-10-PCS; 2022-02-04)
PROC: B548ZZA Ultrasonography of Superior Vena Cava, Guidance (ICD-10-PCS; 2022-02-04)
PROC: 5A2204Z Restoration of Cardiac Rhythm, Single (ICD-10-PCS; 2022-02-04)
DX: J15.6 Pneumonia due to other Gram-negative bacteria (principal); B46.5 Mucormycosis, unspecified; E44.1 Mild protein-calorie malnutrition; E72.20 Disorder of urea cycle metabolism, unspecified; E87.2 Acidosis; I12.0 Hypertensive chronic kidney disease with stage 5 chronic kidney disease or end stage renal disease; D63.1 Anemia in chronic kidney disease; K72.90 Hepatic failure, unspecified without coma; N18.6 End stage renal disease; E88.09 Other disorders of plasma-protein metabolism, not elsewhere classified; E11.22 Type 2 diabetes mellitus with diabetic chronic kidney disease; Z99.2 Dependence on renal dialysis; Z79.82 Long term (current) use of aspirin; Z79.899 Other long term (current) drug therapy; K74.60 Unspecified cirrhosis of liver; Z87.11 Personal history of peptic ulcer disease; F10.21 Alcohol dependence, in remission; H54.61 Unqualified visual loss, right eye, normal vision left eye; E87.5 Hyperkalemia; I20.0 Unstable angina; Z20.822 Contact with and (suspected) exposure to COVID-19; Z89.512 Acquired absence of left leg below knee
CPT/HCPCS: 31720; 36415; 36569; 36600; 70450-TC; 71045-TC; 71250-TC; 80048-TC; 80053-TC; 82140-TC; 82150-TC; 82785; 82803-TC; 82962-TC; 83690-TC; 83735-TC; 84100-TC; 84484-TC; 85025-TC; 86706; 86803; 87040-TC; 87081-TC; 87350; 87806; 87899; 92950-TC; 94002-TC; 94799-TC; C9803; G0378; J0171; J0692; J2405; J3370; J3490; J7040; J7042; J7050; J7060; Q9963; U0003